=== PATIENT | female | born 1960 | race Caucasian/White ===

== ENCOUNTER 2017-01-12 15:05 | Emergency (ER) | payer MEDICARE, MEDICAID ==
[~2017-01-12] VITALS: Ht 162.6 cm; Wt 85.7 kg
[~2017-01-12 15:05] MED LIST: ABILIFY2 MG PO; ACETAMINOPHEN &1 TA1 PO; ACETAMINOPHEN500 M3 PO; ARIPIPRAZO10 MG/TABL PO; ATIVAN GENERIC 11 MG PO; CARAFATE1 GM PO; CLARITIN 10MG T10 MG PO; CLARITIN REDITA10 MG PO; CLONAZEPAM 1MG T1 MG PO; CYMBALTA30 M1 PO; CYMBALTA60 MG PO; FOLIC ACID 1MG T1 MG PO; GABAPENTIN 600600 MG PO; GABAPENTIN100 M1 PO; HUMIRA40 MG/0.1 SC; HYDROCODONE-APA1 TA1 PO; LASIX 40MG. TAB40 MG PO; LASIX20 MG PO; LEVAQUIN 750 M750 MG PO; LEVOTHYROXIN0.075 M1 PO; LIPITOR40 MG PO; LISINOPRIL 10MG10 MG PO; LISINOPRIL 20MG20 MG PO; LYRICA75 MG PO; MEDROL 4MG. DOSE4 MG PO; MELOXICAM15 MG PO; METHOTREXATE 22.5 MG PO; METOCLOPRAMIDE H5 MG PO; MIRALAX(PO17 GM/1 PA PO; NEXIUM20 MG PO; NICOTINE PATCH;21 MG TD; NORCO 325 MG-51 TAB PO; OMEPRAZOLE40 MG PO; OMNICEF 300 MG300 MG PO; OXAZEPAM 15MG C15 M1 PO; PHENERGAN 25MG.25 M1 PO; PRILOSEC20 M1 PO; PROGESTERONE100 M1 PO; RANITIDINE HCL150 MG PO; SEROQUEL100 MG PO; TORSEMIDE5 MG PO; TOVIAZ8 MG PO; ULTRACET 325 MG1 TAB PO; ZOFRAN 8MG TABLE8 MG PO
[2017-01-12] MEDS ORDERED: GABAPENTIN800 MG PO (15:13)
[2017-01-12] MEDS ORDERED: IBU800 MG PO (15:13)
--- OUTSIDE RECORDS SUMMARY | 2017-01-12 15:35 | External Medical Summary Rpt ---
Author Author , Organization [employer] Address Unknown Phone Unavailable Care Team Providers Care Art Therapist Name Role Phone ROBBY ARVIZU MD, PSC, Unavailable Unavailable ROBBY ARVIZU MD, PSC RUKHSANA QUINTEROS, Unavailable Unavailable [facility] BALLARD WRIGHT, MD,PSC BARDGETT, JR JAM, Unavailable Unavailable BARDGETT, JR JAM BEERS HALLIE, BEERS HALLIE Unavailable Unavailable BEERS HALLIE, BEERS HALLIE Unavailable Unavailable [facility] Unavailable Unavailable [facility], [facility] BRANDSER SHAZIA, Unavailable Unavailable BRANDSER SHAZIA FERNANDEZ, FERNANDEZ Unavailable Unavailable FERNANDEZ KEYUR, Unavailable Unavailable FERNANDEZ KEYUR C HAIR IRWIN MD Unavailable Unavailable PSC, C HAIR IRWIN MD PSC SOOD ERIC, SOOD Unavailable Unavailable ERIC [facility] RONALD J, RONALD J Unavailable Unavailable Law CARDENAS, RONALD, Unavailable Unavailable J G [facility], [facility] MIRANDA EMERALD, Unavailable Unavailable MIRANDA EMERALD JIN YOHANNES, Unavailable Unavailable JIN YOHANNES JIN, KILEY, Unavailable Unavailable JIN, KILEY DARDINGER SMITHA, Unavailable Unavailable DARDINGER SMITHA DAMICO GONZÁLEZ, Unavailable Unavailable DAMICO GONZÁLEZ DANYA BAR, DANYA BAR Unavailable Unavailable DUE THO, DUE THO Unavailable Unavailable EISENSTEIN ROBIN, Unavailable Unavailable EISENSTEIN ROBIN KELSEY TERRA, KELSEY TERRA Unavailable Unavailable [facility] Unavailable [facility]available [facility], [facility] FROILAN GONZÁLEZ, FROILAN Unavailable Unavailable GONZÁLEZ [facility] Unavailable Unavailable [facility], [facility] HEEB CHR, HEEB CHR Unavailable Unavailable HOBLITZEL OSIEL, Unavailable Unavailable HOBLITZEL OSIEL [facility] Unavailable [facility]available [facility], [facility] Unavailable [facility]available [facility], [facility] TAZ GRE, TAZ GRE Unavailable Unavailable TAZ GRE, TAZ GRE Unavailable Unavailable [facility], Unavailable Unavailable [facility] JAMES CRI, JAMES CRI Unavailable Unavailable LUBBERS ROBIN, LUBBERS Unavailable Unavailable ROBIN MCDANNOLD TER, Unavailable Unavailable ELINOLD TER JENNE JR, ELENA Unavailable Unavailable F, ZAIRA JR, ELENA F MATTHEW BRA, MATTHEW Unavailable Unavailable BRA PAULINO FARZAD, PAULINO Unavailable Unavailable FARZAD YURY FARZAD, YURY Unavailable Unavailable FARZAD MULBERRY TERRA, Unavailable Unavailable [facility]BERR[facility] TER[facility] Unavailable [facility]available [facility], [facility] MARCK R H, Unavailable Unavailable MARCK R H MARCK, R SERJIO, Unavailable Unavailable MARCK, R SERJIO ABEL TIFFANY, Unavailable Unavailable ABEL TIFFANY ABEL TIFFANY, Unavailable Unavailable ABEL TIFFANY [facility], [facility], Unavailable Unavailable [facility] Unavailable Unavailable [facility], [facility] YG TIFFANY, YG Unavailable Unavailable [facility] Unavailable [facility], Unavailable Unavailable [facility] TARA CHR, TARA CHR Unavailable Unavailable TARA CHR, TARA CHR Unavailable Unavailable SCHULSTAD VALERIE, Unavailable Unavailable SCHULSTAD VALERIE ZAPATA CHR, ZAPATA CHR Unavailable Unavailable SOKAN BAB, SOKAN BAB Unavailable Unavailable SOKAN, YONNY O, Unavailable Unavailable SOKAN, YONNY O [facility], Unavailable Unavailable [facility] Unavailable Unavailable [facility], [facility] Unavailable Unavailable [facility], [facility] Unavailable Unavailable PHYSICIANS, [facility] JEREMI, Unavailable Unavailable . [facility] JEREMI PANCHO JUDGE Unavailable Unavailable CHASE MEANS, Unavailable Unavailable CHASE DELEON [facility] Unavailable Unavailable #5, [facility] Unavailable Unavailable DIS[facility], [facility] Unavailable Unavailable [facility], [facility] Unavailable Unavailable [facility], [facility] Unavailable Unavailable AND R[facility], [facility] DECLAN DEN, DECLAN Unavailable Unavailable DEN UTTER MELCHOR, UTTER MELCHOR Unavailable Unavailable UTTER MELCHOR, UTTER MELCHOR Unavailable Unavailable [facility] Unavailable Unavailable OF [facility], [facility] ALDAIR RAE, QUINTEROS Unavailable Unavailable KYRA HERNANDEZ, ANA ROSA HERNANDEZ Unavailable Unavailable Purpose Continuity of Care Document - 09-10-2007 through 2016 Problems Code Diagnosis DOS Provider Status B9689 OTH SPEC 09-25-2016 ST BACTERIAL [facility] AGNT CAUSE PHYSICIANS DZ CLASSIFIED ELSW J0190 ACUTE 09-25-2016 ST SINUSITIS [facility] UNSPECIFIED PHYSICIANS K219 GASTRO-ESOP 09-25-2016 ST H REFLUX [facility] DISEASE PHYSICIANS WITHOUT ESOPHAGITIS K580 IRRITABLE 09-25-2016 ST BOWEL [facility] SYNDROME PHYSICIANS WITH DIARRHEA Z1211 ENCOUNTER 09-25-2016 ST SCREENING [facility] MALIGNANT PHYSICIANS NEOPLASM OF COLON Z6835 BODY MASS 09-25-2016 ST INDEX BMI [facility] 35.0-35.9 PHYSICIANS ADULT Z8719 PERSONAL 09-25-2016 ST HISTORY [facility] OTHER PHYSICIANS DISEASES DIGESTIVE SYSTEM 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 RIGHT KNEE [facility] JEREMI I43584 PAIN IN 05-21-2016 ST. LEFT ANKLE [facility] JEREMI M7121 SYNOVIAL 05-21-2016 [facility] CYST H POPLITEAL [facility] RIGHT KNEE P38721 POSTERIOR 05-21-2016 ST. 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 PRIMARY [facility] OSTEOARTHRI JEREMI TIS LEFT KNEE M1990 UNSPECIFIED 04-30-2016 ST. [facility] OSTEOARTHRI JEREMI TIS UNSPECIFIED SITE M7752 OTHER 04-30-2016 ST. ENTHESOPATH [facility] Y OF LEFT JEREMI FOOT [id number] STRESS 04-30-2016 ST. FRACTURE LT [facility] TIBIA JEREMI INITIAL ENC FRACTURE Z9889 OTHER 04-30-2016 ST. SPECIFIED [facility] POSTPROCEDU JEREMI [facility] STATES M1711 UNILATERAL 02-29-2016 [facility] PRIMARY H OSTEOARTHRI ORTHOPAEDIC TIS RIGHT CTR KNEE E0590 THYROTOXICO 02-18-2016 ST SIS UNS W/O [facility] THYROTOXIC MED CTR CRISIS/STOR M I10 ESSENTIAL 02-18-2016 ST PRIMARY [facility] HYPERTENSIO MED CTR N O87923 ENCOUNTER 02-15-2016 ST FOR OTHER [facility] PREPROCEDUR MED CTR AL EXAMINATION M179 OSTEOARTHRI 02-04-2016 ROBBY BUX, TIS OF KNEE , PSC UNSPECIFIED R892 ABN LEVL 01-23-2016 ST OTH RX MEDS [facility] BIO SUBS PHYSICIANS OTH ORGAN SYS TISS T148 OTHER 01-23-2016 ST INJURY OF [facility] UNSPECIFIED PHYSICIANS BODY REGION Z6836 BODY MASS 01-23-2016 ST INDEX BMI [facility] 36.0-36.9 PHYSICIANS ADULT Z538 PROC & 01-14-2016 ST TREATMENT [facility] NOT CARRIED MED CTR IRON MINER BLASTING OUT FOR ST OTH REASONS 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 LEFT LOWER [facility] LEG JEREMI R609 EDEMA 12-31-2015 ST. UNSPECIFIED [facility] JEREMI T16184 PAIN IN 12-12-2015 ST. LEFT KNEE [facility] JEREMI M797 FIBROMYALGI 12-12-2015 [facility] A H [facility]THOP[facility]IC CTR G75152 PAIN IN 10-31-2015 ST. RIGHT LEG [facility] JEREMI V48263 PAIN IN 10-31-2015 ST. RIGHT LOWER [facility] LEG JEREMI N3946 MIXED 08-13-2015 ST INCONTINENC [facility] E PHYSICIANS Z1231 ENCOUNTER 08-13-2015 ST SCREENING [facility] MAMMO MALIG PHYSICIANS NEOPLASM BREAST D689 COAGULATION 08-09-2015 ST DEFECT [facility] UNSPECIFIED MED CTR IRON MIN[facility] BLASTING [facility] E785 HYPERLIPIDE 08-07-2015 ST MAXINE [facility] UNSPECIFIED PHYSICIANS M542 CERVICALGIA 08-07-2015 ST [facility] PHYSICIANS N951 MENOPAUSAL 08-07-2015 ST AND FEMALE [facility] CLIMACTERIC PHYSICIANS STATES R601 GENERALIZED 08-07-2015 ST EDEMA [facility] PHYSICIANS R06268E STRAIN UNS 05-21-2015 ST. MUSCLE [facility] TENDON LOW JEREMI LEG RT LEG INIT ENC 2662 OTHER 04-19-2015 ST B-COMPLEX [facility] DEFICIENCIE PHYSICIANS S 2689 UNSPECIFIED 04-19-2015 ST VITAMIN D [facility] DEFICIENCY PHYSICIANS 2724 OTHER AND 04-19-2015 ST UNSPECIFIED [facility] PHYSICIANS HYPERLIPIDE MAXINE 4019 UNSPECIFIED 04-19-2015 ESSENTIAL [facility] HYPERTENSIO PHYSICIANS N 5950 ACUTE 04-19-2015 ST CYSTITIS [facility] PHYSICIANS 7140 RHEUMATOID 04-19-2015 ARTHRITIS [facility] PHYSICIANS 7291 UNSPECIFIED 04-19-2015 MYALGIA [facility] AND PHYSICIANS MYOSITIS 09347 URINARY 04-19-2015 ST FREQUENCY [facility] PHYSICIANS 95868 OTHER 03-07-2015 ST. CHRONIC [facility] PAIN JEREMI 97699 OSTEOARTHRO 03-07-2015 ST. SIS UNSPEC [facility] WHETHER JEREMI GEN/LOC LOWER LEG 89722 EFFUSION OF 03-07-2015 ST. LOWER LEG [facility] JOINT JEREMI 02468 PAIN IN 03-07-2015 ST. JOINT, [facility] LOWER LEG JEREMI 7242 LUMBAGO 02-26-2015 RUKHSANA QUINTEROS MD,PSC 90806 SWELLING OF 02-16-2015 ST LIMB [facility] 2720 PURE 01-04-2015 ST HYPERCHOLES [facility] TEROLEMIA MED CTR [place] [address] [address]3071 GENERALIZED 01-04-2015 ST ANXIETY [facility] DISORDER MED CTR [place] [address] 24913 OTHER ACUTE 01-04-2015 ST PAIN [facility] [place] [facility] 46948 ESOPHAGEAL 01-04-2015 ST REFLUX [facility] IRON MINER BLASTING ST 5641 IRRITABLE 01-04-2015 ST BOWEL [facility] SYNDROME MED CTR [place] [address] 65478 CHEST PAIN 01-04-2015 ST UNSPECIFIED [facility] MED CTR IRON MINER BLASTING ST 7210 CERVICAL 05-12-2014 RUKHSANA SPONDYLOSIS AMME QUINTEROS MD,PSC MYELOPATHY V5869 LONG-TERM 05-12-2014 RUKHSANA (CURRENT) ALDAIR, USE OF ,PSC OTHER MEDICATIONS 99417 OSTEOARTHRO 12-22-2013 [facility] S UNSPEC WHETHER GEN/LOC UNSPEC SITE 7226 DEGENERATIO 12-22-2013 TAZCsear ESPARZA N INTERVERTEB RAL DISC SITE UNSPEC 7231 CERVICALGIA 12-22-2013 [facility] GRE 62334 UNSPECIFIED 12-22-2013 [facility] URINARY INCONTINENC E 7220 DISPLCMT 11-23-2013 NEUROSCIENC CERV E INTERVERT ASSOICATES DISC OF N WITHOUT MYELOPATHY 5589 OTH&UNSPEC 11-10-2013 [facility] GRE NONINFECTIO US GASTROENTER ITIS&COLITI S 7295 PAIN IN 11-10-2013 [facility] GRE SOFT TISSUES OF LIMB 62128 UNS 11-05-2013 FROILAN GONZÁLEZ GASTRITIS&G ASTRODUODIT IS W/O MENTION HEMORR 08604 DIVERTICULO 11-05-2013 FROILAN GONZÁLEZ SIS OF COLON 95382 NAUSEA WITH 11-05-2013 FROILAN GONZÁLEZ VOMITING 2777 DYSMETABOLI 10-06-2013 TAZ ESPARZA C SYNDROME X 6272 SYMPTOMATIC 10-06-2013 TAZ ISAIAS MENOPAUSAL/ FEMALE CLIMACTERIC STATES 3540 CARPAL 06-15-2013 TAZ ISAIAS TUNNEL SYNDROME 5990 URINARY 06-15-2013 [facility] GRE TRACT INFECTION SITE NOT SPECIFIED 50564 EXOSTOSIS 06-15-2013 TAZ ESPARZA OF UNSPECIFIED SITE 39828 CRAMP OF 04-27-2013 TAZ ISAIAS LIMB V0481 NEED 04-27-2013 TAZ ESPARZA PROPHYLACTI C VACCINATION &INOCULATIO N FLU V700 ROUTINE 01-11-2013 TAZ ESPARZA GENERAL MEDICAL EXAM@HEALTH CARE FACL 3559 MONONEURITI 09-14-2012 ST. S OF [facility] UNSPECIFIED JEREMI SITE 7224 DEGENERATIO 09-14-2012 ST. N OF [facility] CERVICAL JEREMI INTERVERTEB RAL DISC 4739 UNSPECIFIED 08-19-2012 TAZ ISAIAS SINUSITIS 15408 NAUSEA 08-19-2012 TAZ ESPARZA ALONE 0539 HERPES 07-03-2012 UTTER MELCHOR ZOSTER WITHOUT MENTION OF COMPLICATIO N 2113 BENIGN 04-21-2012 [facility] NEOPLASM OF GASTROENTER COLON OLOGY A 4556 UNSPEC 04-21-2012 ST HEMORRHOIDS [facility] WITHOUT MEDICALCENT MENTION ER COMPLICATIO N V1851 FAMILY 04-21-2012 [facility] HISTORY DIGESTIVE COLONIC DISORDER POLYPS V1859 FAMILY 04-21-2012 ST HISTORY [facility] OTHER MEDICALCENT DIGESTIVE ER DISORDERS V0382 NEED PROPH 04-08-2012 [facility] GRE VACCINATION AGAINST STREP PNEUMONE 23434 OTHER 02-02-2012 [facility] [place] A 60143 OTHER SPEC 02-02-2012 [facility] GASTRITIS GASTROENTER WITHOUT OLOGY A MENTION HEMORRHAGE 5379 UNSPECIFIED 02-02-2012 ST DISORDER [facility] OF [facility] AND ER DUODENUM 7871 HEARTBURN 02-02-2012 [facility] DIGESTIVE DISORDER 62688 DYSPHAGIA 02-02-2012 [place] [address] ABDOMINAL 02-02-2012 [facility] PAIN RIGHT GASTROENTER UPPER OLOGY A QUADRANT 66965 ABDOMINAL 02-02-2012 ST [place] [address] ABDOMINAL 02-02-2012 ST PAIN [place] [address] CALCU 12-15-2011 DAMICO GALLBLADD GONZÁLEZ W/OTH CHOLECYST W/O MENTION OBST 41187 CHRONIC 12-15-2011 ST CHOLECYSTIT [facility] IS MEDICALCENT ER 5759 UNSPECIFIED 12-03-2011 DAMICO DISORDER GONZÁLEZ OF GALLBLADDER 12438 ABDOMINAL 11-26-2011 RADI[facility]Y PAIN, ASSOCIATES UNSPECIFIED OF [facility] SITE 16734 DIARRHEA 11-17-2011 [facility] 33572 OTHER&UNSPE 10-30-2011 [facility] NONSPECIFIC IMMUNOLOGIC AL FINDINGS 2809 UNSPECIFIED 09-30-2011 [facility] IRON DEFICIENCY ANEMIA 4779 ALLERGIC 09-15-2011 [facility] RHINITIS CAUSE UNSPECIFIED 49169 NODULAR 08-08-2011 TARA CHR LYMPHOMA UNSPEC SITE XTRANOD&CHENCHO ID ORGN 45858 OTH MALIG 08-06-2011 [facility] LYMPHOMAS ASS[facility]ATES UNS SITE OF [facility] XTRANOD&CHENCHO ID ORGN 75076 LEUKOCYTOSI 08-06-2011 RAD[facility]OLOG[facility] S ASSOCIATES UNSPECIFIED OF [facility] 7856 ENLARGEMENT 07-31-2011 TARA CHR OF LYMPH NODES 96594 SPONDYLOSIS 07-14-2011 ST. UNSPEC [facility] SITE W/O JEREMI MENTION MYELOPATHY 54381 EFFUSION OF 06-26-2011 BEERS HALLIE JOINT, SITE UNSPECIFIED 50534 PAIN IN 06-26-2011 AKOSUA HALLIE JOINT, SITE UNSPECIFIED 7804 DIZZINESS 05-05-2011 [place] [address] OBESITY, 01-24-2011 UNSPECIFIED [facility] V727 DIAGNOSTIC 01-24-2011 [facility] [place] [address] PAIN IN 12-27-2010 [facility] SHOULDER REGION 19334 PAIN IN 12-27-2010 [facility] ANKLE AND FOOT V7612 OTHER 12-20-2010 [facility] 19852 UNSPECIFIED 12-17-2010 [facility] OTALGIA [facility] 460 ACUTE 12-17-2010 [facility] NASOPHARYNG [facility] ITIS 7823 EDEMA 12-13-2010 [facility] 6262 EXCESSIVE 12-12-2010 [facility] [place] N 28210 SHORTNESS 12-12-2010 [facility] 61733 MEMORY LOSS 12-10-2010 [facility] 2449 UNSPECIFIED 12-05-2010 [facility] HYPOTHYROID INC ISM 43479 DIAB W/O 12-05-2010 [facility] COMP TYPE [facility] II/UNS NOT INC STATED UNCNTRL 2890 POLYCYTHEMI 12-05-2010 [facility] A, [facility] SECONDARY INC 3569 UNSPEC 12-05-2010 [facility] HEREDIT&IDI [facility] OPATHIC INC PERIPHERAL NEUROPATHY 7820 DISTURBANCE 12-03-2010 ABEL OF SKIN TIFFANY SENSATION 5693 HEMORRHAGE 11-26-2010 C HAIR OF RECTUM DC AND ANUS PSC 52416 ABDOMINAL 11-26-2010 C HAIR PAIN RIGHT DC LOWER PSC QUADRANT 21716 ABDOMINAL 11-26-2010 C HAIR PAIN, LEFT DC LOWER PSC QUADRANT 7234 BRACHIAL 11-18-2010 [facility] NEURITIS OR [facility] RADICULITIS NOS 6268 OTH D/O 11-14-2010 [facility] MENSTRUATIO [facility] N&OTH ABN BLEED FE GNT TRACT 19979 OTHER 10-21-2010 [facility] MALAISE AND [facility] FATIGUE 7239 UNSPEC 10-11-2010 [facility] MUSCULOSKEL [facility] D/O&SYMPTOM S REFERABLE NECK 6929 CONTACT 10-01-2010 [facility] DERMATITIS[facility] OTHER ECZEMA DUE UNSPEC CAUSE 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[facility] 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 18256 ENTHESOPATH 12-13-2009 KUNATH, Y OF BYERS & UNSPECIFIED TEMMING SITE 8489 UNSPECIFIED 10-08-2009 [facility] SITE OF ASSOCIATES SPRAIN AND STRAIN 22777 ACUTE 07-25-2009 [facility] SEROUS [facility] OTITIS MEDIA 7931 NONSPEC 07-20-2009 [place] [facility] OTH EXAM INC BODY STRUCT LUNG FIELD 490 BRONCHITIS 07-13-2009 [facility] NOT ASSOCIATES SPECIFIED ACUTE OR CHRONIC 7850 UNSPECIFIED 06-29-2009 [facility] PROF SERV 4660 ACUTE 06-19-2009 [facility] BRONCHITIS [facility] 7243 SCIATICA 03-28-2009 [facility] 95683 OTHER 05-04-2008 [facility] INJURY OF ASSOCIATES CHEST WALL 3829 UNSPECIFIED 03-06-2008 [facility] OTITIS [facility] MEDIA 89979 UNSPECIFIED 12-02-2007 CH[facility] DELEON OSTEOPOROSI S 17648 CLOSED 10-11-2007 RESPIRATORY FRACTURE OF [facility] B[facility] INC E8889 UNSPECIFIED 09-25-2007 [facility] 09674 SPRAIN AND 09-24-2007 [facility] STRAIN OF [facility] UNSPECIFIED INC SITE OF FOOT 7992 SIGNS AND 09-23-2007 [facility] EMOTIONAL SERVICE STATE B96.89 Other specified bacterial agents as the cause of diseases classified elsewhere F33.9 Major depressive disorder, recurrent, unspecified F41.9 ANXIETY DISORDER, UNSPECIFIED I10 ESSENTIAL (PRIMARY) HYPERTENSIO N J01.90 Acute sinusitis, unspecified J20.9 ACUTE BRONCHITIS, UNSPECIFIED J30.2 Other seasonal allergic rhinitis J44.1 CHRONIC OBSTRUCTIVE PULMONARY DISEASE W (ACUTE) EXACERBATIO N J45.909 UNSPECIFIED ASTHMA, UNCOMPLICAT ED K21.9 Gastro-esop hageal reflux disease without esophagitis K29.70 GASTRITIS, UNSPECIFIED , WITHOUT BLEEDING K42.9 Umbilical hernia without obstruction or gangrene K57.90 DVRTCLOS OF INTEST, PART UNSP, W/O PERF OR ABSCESS W/O BLEED K58.0 Irritable bowel syndrome with diarrhea M06.9 RHEUMATOID ARTHRITIS, UNSPECIFIED M79.7 Fibromyalgi a N39.0 URINARY TRACT INFECTION, SITE NOT SPECIFIED N39.46 Mixed incontinenc e N95.1 Menopausal and female climacteric states R11.0 Nausea R51 HEADACHE R79.89 OTHER SPECIFIED ABNORMAL FINDINGS OF BLOOD CHEMISTRY Z12.11 Encounter for screening for malignant neoplasm of colon Z12.31 Encounter for screening mammogram for malignant neoplasm of breast Z12.4 Encounter for screening for malignant neoplasm of cervix Z87.19 Personal history of other diseases of the digestive system Medications Na ND Rx Da Fi Fi Am Da Di Ph RX Ph St me C No te ll ll ou ys ag ar # ys at rm s nt no ma ic us Or Da si cy ia de te s n re d LO 00 09 10 3 60 30 77 SN Ac RA 22 -1 -1 .0 35 ID ti ZE 82 2- 1- 00 06 ER ve PA 05 20 20 M 95 11 11 BR 1 0 UC MG E A TA BL ET FE 00 10 10 2 30 30 77 KO Ac RR 67 -0 -0 .0 55 O ti OU 70 4- 4- 00 09 GR ve S 07 20 20 EG BIRD 01 11 11 OR LF 0 Y AT T E 32 5 MG TA BL ET LO 51 04 09 5 30 30 76 CO Ac RA 66 -2 -3 .0 22 OP ti TA 00 6- 0- 00 83 ER ve DI 52 20 20 NE 60 11 11 CUATE 5 HN 10 G MG TA BL ET FO 00 12 09 5 30 30 75 TE Ac LI 60 -0 -2 .0 00 MM ti C 33 6- 0- 00 00 IN ve AC 16 20 20 G ID 23 10 11 CUATE 1 2 SE PH MG E TA BL ET LO 00 09 09 3 60 30 77 SN Ac RA 59 -1 -1 .0 35 ID ti ZE 10 2- 2- 00 06 ER ve PA 24 20 20 M 11 11 11 BR 1 0 UC MG E A TA BL ET LO 51 04 09 5 30 30 76 CO Ac RA 66 -2 -0 .0 22 OP ti TA 00 6- 2- 00 83 ER ve DI 52 20 20 NE 60 11 11 CUATE 5 HN 10 G MG TA BL ET FO 00 12 08 5 30 30 75 TE Ac LI 60 -0 -1 .0 00 MM ti C 33 6- 9- 00 00 IN ve AC 16 20 20 G ID 23 10 11 CUATE 1 2 SE PH MG E TA BL ET LO 00 06 08 2 90 30 76 SN Ac RA 59 -0 -1 .0 54 ID ti ZE 10 2- 2- 00 77 ER ve PA 24 20 20 M 11 11 11 BR 1 0 UC MG E A TA BL ET LO 51 04 08 5 30 30 76 CO Ac RA 66 -2 -0 .0 22 OP ti TA 00 6- 4- 00 83 ER ve DI 52 20 20 NE 60 11 11 CUATE 5 HN 10 G MG TA BL ET FO 00 12 07 5 30 30 75 TE Ac LI 60 -0 -2 .0 00 MM ti C 33 6- 0- 00 00 IN ve AC 16 20 20 G ID 23 10 11 CUATE 1 2 SE PH MG E TA BL ET LO 00 06 07 2 90 30 76 SN Ac RA 59 -0 -1 .0 54 ID ti ZE 10 2- 1- 00 77 ER ve PA 24 20 20 M 11 11 11 BR 1 0 UC MG E A TA BL ET LO 51 04 06 5 30 30 76 CO Ac RA 66 -2 -3 .0 22 OP ti TA 00 6- 0- 00 83 ER ve DI 52 20 20 NE 60 11 11 CUAET 5 HN 10 G MG TA BL ET FO 00 12 06 5 30 30 75 TE Ac LI 60 -0 -2 .0 00 MM ti C 33 6- 0- 00 00 IN ve AC 16 20 20 G ID 23 10 11 CUATE 1 2 SE PH MG E TA BL ET LO 00 06 06 2 90 30 76 SN Ac RA 59 -0 -1 .0 54 ID ti ZE 10 2- 1- 00 77 ER ve PA 24 20 20 M 11 11 11 BR 1 0 UC MG E A TA BL ET LO 51 04 05 5 30 30 76 CO Ac RA 66 -2 -2 .0 22 OP ti TA 00 6- 8- 00 83 ER ve DI 52 20 20 NE 60 11 11 CUATE 5 HN 10 G MG TA BL ET FO 00 12 05 5 30 30 75 TE Ac LI 60 -0 -1 .0 00 MM ti C 33 6- 9- 00 00 IN ve AC 16 20 20 G ID 23 10 11 CUATE 1 2 SE PH MG E TA BL ET LO 00 04 05 1 90 30 76 SN Ac RA 59 -1 -1 .0 14 ID ti ZE 10 5- 4- 00 42 ER ve PA 24 20 20 M 11 11 11 BR 1 0 UC MG E A TA BL ET LO 51 04 04 5 30 30 76 CO Ac RA 66 -2 -2 .0 22 OP ti TA 00 6- 6- 00 83 ER ve DI 52 20 20 NE 60 11 11 CUATE 5 HN 10 G MG TA BL ET FO 00 12 04 5 30 30 75 TE Ac LI 60 -0 -2 .0 00 MM ti C 33 6- 0- 00 00 IN ve AC 16 20 20 G ID 23 10 11 CUATE 1 2 SE PH MG E TA BL ET LO 00 04 04 1 90 30 76 SN Ac RA 59 -1 -1 .0 14 ID ti ZE 10 5- 5- 00 42 ER ve PA 24 20 20 M 11 11 11 BR 1 0 UC MG E A TA BL ET LO 51 12 03 3 30 30 75 CO Ac RA 66 -2 -3 .0 09 OP ti TA 00 0- 0- 00 67 ER ve DI 52 20 20 NE 60 10 11 CUATE 5 HN 10 G MG TA BL ET FO 00 05 03 5 30 30 73 TE Ac LI 60 -0 -1 .0 21 MM ti C 33 6- 8- 00 13 IN ve AC 16 20 20 G ID 23 10 11 CUATE 1 2 SE PH MG E TA BL ET LO 00 12 03 3 90 30 74 SN Ac RA 59 -0 -1 .0 97 ID ti ZE 10 6- 6- 00 01 ER ve PA 24 20 20 M 11 10 11 BR 1 0 UC MG E A TA BL ET LO 51 12 02 3 30 30 75 CO Ac RA 66 -2 -2 .0 09 OP ti TA 00 0- 8- 00 67 ER ve DI 52 20 20 NE 60 10 11 CUATE 5 HN 10 G MG TA BL ET LO 00 12 02 3 90 30 74 SN Ac RA 59 -0 -1 .0 97 ID ti ZE 10 6- 7- 00 01 ER ve PA 24 20 20 M 11 10 11 BR 1 0 UC MG E A TA BL ET FO 00 05 02 5 30 30 73 TE Ac LI 60 -0 -1 .0 21 MM ti C 33 6- 5- 00 13 IN ve AC 16 20 20 G ID 23 10 11 CUATE 1 2 SE PH MG E TA BL ET LO 51 12 01 3 30 30 75 CO Ac RA 66 -2 -2 .0 09 OP ti TA 00 0- 5- 00 67 ER ve DI 52 20 20 NE 60 10 11 CUATE 5 HN 10 G MG TA BL ET LO 00 12 01 3 90 30 74 SN Ac RA 59 -0 -1 .0 97 ID ti ZE 10 6- 8- 00 01 ER ve PA 24 20 20 M 11 10 11 BR 1 0 UC MG E A TA BL ET FO 00 05 01 5 30 30 73 TE Ac LI 14 -0 -1 .0 21 MM ti C 31 6- 0- 00 13 IN ve AC 24 20 20 G ID 81 10 11 CUATE 1 0 SE PH MG E TA BL ET LO 51 12 12 3 30 30 75 CO Ac RA 66 -2 -2 .0 09 OP ti TA 00 0- 0- 00 67 ER ve DI 52 20 20 NE 60 10 10 CUATE 5 HN 10 G MG TA BL ET LO 00 12 12 3 90 30 74 SN Ac RA 59 -0 -2 .0 97 ID ti ZE 10 6- 0- 00 01 ER ve PA 24 20 20 M 11 10 10 BR 1 0 UC MG E A TA BL ET FO 00 05 12 5 30 30 73 TE Ac LI 14 -0 -0 .0 21 MM ti C 31 6- 6- 00 13 IN ve AC 24 20 20 G ID 81 10 10 CUATE 1 0 SE PH MG E TA BL ET LO 51 07 11 4 30 30 73 CO Ac RA 66 -2 -2 .0 85 OP ti TA 00 7- 2- 00 36 ER ve DI 52 20 20 NE 60 10 10 CUATE 5 HN 10 G MG TA BL ET LO 00 07 11 3 90 30 73 SN Ac RA 59 -2 -1 .0 79 ID ti ZE 10 1- 9- 00 84 ER ve PA 24 20 20 M 11 10 10 BR 1 0 UC MG E A TA BL ET FO 00 05 11 5 30 30 73 TE Ac LI 14 -0 -0 .0 21 MM ti C 31 6- 4- 00 13 IN ve AC 24 20 20 G ID 81 10 10 CUATE 1 0 SE PH MG E TA BL ET LO 45 07 10 4 30 30 73 CO Ac RA 80 -2 -2 .0 85 OP ti TA 20 7- 5- 00 36 ER ve DI 65 20 20 NE 08 10 10 CUATE 7 HN 10 G MG TA BL ET LO 00 07 10 3 90 30 73 SN Ac RA 59 -2 -2 .0 79 ID ti ZE 10 1- 1- 00 84 ER ve PA 24 20 20 M 11 10 10 BR 1 0 UC MG E A TA BL ET FO 00 05 09 5 30 30 73 TE Ac LI 14 -0 -3 .0 21 MM ti C 31 6- 0- 00 13 IN ve AC 24 20 20 G ID 81 10 10 CUATE 1 0 SE PH MG E TA BL ET LO 45 07 09 4 30 30 73 CO Ac RA 80 -2 -2 .0 85 OP ti TA 20 7- 4- 00 36 ER ve DI 65 20 20 NE 08 10 10 CUATE 7 HN 10 G MG TA BL ET LO 00 07 09 3 90 30 73 SN Ac RA 59 -2 -2 .0 79 ID ti ZE 10 1- 3- 00 84 ER ve PA 24 20 20 M 11 10 10 BR 1 0 UC MG E A TA BL ET FO 00 02 08 6 30 30 72 TE Ac LI 14 -2 -3 .0 60 MM ti C 31 5- 1- 00 38 IN ve AC 24 20 20 G ID 81 10 10 CUATE 1 0 SE PH MG E TA BL ET LO 45 07 08 4 30 30 73 CO Ac RA 80 -2 -2 .0 85 OP ti TA 20 7- 7- 00 36 ER ve DI 65 20 20 NE 08 10 10 CUATE 7 HN 10 G MG TA BL ET LO 00 07 08 3 90 30 73 SN Ac RA 59 -2 -2 .0 79 ID ti ZE 10 84 ER ve PA 24 20 20 M 11 10 10 BR 1 0 UC MG E A TA BL ET LO 45 07 07 4 30 30 73 CO Ac RA 80 -2 -2 .0 85 OP ti TA 20 7- 7- 00 36 ER ve DI 65 20 20 NE 08 10 10 CUATE 7 HN 10 G MG TA BL ET LO 00 03 07 4 90 30 72 SN Ac RA 59 -3 -2 .0 90 ID ti ZE 10 0- 6- 00 00 ER ve PA 24 20 20 M 11 10 10 BR 1 0 UC MG E A TA BL ET FO 00 02 07 6 30 30 72 TE Ac LI 14 -2 -2 .0 60 MM ti C 31 5- 6- 00 38 IN ve AC 24 20 20 G ID 81 10 10 CUATE 1 0 SE PH MG E TA BL ET LO 45 03 06 3 30 30 72 CO Ac RA 80 -1 -2 .0 77 OP ti TA 20 7- 8- 00 72 ER ve DI 65 20 20 NE 08 10 10 CUATE 7 HN 10 G MG TA BL ET LO 00 03 06 4 90 30 72 SN Ac RA 59 -3 -2 .0 90 ID ti ZE 10 0- 8- 00 00 ER ve PA 24 20 20 M 11 10 10 BR 1 0 UC MG E A TA BL ET FO 00 02 06 6 30 30 72 TE Ac LI 14 -2 -2 .0 60 MM ti C 31 5- 8- 00 38 IN ve AC 24 20 20 G ID 81 10 10 CUATE 1 0 SE PH MG E TA BL ET LO 45 03 05 3 30 30 72 CO Ac RA 80 -1 -2 .0 77 OP ti TA 20 7- 9- 00 72 ER ve DI 65 20 20 NE 07 10 10 CUATE 8 HN 10 G MG TA BL ET LO 00 03 05 4 90 30 72 SN Ac RA 59 -3 -2 .0 90 ID ti ZE 10 0- 9- 00 00 ER ve PA 24 20 20 M 11 10 10 BR 1 0 UC MG E A TA BL ET FO 00 02 05 6 30 30 72 TE Ac LI 14 -2 -2 .0 60 MM ti C 31 5- 9- 00 38 IN ve AC 24 20 20 G ID 81 10 10 CUATE 1 0 SE PH MG E TA BL ET LO 00 03 04 4 90 30 72 SN Ac RA 59 -3 -3 .0 90 ID ti ZE 10 0- 0- 00 00 ER ve PA 24 20 20 M 11 10 10 BR 1 0 UC MG E A TA BL ET FO 00 02 04 6 30 30 72 TE Ac LI 14 -2 -3 .0 60 MM ti C 31 5- 0- 00 38 IN ve AC 24 20 20 G ID 81 10 10 CUATE 1 0 SE PH MG E TA BL ET LO 45 03 04 3 30 30 72 CO Ac RA 80 -1 -2 .0 77 OP ti TA 20 7- 1- 00 72 ER ve DI 65 20 20 NE 08 10 10 CUATE 7 HN 10 G MG TA BL ET LO 00 03 03 4 90 30 72 SN Ac RA 59 -3 -3 .0 90 ID ti ZE 10 0- 0- 00 00 ER ve PA 24 20 20 M 11 10 10 BR 1 0 UC MG E A TA BL ET FO 00 02 03 6 30 30 72 TE Ac LI 14 -2 -2 .0 60 MM ti C 31 5- 9- 00 38 IN ve AC 24 20 20 G ID 81 10 10 CUATE 1 0 SE PH MG E TA BL ET LO 45 03 03 3 30 30 72 CO Ac RA 80 -1 -1 .0 77 OP ti TA 20 7- 7- 00 72 ER ve DI 65 20 20 NE 08 10 10 CUATE 7 HN 10 G MG TA BL ET AL 00 03 03 1 60 30 72 SN Ac ID 78 -0 -0 .0 64 ID ti AZ 11 2- 2- 00 96 ER ve OL 07 20 20 AM 70 10 10 BR 5 UC 0. E 5 A MG TA BL ET LO 45 11 02 03 30 30 TO 71 NO Ac RA 80 -1 -2 .0 TA 69 RF ti TA 20 0- 6- 00 L 63 LE ve DI 65 20 20 CA ET NE 08 09 10 RE R 7 10 PH HE AR NR MG MA Y CY TA BL #5 ET DI 00 02 02 00 60 30 TO 72 SN Ac AZ 59 -0 -1 .0 TA 41 ID ti EP 15 3- 1- 00 L 61 ER ve AM 61 20 20 CA 5 90 10 10 RE BR 5 UC MG PH E AR A TA MA BL CY ET #5 FO 00 02 01 00 30 30 TO 66 TE Ac LI 14 -1 -2 .0 TA 63 MM ti C 31 7- 8- 00 L 36 IN ve AC 24 20 20 CA G ID 81 09 10 RE CUATE 1 0 SE PH PH MG AR E MA TA CY BL ET #5 AL 00 12 01 01 90 30 TO 72 SN Ac ID 78 -2 -2 .0 TA 06 ID ti AZ 11 2- 8- 00 L 69 ER ve OL 07 20 20 CA AM 70 09 10 RE BR 5 UC 0. PH E 5 AR A MG MA CY TA BL #5 ET LO 45 11 01 02 30 30 TO 71 NO Ac RA 80 -1 -2 .0 TA 69 RF ti TA 20 0- 8- 00 L 63 LE ve DI 65 20 20 CA ET NE 08 09 10 RE R 7 10 PH HE AR NR MG MA Y CY TA BL #5 ET AL 00 12 12 00 90 30 TO 72 SN Ac ID 78 -2 -3 .0 TA 06 ID ti AZ 11 2- 1- 00 L 69 ER ve OL 07 20 20 CA AM 70 09 09 RE BR 5 UC 0. PH E 5 AR A MG MA CY TA BL #5 ET FO 00 10 12 02 30 30 TO 71 TE Ac LI 14 -1 -3 .0 TA 42 MM ti C 31 2- 1- 00 L 35 IN ve AC 24 20 20 CA G ID 81 09 09 RE CUATE 1 0 SE PH PH MG AR E MA TA CY BL ET #5 ME 00 12 12 00 20 20 TO 72 NO Ac CL 53 -1 -3 .0 TA 01 RF ti IZ 63 6- 1- 00 L 58 LE ve IN 98 20 20 CA ET E 50 09 09 RE R 12 1 .5 PH HE AR NR MG MA Y CY TA BL #5 ET LO 45 11 12 01 30 30 TO 71 NO Ac RA 80 -1 -1 .0 TA 69 RF ti TA 20 0- 7- 00 L 63 LE ve DI 65 20 20 CA ET NE 08 09 09 RE R 7 10 PH HE AR NR MG MA Y CY TA BL #5 ET FO 00 10 12 01 30 30 TO 71 TE Ac LI 14 -1 -0 .0 TA 42 MM ti C 31 2- 3- 00 L 35 IN ve AC 24 20 20 CA G ID 81 09 09 RE CUATE 1 0 SE PH PH MG AR E MA TA CY BL ET #5 AL 00 09 12 02 90 30 TO 71 SN Ac ID 78 -2 -0 .0 TA 26 ID ti AZ 11 4- 3- 00 L 87 ER ve OL 07 20 20 CA AM 70 09 09 RE BR 5 UC 0. PH E 5 AR A MG MA CY TA BL #5 ET LO 45 11 11 00 30 30 TO 71 NO Ac RA 80 -1 -1 .0 TA 69 RF ti TA 20 0- 9- 00 L 63 LE ve DI 65 20 20 CA ET NE 08 09 09 RE R 7 10 PH HE AR NR MG MA Y CY TA BL #5 ET 60 11 11 00 18 4 TO 71 NO Ac 25 -1 -1 0. TA 69 RF ti 80 0- 9- 00 L 57 LE ve 23 20 20 0 CA ET 91 09 09 RE R 6 PH HE AR NR MA Y CY #5 FO 00 10 11 00 30 30 TO 71 TE Ac LI 14 -1 -0 .0 TA 42 MM ti C 31 2- 5- 00 L 35 IN ve AC 24 20 20 CA G ID 81 09 09 RE CUATE 1 0 SE PH PH MG AR E MA TA CY BL ET #5 AL 00 09 11 01 90 30 TO 71 SN Ac ID 78 -2 -0 .0 TA 26 ID ti AZ 11 4- 5- 00 L 87 ER ve OL 07 20 20 CA AM 70 09 09 RE BR 5 UC 0. PH E 5 AR A MG MA CY TA BL #5 ET FO 00 09 10 00 30 30 TO 71 TE Ac LI 14 -2 -0 .0 TA 26 MM ti C 31 4- 8- 00 L 52 IN ve AC 24 20 20 CA G ID 81 09 09 RE CUATE 1 0 SE PH PH MG AR E MA TA CY BL ET #5 AL 00 09 10 00 90 30 TO 71 SN Ac ID 78 -2 -0 .0 TA 26 ID ti AZ 11 4- 8- 00 L 87 ER ve OL 07 20 20 CA AM 70 09 09 RE BR 5 UC 0. PH E 5 AR A MG MA CY TA BL #5 ET LO 00 08 09 01 90 30 TO 70 NO Ac RA 59 -1 -2 .0 TA 91 RF ti ZE 10 4- 4- 00 L 87 LE ve PA 24 20 20 CA ET M 11 09 09 RE R 1 0 MG PH HE AR NR TA MA Y BL CY ET #5 FO 00 06 09 02 30 30 TO 70 TE Ac LI 14 -2 -1 .0 TA 51 MM ti C 31 2- 0- 00 L 33 IN ve AC 24 20 20 CA G ID 81 09 09 RE CUATE 1 0 SE PH PH MG AR E MA TA CY BL ET #5 LO 00 08 08 00 90 30 TO 70 NO Ac RA 59 -1 -2 .0 TA 91 RF ti ZE 10 4- 7- 00 L 87 LE ve PA 24 20 20 CA ET M 11 09 09 RE R 1 0 MG PH HE AR NR TA MA Y BL CY ET #5 FO 00 06 07 01 30 30 TO 70 TE Ac LI 59 -2 -3 .0 TA 51 MM ti C 15 2- 0- 00 L 33 IN ve AC 21 20 20 CA G ID 61 09 09 RE CUATE 1 0 SE PH PH MG AR E MA TA CY BL ET #5 LO 00 06 07 01 90 30 TO 70 NO Ac RA 59 -1 -3 .0 TA 45 RF ti ZE 10 5- 0- 00 L 63 LE ve PA 24 20 20 CA ET M 11 09 09 RE R 1 0 MG PH HE AR NR TA MA Y BL CY ET #5 LO 00 06 07 00 90 30 TO 70 NO Ac RA 59 -1 -0 .0 TA 45 RF ti ZE 10 5- 2- 00 L 63 LE ve PA 24 20 20 CA ET M 11 09 09 RE R 1 0 MG PH HE AR NR TA MA Y BL CY ET #5 FO 00 06 07 00 30 30 TO 70 TE Ac LI 59 -2 -0 .0 TA 51 MM ti C 15 2- 2- 00 L 33 IN ve AC 21 20 20 CA G ID 61 09 09 RE CUATE 1 0 SE PH PH MG AR E MA TA CY BL ET #5 LO 00 05 05 00 90 30 TO 70 CO Ac RA 59 -1 -2 .0 TA 15 OP ti ZE 10 1- 1- 00 L 72 ER ve PA 24 20 20 CA M 11 09 09 RE CUATE 1 0 HN MG PH G AR TA MA BL CY ET #5 LO 00 04 04 00 90 30 TO 67 CO Ac RA 59 -1 -2 .0 TA 05 OP ti ZE 10 0- 3- 00 L 34 ER ve PA 24 20 20 CA M 11 09 09 RE CUATE 1 0 HN MG PH G AR TA MA BL CY ET #5 00 12 03 02 90 30 TO 66 CO Ac 78 -3 -2 .0 TA 17 OP ti 11 0- 6- 00 L 01 ER ve 40 20 20 CA 40 08 09 RE CUATE 5 HN PH G AR MA CY #5 00 12 02 01 90 30 TO 66 CO Ac 78 -3 -1 .0 TA 17 OP ti 11 0- 2- 00 L 01 ER ve 40 20 20 CA 40 08 09 RE CUATE 5 HN PH G AR MA CY #5 00 12 01 00 90 30 TO 66 CO Ac 78 -3 -1 .0 TA 17 OP ti 11 0- 5- 00 L 01 ER ve 40 20 20 CA 40 08 09 RE CUATE 5 HN PH G AR MA CY #5 00 11 12 00 90 30 TO 65 CO Ac 78 -2 -0 .0 TA 92 OP ti 11 8- 4- 00 L 65 ER ve 40 20 20 CA 40 08 08 RE CUATE 5 HN PH G AR MA CY #5 00 10 11 00 90 30 PH 65 NO Ac 78 -2 -0 .0 AR 63 RF ti 11 3- 7- 00 MC 11 LE ve 40 20 20 AR ET 40 08 08 E R 5 PH AR HE MA NR CY Y 00 09 10 00 66 22 PH 65 NO Ac 78 -1 -0 .0 AR 30 RF ti 11 2- 9- 00 MC 94 LE ve 40 20 20 AR ET 40 08 08 E R 5 PH AR HE MA NR CY Y FO 00 05 08 03 30 30 PH 64 TE Ac LI 14 -1 -2 .0 AR 48 MM ti C 31 2- 8- 00 MC 79 IN ve AC 24 20 20 AR G ID 81 08 08 E CUATE 1 0 PH SE AR PH MG MA E CY TA BL ET LO 00 05 08 02 90 30 PH 64 CO Ac RA 59 -3 -1 .0 AR 62 OP ti ZE 10 1- 4- 00 MC 09 ER ve PA 24 20 20 AR M 10 08 08 E CUATE 1 5 PH HN MG AR G MA TA CY BL ET FO 00 05 08 02 30 30 PH 64 TE Ac LI 14 -1 -0 .0 AR 48 MM ti C 31 2- 1- 00 MC 79 IN ve AC 24 20 20 AR G ID 81 08 08 E CUATE 1 0 PH SE AR PH MG MA E CY TA BL ET LO 00 05 07 01 90 30 PH 64 CO Ac RA 59 -3 -1 .0 AR 62 OP ti ZE 10 1- 7- 00 MC 09 ER ve PA 24 20 20 AR M 10 08 08 E CUATE 1 5 PH HN MG AR G MA TA CY BL ET FO 00 05 07 01 30 30 PH 64 TE Ac LI 14 -1 -0 .0 AR 48 MM ti C 31 2- 3- 00 MC 79 IN ve AC 24 20 20 AR G ID 81 08 08 E CUATE 1 0 PH SE AR PH MG MA E CY TA BL ET LO 00 05 06 00 90 30 PH 64 CO Ac RA 59 -3 -1 .0 AR 62 OP ti ZE 10 1- 2- 00 MC 09 ER ve PA 24 20 20 AR M 10 08 08 E CUATE 1 5 PH HN MG AR G MA TA CY BL ET FO 00 05 05 00 30 30 TO 64 No Ac LI 14 -1 -2 .0 TA 48 t ti C 31 2- 2- 00 L 79 Av ve AC 24 20 20 CA ai ID 81 08 08 RE la 1 0 bl PH e MG AR MA TA CY BL ET #5 FO 00 10 04 05 30 30 PH 62 No Ac LI 14 -2 -2 .0 AR 98 t ti C 31 9- 4- 00 MC 16 Av ve AC 24 20 20 AR ai ID 81 07 08 E la 1 0 PH bl AR e MG MA CY TA BL ET FO 00 10 04 04 30 30 PH 62 No Ac LI 14 -2 -1 .0 AR 98 t ti C 31 9- 7- 00 MC 16 Av ve AC 24 20 20 AR ai ID 81 07 08 E la 1 0 PH bl AR e MG MA CY TA BL ET LO 00 11 04 04 90 30 PH 63 No Ac RA 59 -1 -1 .0 AR 08 t ti ZE 10 0- 0- 00 MC 67 Av ve PA 24 20 20 AR ai M 10 07 08 E la 1 5 PH bl MG AR e MA TA CY BL ET LO 00 11 04 03 90 30 PH 63 No Ac RA 59 -1 -0 .0 AR 08 t ti ZE 10 0- 7- 00 MC 67 Av ve PA 24 20 20 AR ai M 10 07 08 E la 1 5 PH bl MG AR e MA TA CY BL ET FO 00 10 03 03 30 30 PH 62 No Ac LI 14 -2 -2 .0 AR 98 t ti C 31 9- 6- 00 MC 16 Av ve AC 24 20 20 AR ai ID 81 07 08 E la 1 0 PH bl AR e MG MA CY TA BL ET LO 00 11 03 02 90 30 PH 63 No Ac RA 59 -1 -2 .0 AR 08 t ti ZE 10 0- 5- 00 MC 67 Av ve PA 24 20 20 AR ai M 10 07 08 E la 1 5 PH bl MG AR e MA TA CY BL ET FO 00 10 03 02 30 30 PH 62 No Ac LI 14 -2 -2 .0 AR 98 t ti C 31 9- 4- 00 MC 16 Av ve AC 24 20 20 AR ai ID 81 07 08 E la 1 0 PH bl AR e MG MA CY TA BL ET Immunization Name Date Route CVX Reacti Commen Provid Is Given on t er Refuse d IIV3 RONALD No VACCIN 2009 J E SPLIT VIRUS 0.5 ML DOSAGE IM USE IIV3 RONALD No VACCIN 2008 , J G E SPLIT VIRUS 0.5 ML DOSAGE IM USE Procedures Procedure DOS Code Location Performer Comment BMI DOC G8419 [facility] OUT NML 7 [facility] IQRA NO F/U PLN PHYSICIAN DOC NO S RSN GVN INFLUENZA G8482 [facility] 7 [facility] IMMUNIZAT ION PHYSICIAN ADMIN/PRE S VIOUSLY RECEIVED DEPRESSIO G8432 [facility] N SCR NOT 7 [facility] DOCUMENTE PHYSICIAN D REASON S NOT GIVEN COLORECTA 3017F [facility] L CANCER 7 [facility] SCREENING RESULTS PHYSICIAN DOC&REV S SCREENING 3014F [facility] 7 [facility] MAMMOGRAP HY PHYSICIAN RESULTS S DOC&REV WALKING L4361 [facility] BOOT 6 [facility] L[facility] PNEUMATIC ORTHOPAED ORTHOPAED AND OR IC CTR IC CTR VACUUM PREFAB RADIOLOGI 79549 RADIOLOGY YURY C 6 FARZAD EXAMINATI ASSOCIATE ON KNEE 3 S OF NOTH VIEWS INJECTION J1040 [facility] 6 LTH LTH METHYLPRE ORTHOPAED ORTHOPAED DNISOLONE IC CTR IC CTR ACETATE 80 MG ARTHROCEN 33875 [facility] TESIS 6 LTH LTH ASPIR&/IN ORTHOPAED ORTHOPAED J MAJOR IC CTR IC CTR JT/BURSA W/O US RADEX 15282 RADIOLOGY Y[facility]Y ANKLE 6 FARZAD COMPLETE ASSOCIATE MINIMUM 3 S OF NOTH VIEWS RADEX [address] [facility] [address] ANKLE 6 [facility] COMPLETE JEREMI JEREMI MINIMUM 3 VIEWS RADIOLOGI 86059 [facility] C 6 [facility] EXAMINATI JEREMI JEREMI ON KNEE 3 VIEWS RADEX 10196 [facility] ANKLE 6 [facility] COMPLETE JEREMI JEREMI MINIMUM 3 VIEWS RADEX 80206 [facility] ANKLE 6 LTH LTH COMPLETE ORTHOPAED ORTHOPAED MINIMUM 3 IC CTR IC CTR VIEWS ANKLE L1902 [facility] ORTH 6 LTH LTH ANKLE ORTHOPAED ORTHOPAED GAUNT/SIM IC CTR IC CTR PREFAB OFF-THE-S HELF PHYS CERT G0180 [facility] MCR-COVR 6 LTH LTH MARLYN HLTH ORTHOPAED ORTHOPAED SRVC PER IC CTR IC CTR CERT PRD RADIOLOGI [address] EXAMINATI JEERMI JEREMI ON KNEE 3 VIEWS WALKER E0143 [facility] 6 STONE STONE WHEELED MEDICAL MEDICAL ADJUSTABL SVCS SVCS E/FIXED HEIGHT RADIOLOGI 21161 RADIOLOGY [facility] C SHAZIA EXAMINATI ASSOCIATE ON KNEE S OF NOTH 1/2 VIEWS ARTHRP 77085 [facility] KNE 6 LTH LTH CONDYLE&P ORTHOPAED ORTHOPAED LATU IC CTR IC CTR MEDIAL&[place] [address] [facility] 6 [facility] PATHOLOGY MED CTR GROSS&GONZÁLEZ ROSCOPIC EXAM ECG 79477 [facility] CHR ROUTINE 6 [place] ECG MED CTR W/LEAST 12 LDS I&R ONLY DRUG TST G0477 [facility] PRESUMP; 6 [facility] PBL BEING READ DC PHYSICIAN PHYSICIAN OPT OBV S S ONLY PRESSURIZ 34546 [facility] ED/NONPRE 6 [facility] SSURIZED MED CTR MED CTR INHALATIO IRON MINER BLASTING [facility] IRON MINER BLASTING ST N TREATMENT BLOOD 16267 [facility] TYPING 6 [facility] SEROLOGIC MED CTR MED CTR ABO IRON MINER BLASTING ST IRON MINER BLASTING ST ARTHROCEN 77413 [facility] TESIS 6 LTH LTH ASPIR&/IN ORTHOPAED ORTHOPAED J MAJOR IC CTR IC CTR JT/BURSA W/O US INJECTION J1040 [facility] 6 LTH LTH METHYLPRE ORTHOPAED ORTHOPAED DNISOLONE IC CTR IC CTR ACETATE 80 MG DUP-SCAN 85986 [facility] VEINS 6 [facility] MED CTR UNILATERA L/LIMITED STUDY ARTHROCEN 02395 [facility] TESIS 6 LTH LTH ASPIR&/IN ORTHOPAED ORTHOPAED J MAJOR IC CTR IC CTR JT/BURSA W/O US RADIOLOGI 50900 . . C 6 [facility] EXAMINATI JEREMI JEREMI ON KNEE 3 VIEWS INJECTION J1040 [facility] CO 6 LTH EMERGENCY METHYLPRE ORTHOPAED DNISOLONE IC CTR AMBULANCE ACETATE S 80 MG KNEE L1810 [facility] ORTHOSIS 6 LTH LTH ELASTIC ORTHOPAED ORTHOPAED JOINTS IC CTR IC CTR PREFAB CUSTOM FIT PT FALLS 1101F [facility] ASSESS 6 LTH LTH DOCD W/O ORTHOPAED ORTHOPAED FALL/INJU IC CTR IC CTR RY PAST YEAR INFLUENZA G8483 [facility] 6 LTH LTH IMMUNIZAT ORTHOPAED ORTHOPAED ION NOT IC CTR IC CTR ADMIN RSN DOC CLIN PATIENT G8784 [facility] NOT 6 LTH LTH ELIGBL ORTHOPAED ORTHOPAED E.G. PT IC CTR IC CTR REFUSES URGENT/EM SIT PT SCRND 4004F [facility] TOBACCO 6 LTH LTH USE RCVD ORTHOPAED ORTHOPAED TOBACCO IC CTR IC CTR CESSATION TALK SCREENING 3014F [facility] 6 LTH LTH MAMMOGRAP ORTHOPAED ORTHOPAED HY IC CTR IC CTR RESULTS DOC&REV BMI DOC G8417 [facility] ABOVE 6 LTH LTH NORMAL ORTHOPAED ORTHOPAED IQRA & IC CTR IC CTR F/U PLAN DOCUMENTE D PNEUMOCOC 4040F [facility] MORRIS 6 LTH LTH VACCINE ORTHOPAED ORTHOPAED ADMIN IC CTR IC CTR RCVD PRIOR PATIENT G8399 [facility] W/DOC 6 LTH LTH RESULTS ORTHOPAED ORTHOPAED CENTRL IC CTR IC CTR DXA EVER BEING PERF ELDER G8734 [facility] MALTREATM 6 LTH LTH ENT ORTHOPAED ORTHOPAED SCREENING IC CTR IC CTR DOC NEG NO F/U REQ DUP-SCAN 71457 ST [facility] BAR XTR VEINS 6 [facility] MED CTR UNILATERA L/LIMITED STUDY URNLS DIP [address] 5 [facility] STICK/TAB MED CTR MED CTR LET RGNT IRON MINER BLASTING ST IRON MINER BLASTING ST AUTO W/O MICROSCOP Y BLOOD [address] TYPING 5 [facility] SEROLOGIC MED CTR MED CTR RH (D) IRON MIN[facility] BLAST[facility] CUL [address] PRSMPTV 5 [facility] PTHGNC MED CTR MED CTR ORGANISM IRON MINER BLASTING ST IRON MINER BLASTING ST SCRN W/COLONY ESTIMJ THROMBOPL [address] [facility] ASTIN 5 [facility] TIME MED CTR PARTIAL IRON MINER BLASTING ST PLASMA/WH OLE BLOOD ECG [address] ST MCDANNOLD ROUTINE [address] [place] [address] ECG MED CTR W/LEAST 12 LDS I&R ONLY PROTHROMB [address] IN TIME 5 [facility] SANTINO MED CTR MED CTR IRON MINER BLASTING ST IRON [place] [address] ROUTINE 5 [facility] SANT[facility] ECG MED CTR MED CTR W/LEAST IRON MINER BLASTING ST IRON MINER BLASTING ST 12 LDS TRCG ONLY W/O I&R BLOOD [address] TYPING 5 [facility] SEROLOGIC MED CTR MED CTR ABO IRON MINER BLASTING [facility] IRON MINER BLASTING ST ANTIBODY 73365 [facility] SCREEN 5 [facility] DE RBC EACH MED CTR MED CTR SERUM IRON MINER BLASTING ST IRON MINER BLASTING ST TECHNIQUE BLOOD 48106 [facility] COUNT 5 [place] DE COMPLETE MED CTR MED CTR AUTO&AUTO IRON MINER BLASTING ST IRON MINER BLASTING ST DIFRNTL WBC BMI DOC G8419 [facility] OUT NML 5 S[place] DE IQRA NO F/U PLN PHYSICIAN PHYSICIAN DOC NO S S RSN GVN INFLUENZA G8482 [facility] 5 [facility] BAER IMMUNIZAT ION PHYSICIAN ADMIN/PRE S VIOUSLY RECEIVED DEPRESSIO G8432 [facility] N SCR NOT 5 S[place] DE DOCUMENTE PHYSICIAN PHYSICIAN D REASON S S NOT GIVEN RADIOLOGI 18696 [facility] 5 S[facility] DE EXAMINATI JEREMI JEREMI ON KNEE 3 [place] ANY [address] [facility]. JT LOWER 5 [facility] DE EXTREM JEREMI JEREMI W/O CONTRAST MATRL INJECTION J1040 [facility] GRE 5 [place] METHYLPRE DNISOLONE PHYSICIAN ACETATE S 80 MG THERAPEUT 34488 [facility] IC 5 S[facility] DE PROPHYLAC TIC/DX PHYSICIAN PHYSICIAN INJECTION S S SUBQ/IM INJECTION J1030 [facility] GRE 5 [place] METHYLPRE DNISOLONE PHYSICIAN ACETATE S 40 MG RADIOLOGI [address] [place] [address] [place] DE EXAMINATI JEREMI JEREMI ON KNEE 3 VIEWS INJECTION J1040 [facility] ITALIROBERTEL 5 LTH OSIEL METHYLPRE ORTHOPAED DNISOLONE IC CTR ACETATE 80 MG ARTHROCEN 48188 [facility] ROS[facility] TESIS 5 LTH OSIEL ASPIR&/IN ORTHOPAED J MAJOR IC CTR JT/BURSA W/O US RADEX 12556 RUKHSANA QUINTEROS SPINE 5 KYRA QUINTEROS MD,PSC AL MINIMUM 4 VIEWS DUP-SCAN 57706 [facility]ARDGET[facility], XTR VEINS 5 [facility] JR JAM MED CTR UNILATERA L/LIMITED STUDY THER [address] PROPH/DX 5 [facility] WEAVERZABETH NJX IV MED CTR MED CTR PUSH IRON MINER BLASTING ST IRON MINER BLASTING ST SINGLE/1S T SBST/DRUG ECG [address] [facility] CHR ROUTINE 5 [facility] ECG MED CTR W/LEAST 12 LDS I&R ONLY RADIOLOGI [address] C 5 [facility] SANTINO EXAMINATI MED CTR MED CTR ON CHEST IRON MINER BLASTING ST IRON MINER BLASTING ST SINGLE VIEW FRONTAL RADIOLOGI 67439 PROSCAN YG C 5 RADIOLOGY TIFFANY EXAMINATI ON KNEE 1/2 VIEWS ECG 18836 RUKHSANA QUINTEROS ROUTINE 4 QUINTEROS, KYRA ECG ,PSC W/LEAST 12 LDS W/I&R THERAPEUT 82500 TAZ GRE TAZ GRE IC 4 PROPHYLAC TIC/DX INJECTION SUBQ/IM INJECTION J1885 TAZ GRE TAZ GRE 4 KETOROLAC TROMETHAM INE PER 15 MG INJECTION J1885 NEUROSCIE NEUROSCIE 4 NCE NCE KETOROLAC ASSOICATE ASSOICATE S OF N S OF N TROMETHAM INE PER 15 MG INJECTION J1030 TAZ GRE TAZ GRE 4 METHYLPRE DNISOLONE ACETATE 40 MG INJECTION J1040 TAZ GRE TAZ GRE 4 METHYLPRE DNISOLONE ACETATE 80 MG THERAPEUT 29559 TAZ GRE TAZ GRE IC 4 PROPHYLAC TIC/DX INJECTION SUBQ/IM ECG 28102 FROILAN MARTEEY ROUTINE 4 GONZÁLEZ GONZÁLEZ ECG W/LEAST 12 LDS I&R ONLY THERAPEUT 92730 TAZ GRE TAZ GRE IC 4 PROPHYLAC TIC/DX INJECTION SUBQ/IM INJECTION J1885 TAZ GRE TAZ GRE 4 KETOROLAC TROMETHAM INE PER 15 MG THERAPEUT 55169 TAZ GRE TAZ GRE IC 3 PROPHYLAC TIC/DX INJECTION SUBQ/IM THERAPEUT 82836 TAZ GRE TAZ GRE IC 3 PROPHYLAC TIC/DX INJECTION SUBQ/IM THERAPEUT 30573 TAZ GRE TAZ GRE IC 3 PROPHYLAC TIC/DX INJECTION SUBQ/IM INJECTION J1030 TAZ GRE TAZ GRE 3 METHYLPRE DNISOLONE ACETATE 40 MG INJECTION J1040 TAZ GRE TAZ GRE 3 METHYLPRE DNISOLONE ACETATE 80 MG RADIOLOGI 05993 ANA ROSA AVILES 3 EXAMINATI ON CHEST SINGLE VIEW FRONTAL MRI 42107 PAULINO PAULINO SPINAL 3 FARZAD FARZAD CANAL THORACIC W/O CONTRAST MATRL MRI 74708 PAULINO PAULINO SPINAL 3 FARZAD FARZAD CANAL CERVICAL W/O CONTRAST MATRL THERAPEUT 73034 TAZ GRE TAZ GRE IC 3 PROPHYLAC TIC/DX INJECTION SUBQ/IM INJECTION J1040 TAZ GRE DECLAN 3 DEN METHYLPRE DNISOLONE ACETATE 80 MG INJECTION J1030 TAZ GRE TAZ GRE 3 METHYLPRE DNISOLONE ACETATE 40 MG INJECTION J1885 TAZ GRE TAZ GRE 2 KETOROLAC TROMETHAM INE PER 15 MG THERAPEUT 22429 TAZ GRE TAZ GRE IC 2 PROPHYLAC TIC/DX INJECTION SUBQ/IM THERAPEUT 22050 UTTER MELCHOR UTTER MELCHOR IC 2 PROPHYLAC TIC/DX INJECTION SUBQ/IM INJECTION J1040 UTTER MELCHOR UTTER MELCHOR 2 METHYLPRE DNISOLONE ACETATE 80 MG INJECTION J1885 UTTER MELCHOR UTTER MELCHOR 2 KETOROLAC TROMETHAM INE PER 15 MG INJECTION J1885 TAZ GRE TAZ GRE 2 KETOROLAC TROMETHAM INE PER 15 MG THERAPEUT 09177 TAZ GRE TAZ GRE IC 2 PROPHYLAC TIC/DX INJECTION SUBQ/IM COLSC FLX 73654 [facility] W/RMVL 2 OF TUMOR DIGESTIVE DIGESTIVE POLYP DISORDER [place] [address] [facility] EISENSTEI SURG 2 N ROBIN PATHOLOGY GASTROENT EROLOGY A GROSS&GONZÁLEZ ROSCOPIC EXAM THERAPEUT 30761 TAZ GRE TAZ GRE IC 2 PROPHYLAC TIC/DX INJECTION SUBQ/IM INJECTION J1885 TAZ GRE TAZ GRE 2 KETOROLAC TROMETHAM INE PER [address] AR 2 [facility] ANTIBODIE S [facility] MEDICALCE NTER NTER COLLECTIO 05092 [facility] N VENOUS 2 [facility] BLOOD VENIPUNCT MEDICAL[place] [address] SURG [facility] MEDICALCE MEDICALCE GROSS&GONZÁLEZ NTER NTER ROSCOPIC EXAM BLOOD 55022 [facility] COUNT 2 [facility] COMPLETE AUTO&AUTO MEDICALCE MEDICALCE DIFRNTL NTER NTER WBC EGD 51651 [facility] TRANSORAL 2 BIOPSY DIGESTIVE DIGESTIVE SINGLE/MU DISORDER DISORDER LTIPLE DILATION 26335 [facility] ESOPH 2 UNGUIDED DIGESTIVE DIGESTIVE SOUND/[place] DISORDER DISORDER GIE 1/MULT PASS BLOOD 07688 [facility] COUNT 2 [facility] COMPLETE AUTO&AUTO MEDICALCE MEDICALCE DIFRNTL NTER NTER WBC LEVEL III [address] SURG 2 [facility] PATHOLOGY MEDICALCE MEDICALCE GROSS&GONZÁLEZ NTER NTER ROSCOPIC EXAM INJECTION J1100 [facility] DEXAMETHO SONE MEDICALCE MEDICALCE SODIUM NTER NTER PHOSPHATE [address] [facility] CIPROFLOX ACIN MEDICALCE MEDICALCE INTRAVENO NTER NTER US INFUS [address] IN[address] [facility] ACETAMINO PHEN 10 MEDICALCE MEDICALCE MG NTER NTER ANES [address] INTRAPERI 2 [facility] TONEAL UPPER MEDICALCE MEDICALCE ABDOMEN NTER NTER W/LAPS NOS INJECTION J2405 ST [facility] ONDANSETR ON HCL MEDICALCE MEDICALCE PER 1 MG NTER NTER INJECTION J0330 ST ST 2 [facility] SUCCINYLC HOLINE MEDICALCE MEDICALCE CHLORIDE NTER NTER UP TO [address] [facility] [facility] DIMENHYDR INATE UP MEDICALCE MEDICALCE TO 50 MG NTER NTER INJ J1720 ST ST HYDROCORT 2 [place] [facility] ISONE SODIUM MEDICALCE MEDICALCE SUCCINATE NTER NTER TO [address] IN[address] 2 [facility] [facility] MIDAZOLAM HCL PER MEDICALCE MEDICALCE 1 MG NTER NTER LAPAROSCO [address] PY SURG 2 [facility] [facility] CHOLECYST ECTOMY MEDICALCE MEDICALCE NTER NTER INJECTION J2270 ST ST MORPHINE 2 [facility] [facility] SULFATE UP TO 10 MEDICALCE MEDICALCE MG NTER NTER INJECTION J2710 ST ST 2 [place] [facility] NEOSTIGMI NE MEDICALCE MEDICALCE METHYLSUL NTER NTER FATE UP TO 0.[address] FENTANYL 2 [place] [facility] CITRATE 0.1 MG MEDICALCE MEDICALCE NTER NTER HEPATIC [address] FUNCTION 2 [facility] [facility] PANEL MEDICALCE MEDICALCE NTER NTER INJECTION J2270 ST ST MORPHINE 2 [place] SULFATE UP TO 10 MEDICALCE MEDICALCE MG NTER NTER INJECTION J2405 ST ST 2 [facility] [facility] ONDANSETR ON HCL MEDICALCE MEDICALCE PER 1 MG NTER NTER COLLECTIO [address] N VENOUS 2 [facility] BLOOD VENIPUN[place] [address] RADIOLOGY VIPUL ABDOMINAL 2 BRA REAL ASSOCIATE TIME S OF NOTH W/IMAGE LIMITED THERAPEUT [address] IC 2 [facility] PROPHYLAC TIC/DX MEDICALCE MEDICALCE INJECTION NTER NTER SUBQ/IM RADIOLOGI 14567 RADIOLOGY VIPUL C EXAM 2 BRA CHEST 2 ASSOCIATE VIEWS S OF NOTH FRONTAL&L ATERAL BLOOD [address] COUNT 2 [facility] COMPLETE AUTO&AUTO MEDICALCE MEDICALCE DIFRNTL NTER NTER WBC INJECTION J2805 [facility]. 2 [place] [facility] SINCALIDE JEREMI JEREMI 5 MICROGRAM S TECHNETIU A[address] [facility] M TC-99M 2 [facility] MEBROFENI JEREMI JEREMI N DX UP TO [address] J70[address] NORMAL 2 [facility] SALINE JEREMI JEREMI SOLUTION 250 CC HEPATOBIL 31839 RADIOLOGY MIRANDA SYST 2 EMERALD IMAG INC ASSOCIATE GB S OF NOTH W/PHARMA INTERVENJ ECG 08891 ZAPATA CHR ZAPATA CHR ROUTINE 2 ECG W/LEAST 12 LDS I&R ONLY INJECTION J1040 TAZ GRE TAZ GRE 2 METHYLPRE DNISOLONE ACETATE 80 MG THERAPEUT 86080 TAZ GRE TAZ GRE IC 2 PROPHYLAC TIC/DX INJECTION SUBQ/IM INJECTION J1030 TAZ GRE TAZ GRE 2 METHYLPRE DNISOLONE ACETATE [address] [place] [address] RADIOLOGY YOUNG VAN ABDOMEN & 2 PELVIS ASSOCIATE W/CONTRAS S OF NOTH T MATERIAL LOCM Q9967 ST ST 300-399 2 [facility] [facility] MG/ML IODINE MEDICALCE MEDICALCE CONCENTRA NTER NTER TION PER ML THERAPEUT 65671 TAZ GRE TAZ GRE IC 2 PROPHYLAC TIC/DX INJECTION SUBQ/IM ECG 21305 TAZ GRE TAZ GRE ROUTINE 2 ECG W/LEAST 12 LDS W/I&R THERAPEUT 16877 TAZ GRE TAZ GRE IC 2 PROPHYLAC TIC/DX INJECTION SUBQ/IM INJECTION J0696 TAZ GRE TAZ GRE 2 CEFTRIAXO NE SODIUM PER [address] SOFT 00636 RADIOLOGY DARDINGER TISSUE 1 SMITHA NECK ASSOCIATE W/CONTRAS S OF NOTH T MATERIAL CT THORAX 77969 TARA CHR TARA CHR 1 W/CONTRAS T MATERIAL LOCM Q9967 TARA CHR TARA CHR 300-399 1 MG/ML IODINE CONCENTRA TION PER ML RADIOLOGI [address] C EXAM 1 [facility] CHEST 2 JEREMI JEREMI VIEWS FRONTAL&L ATERAL RADEX 46347 [facility] HAND 2 1 ARTHRITIS ARTHRITIS VIEWS AND AND RHEUM RHEUM NONEMERGE A0100 [facility] 1 COMM[facility] TRANSPORT TRANSPORT ACTION ATION CO ATION; L TAXI NONEMERGE A0100 [facility] NCY 1 COMMUNITY TRANSPORT TRANSPORT ACTION ATION CO ATION; L TAXI BASIC [address] METABOLIC 1 [facility] PANEL CALCIUM MEDICALCE [place] [address] LIPASE 1 [facility]ICAL[facility]CE NTER NTER CYANOCOBA [address] SERINA 1 [facility] VITAMIN B-12 [place] [address] AMYLASE 1 [facility] [address] TRIIODOTH 1 [facility] Y[facility] T3 FREE MEDICALCE MEDICALCE NTER NTER BLOOD [address] COUNT 1 [facility] COM[facility]TE AUTOMATED MEDICALCE MEDICALCE NTER NTER THERAPEUT [address]268 ST TAZ GRE IC 1 SANTINO PROPHYLAC TIC/DX PHYSICIAN INJECTION S SUBQ/IM INJECTION J1885 ST ATZ GRE 1 SANTINO KETOROLAC PHYSICIAN TROMETHAM S INE PER 15 MG NONEMERGE A0100 [facility] NCY 1 COMMUNITY TRANSPORT TRANSPORT ACTION ATION CO ATION; L TAXI COLLECTIO [address] N VENOUS 1 [facility] BLOOD VENIPUNCT MEDICALCE MEDICALCE URE NTER NTER INJECTION J1030 PANCHO BROWNING 1 BYERS & BETTE METHYLPRE TEMMING DNISOLONE ACETATE 40 MG INJECTION J1020 NALLELY PANCHO 1 BYRES & BETTE METHYLPRE TEMMING DNISOLONE ACETATE 20 MG THERAPEUT 25335 FAMILY MARCK IC 1 CARE R H PROPHYLAC ASSOCIATE TIC/DX S INJECTION SUBQ/IM INJECTION J3420 FAMILY MARCK VIT B-12 1 CARE R H ASSOCIATE CYANOCOBA S SERINA TO 1000 MCG COMPUTER- 46513 ANNALEE [facility]ANTILLA AIDED 1 [facility] DETECTION INC INC SCREENING MAMMOGRAP HY SCREENING G0202 ANNALEE MANTILLA 1 [facility] MAMMOGRAP INC INC HY CARLOS INCL CAD WHEN PERFORMD BLOOD 72237 FAMILY FAMILY COUNT 1 CARE CARE COMPLETE ASSOCIATE ASSOCIATE AUTO&AUTO S S DIFRNTL WBC INJECTION J3420 FAMILY MARCK VIT B-12 1 CARE R H ASSOCIATE CYANOCOBA S SERINA TO 1000 MCG THERAPEUT 67491 FAMILY MARCK IC 1 CARE R H PROPHYLAC ASSOCIATE TIC/DX S INJECTION SUBQ/[place] [address] WOMEN'S SOOD TRANSVAGI 1 [facility] BLOOD 70544 ANNALEE MANTILLA COUNT 1 [facility] COMPLETE INC INC AUTO&AUTO DIFRNTL WBC RADIOLOGI 74049 ANNALEE MANTILLA C EXAM 1 [facility] CHEST 2 INC INC VIEWS FRONTAL&L ATERAL COMPREHEN 73020 ANNALEE MANTILLA SIVE 1 [facility] METABOLIC INC INC PANEL NATRIURET 33913 ANNALEE MANTILLA IC 1 [facility] PEPTIDE INC INC MRI BRAIN 22380 ANNALEE MANTILLA BRAIN 1 [facility] STEM W/O INC INC CONTRAST MATERIAL HEMOGLOBI 18428 ANNALEE MANTILLA N 1 [facility] GLYCOSYLA INC INC SHIRLENE A1C CYANOCOBA 76323 ANNALEE MANTILLA SERINA 1 [facility] VITAMIN INC INC B-12 [place] [address] ANNALEE MANTILLA FOLIC 1 [facility] ACID INC INC SERUM COMPREHEN 65028 ANNALEE MANTILLA SIVE 1 [facility] METABOLIC INC INC PANEL LIPID 64852 ANNALEE MANTILLA PANEL 1 [facility] INC INC COLLECTIO 92557 ANNALEE MANTILLA N VENOUS 1 [facility] [place] [address] ANNALEE MANTILLA THYROXINE 1 [facility] TOTAL INC INC BLOOD 15757 ANNALEE MANTILLA COUNT 1 [facility] COMPLETE INC INC AUTO&[place] [address] ANNALEE MANTILLA THYROID 1 [facility] STIMULATI INC INC NG HORMONE TSH PROTEIN 24133 ANNALEE MANTILLA ELECTROPH 1 [facility] ORETIC INC INC FRACTJ&[place] [address] ANNALEE MANTILLA THIAMINE- 1 [facility] VITAMIN INC INC B-1 NDL EMG 4 58222 ABEL ABEL XTR W/WO 1 TIFFANY TIFFANY RELATED PARASPINA L AREAS NRV CNDJ 72099 ABEL ABEL AMPLT&LAT 1 TIFFANY TIFFANY ENCY EA NRV MOTOR W/F-WAVE STD NRV CNDJ 08875 ABEL ABEL AMPLITUDE 1 TIFFANY TIFFANY & LATENCY EACH NERVE SENSORY BLOOD 89891 FAMILY FAMILY COUNT 1 CARE CARE COMPLETE ASSOCIATE ASSOCIATE AUTO&AUTO S S DIFRNTL WBC BLOOD 81574 [facility] COUNT 1 [facility] COMPLETE AUTOMATED SEDIMENTA 78947 [facility] TION RATE 1 [facility] RBC AUTOMATED COLLECTIO 89382 [facility] N VENOUS 1 [facility] BLOOD VENIPUNCT URE HEPATIC 42267 [facility] FUNCTION 1 [facility] PANEL MRI 50651 ANNALEE MANTILLA SPINAL 1 [facility] CANAL INC INC CERVICAL W/O CONTRAST MATRL RADEX 47086 [place] JIN SPINE 1 MEDICAL YOHANNES CERVICAL IMAGING 4 OR 5 ASS VIEWS RADEX 68001 ANNALEE MANTILLA SPINE 1 [facility] CERVICAL INC INC 6 OR MORE VIEWS ADMINISTR G0008 FAMILY RONALD J ATION OF 0 CARE INFLUENZA ASSOCIATE VIRUS S VACCINE IIV3 09135 FAMILY RONALD Foy VACCINE 0 CARE SPLIT ASSOCIATE VIRUS 0.5 S ML DOSAGE IM USE BLOOD 47554 [facility] COUNT 0 [facility] COMPLETE AUTOMATED HEPATIC 10321 [facility] FUNCTION 0 [facility] PANEL COLLECTIO 71869 [facility] N VENOUS 0 [facility] BLOOD VENIPUNCT URE SEDIMENTA 63756 [facility] TION RATE 0 [facility] RBC AUTOMATED INJECTION J1030 KUNATH, TEMMING 0 BYERS & BETTE METHYLPRE TEMMING DNISOLONE ACETATE 40 MG COLLECTIO 40539 [facility] N VENOUS 0 [facility] BLOOD VENIPUNCT URE HEPATIC 95973 [facility] FUNCTION 0 [facility] PANEL CREATININ 95201 [facility] E BLOOD 0 [facility] BLOOD 87214 [facility] COUNT 0 [facility] COMPLETE AUTOMATED INJECTION J1040 KUNATH, TEMMING 0 BYERS & BETTE METHYLPRE TEMMING DNISOLONE ACETATE 80 MG RADEX 97788 SEKOU ABDI, ABDOMEN 1 0 [facility] ANTEROPOS ASSOCIATE TERIOR S VIEW RADEX 00550 ANNALEE MANTILLA ABDOMEN 0 [facility] COMPL INC INC W/DCBTS&/ ERC VIEWS ECG 68163 LAILA GAMEZ ROUTINE 0 EMERGENCY YONNY ECG SERVICES O W/LEAST 12 [facility] ASSOCIATE I&R ONLY S CREATINE 14694 ANNALEE MANTILLA KINASE 0 [facility] [place] [address] ANNALEE MANTILLA TROPONIN 0 [facility] QUANTITAT INC INC BONITA BLOOD 56681 ANNALEE MANTILLA COUNT 0 [facility] COMPLETE INC INC AUTO&AUTO DIFRNTL WBC CREATINE 12581 ANNALEE MANTILLA KINASE MB 0 [facility] FRACTION INC INC ONLY RADIOLOGI 74911 SEKOU ABDI, C 0 MEDICAL [facility] EXAMINATI IMAGING ON CHEST ASSOCIATE SINGLE S VIEW FRONTAL BASIC 11646 ANNALEE MANTILLA METABOLIC 0 [facility] PANEL INC INC CALCIUM TOTAL HEPATIC 41474 [facility] FUNCTION 0 [facility] PANEL BLOOD 36515 [facility] COUNT 0 [facility] COMPLETE AUTO&[place] [address] [facility] UREA 0 [facility] NITROGEN QUANTITAT BONITA CREATININ 80489 [facility] E BLOOD 0 [facility] [place] [address] PANCHO BROWNING, GUIDANCE 0 BYERS LEONELA Higuera NEEDLE TEMMING PLACEMENT IMG S&I ARTHROCEN 92739 PANCHO BROWNING TESIS 0 BRAYAN Higuera ASPIR&/IN TEMMING J MAJOR JT/BURSA W/O US INJECTION J1040 PANCHO BROWNING, 0 BYERS & CHASE Higuera METHYLPRE [facility] DNISOLONE ACETATE 80 MG IAADIADOO 77146 FAMILY RAYAT, 0 YFN BASSETT STREPTOCO ASSOCIATE CCUS S GROUP A BLOOD 00007 FAMILY RAYAT, COUNT 0 YFN SCHULTZ ASSOCIATE AUTO&AUTO S DIFRNTL WBC THERAPEUT 97092 FAMILY ACHARYA, IC 0 YFN BASSETT PROPHYLAC ASSOCIATE TIC/DX S INJECTION SUBQ/IM INJECTION J1030 FAMILY RAYAT, 0 YFN BASSETT METHYLPRE ASSOCIATE DNISOLONE S ACETATE 40 MG BLOOD 05936 FAMILY DOMINGUEZEET, COUNT 9 YFN SCHULTZ ASSOCIATE AUTO&AUTO S DIFRNTL WBC 3D 69969 ANNALEE MANTILLA RENDERING 9 [facility] INC INC W/INTERP& POSTPROC DIFF WORK STATION CT THORAX 02015 ANNALEE MANTILLA 9 [facility] W/CONTRAS INC INC T MATERIAL CREATININ 09676 [facility] E BLOOD 9 [facility] INC COLLECTIO 93954 Law LAINEZ N VENOUS 9 CARE G BLOOD [place] [address] [facility] UREA 9 [facility] NITROGEN QUANTITAT BONITA IIV3 74825 Law CARDENAS VACCINE 9 CARE G SPLIT ASSOCIATE VIRUS 0.5 S ML DOSAGE IM USE ADMINISTR G0008 Law CARDENAS ATION OF 9 CARE G INFLUENZA ASSOCIATE VIRUS S VACCINE ECG 66285 ANNALEE ANNALEE ROUTINE 9 [facility] ECG INC INC W/LEAST 12 LDS TRCG ONLY W/O I&R RADIOLOGI 15990 ANNALEE ANNALEE C EXAM 9 [facility] CHEST 2 INC INC VIEWS FRONTAL&L ATERAL BLOOD 65343 FAMILY MARCK, COUNT 9 CARE Adrienne BASSETT COMPLETE ASSOCIATE AUTO&AUTO S DIFRNTL WBC COMPREHEN 05343 [facility] SIVE 9 [facility] METABOLIC PANEL INJECTION J1030 FAMILY RAYAT, 9 CARE Adrienne SERJIO METHYLPRE ASSOCIATE DNISOLONE S ACETATE 40 MG THERAPEUT 90367 [facility] MARCK, IC 9 CARE Adrienne SERJIO PROPHYLAC ASSOCIATE TIC/DX S INJECTION SUBQ/IM BLOOD 25751 [facility] COUNT 9 [facility] COMPLETE AUTOMATED CREATININ 07505 [facility] E BLOOD 9 [facility] HEPATIC 34023 [facility] FUNCTION 9 [facility] PANEL COLLECTIO 14795 [facility] N VENOUS 9 [facility] BLOOD VENIPUNCT URE INJECTION J1030 [facility] MARCK, 9 CARE Adrienne SERJIO METHYLPRE ASSOCIATE DNISOLONE S ACETATE 40 MG THERAPEUT 80922 [facility], IC 9 CARE R SERJIO PROPHYLAC ASSOCIATE TIC/DX S INJECTION SUBQ/IM RADEX 80912 PANCHO BROWNING, HAND 2 9 BYERS & CHASE E VIEWS TEMMING INJECTION J1040 PANCHO BROWNING, 9 BYERS & CHASE E METHYLPRE TEMMING DNISOLONE ACETATE 80 MG BLOOD 81885 [facility] COUNT 9 [facility] COMPLETE AUTOMATED INJECTION J1030 NALLELYPANCHO, 9 MODESTA & CHASE Higuera METHYLPRE PANCHO DNISOLONE ACETATE 40 MG COLLECTIO 64940 [facility] N VENOUS 9 [facility] BLOOD VENIPUNCT URE HEPATIC 01009 [facility] FUNCTION 9 [facility] PANEL INJECTION J1030 FAMILY ACHARYA, 8 CARE R SERJIO METHYLPRE ASSOCIATE DNISOLONE S ACETATE 40 MG DXA BONE 58946 PANCHO DELEON, DENSITY 8 CHASE Higuera STUDY 1/> SITES AXIAL SKEL WALKING L4386 RESPIRATO RESPIRATO BOOT 8 RY RY NON-PNEUM CONSULTAN CONSULTAN AT [employer] [place] [address] FAMILY PAK 8 CARE CARE METATARSA ASSOCIATE ASSOCIATE Lucie Everett FRACTURE W/O MANIPULAT ION BONE 83628 ANNALEE MANTILLA &/JOINT 8 [facility] IMAGING INC INC LIMITED AREA TECHNETIU A9503 ANNALEE Hector TC-99M 8 [facility] MEDRONATE INC INC DX UP TO 30 MCI AMBULANCE A0429 VIOLET VIOLET SERVICE 8 CO CO BLS AMBULANCE AMBULANCE EMERGENCY SERVICE SERVICE TRANSPORT GROUND A0425 VIOLET VIOLET MILEAGE 8 CO CO PER AMBULANCE AMBULANCE STATUTE SERVICE SERVICE MILE RADEX 27802 ANNALEE MANTILLA ANKLE 8 [facility] COMPLETE INC INC MINIMUM 3 VIEWS RADEX 61328 [facility] FOOT 8 MEDICAL MEDICAL COMPLETE IMAGING IMAGING MINIMUM 3 ASSOCIATE ASSOCIATE VIEWS S S AMBULANCE A0429 VIOLET VIOLET SERVICE 8 CO CO BLS AMBULANCE AMBULANCE EMERGENCY SERVICE SERVICE TRANSPORT GROUND A0425 VIOLET VIOLET MILEAGE 8 CO CO PER AMBULANCE AMBULANCE STATUTE SERVICE SERVICE MILE Encounters Encounter Start End Date Code Location Performer Type Date OFFICE 12554 [facility] 7 7 SANTINO T VISIT 25 PHYSICIAN [facility] ANNALEE - 6 6 [facility] OUTPATIEN INC T OFFICE 36063 ANNALEE OUTPATIEN 6 6 [facility] T VISIT INC [address] ACCESS 6 6 [facility] [employer] [facility]ER[facility] ACCESS 6 6 [facility] ACCESS 6 6 [facility] 6 6 [facility] JEREMI OFFICE 49625 ROBBY RAMIREZ CRI OUTPATIEN 6 6 [facility] [address] - 6 6 [facility] - 6 6 [facility] OUTPATIEN [facility] ACCESS 6 6 [facility] CR[facility]ICAL [facility] ACCESS 6 6 [facility] JEREMI OFFICE 88436 [facility] OUTPATIEN 6 6 [facility] T VISIT ORTHOPAED ORTHOPAED 15 IC CTR IC CTR MINUTES CRITICAL ST. ACCESS 6 6 [facility] JEREMI OFFICE [address] ST FERNANDEZ OUTPATIEN 6 6 SANTINO KEYUR T VISIT 15 PHYSICIAN MINUTES [facility] ST - 5 5 [facility] OUTPATIEN MED CTR T [facility] OFFICE [address] FERNANDEZ OUTPATIEN 5 5 [facility] KEYUR T VISIT 25 PHYSICIAN MINUTES S OFFICE 97474 [facility] ZEYADEL OUTPATIEN 5 5 LTH OSIEL T VISIT ORTHOPAED 15 IC [address] [facility] ACCESS 5 5 [facility] ACCESS 5 5 [facility] JEREMI OFFICE 88313 [facility] ZEYADEL OUTPATIEN 5 5 LT OSIEL T NEW 30 ORTHOPAED MINUTES IC CTR [facility]ITICAL [facility] ACCESS 5 [address] [facility] [address] - 5 5 [facility] OUTPATIEN MED CTR T [facility] [address]ERGENCY [address] 5 5 [facility] DEPARTMEN MED CTR T VISIT [facility] ST HIGH/URGE NT SEVERITY CRITICAL ST. ACCESS 3 3 [facility] OFFICE 91721 TAZ GRE TAZ GRE OUTPATIEN 3 3 T VISIT [address] - OTHER 2 2 [facility] - OTHER 2 2 [facility] - 2 2 [facility] OUTPATIEN T [facility] [address] [facility] 2 2 [facility] T VISIT MEDICALCE HIGH/URGE NTER NT SEVERITY [facility]ITICAL [facility] ACCESS 2 [address] [facility] - 2 2 [facility] OUTPATIEN T [facility] OFFICE 82161 BEERS HALLIE BEERS HALLIE OUTPATIEN 2 2 T VISIT [address] ACCESS 1 1 [facility] OFFICE 67677 [facility] OUTPATIEN 1 1 ARTHRITIS BETTE T VISIT AND [address] - OTHER 1 1 [facility] OFFICE [address] ST TAZ GRE OUTPATIEN 1 1 SANTINO T VISIT 25 PHYSICIAN MINUTES S OFFICE [address] ST TAZ GRE OUTPATIEN 1 1 [facility] Amaya NEW 45 MED CTR MINUT[address] [facility] ST - OTHER 1 1 S[facility]INO GREWALCE NTER OFFICE 32131 [facility] DUE THO OUTPATIEN 1 1 [facility] T NEW 30 ORTHOPAE MINUTES OFFICE 30614 NALLELY, PANCHO OUTPATIEN 1 1 BYERS & BETTE T VISIT 5 TEMMING MINUTES OFFICE 66898 FAMILY MARCK OUTPATIEN 1 1 CARE R H T VISIT ASSOCIATE 15 S MINUTES HOSPITAL ANNALEE - 1 1 [facility] OUTPATIEN INC T OFFICE 43822 FAMILY MARCK OUTPATIEN 1 1 CARE R H T VISIT ASSOCIATE 15 S MINUTES OFFICE 98181 FAMILY MARCK OUTPATIEN 1 1 CARE R H T VISIT ASSOCIATE 15 S MINUTES HOSPITAL ANNALEE - 1 1 [facility] OUTPATIEN INC T EMERGENCY 43398 ANNALEE 1 1 [facility] DEPARTMEN INC T VISIT LOW/MODER SEVERITY EMERGENCY 07329 LAILA GAMEZ BAB 1 1 EMERGENCY DEPARTMEN SERVICES T VISIT HIGH/URGE NT SEVERITY HOSPITAL ANNALEE - 1 1 [facility] OUTPATIEN INC T OFFICE 03428 FAMILY MARCK OUTPATIEN 1 1 CARE R H T VISIT ASSOCIATE 25 S MINUTES HOSPITAL ANNALEE - 1 1 [facility] OUTPATIEN INC T OFFICE 22386 ABEL ABEL OUTPATIEN 1 1 TIFFANY ALLEN T NEW 45 MINUTES OFFICE 40854 Kandice IRWIN OUTPATIEN 1 1 DC Amaya NEW 45 MD PSC MINUTES OFFICE 13855 FAMILY MARCK OUTPATIEN 1 1 CARE R H T VISIT ASSOCIATE 25 S MINUTES OFFICE 59878 FAMILY MARCK OUTPATIEN 1 1 CARE R H T VISIT ASSOCIATE 15 S MINUTES OFFICE 20680 FAMILY RONALD J OUTPATIEN 1 1 CARE T VISIT ASSOCIATE 15 S MINUTES OFFICE 02243 PANCHO BROWNING OUTPATIEN 1 1 [facility]ERS & BETTE T VISIT TEMMING 25 MINUTES OFFICE 97613 FAMILY RONALD Foy OUTPATIEN 1 1 CARE T VISIT ASSOCIATE 25 S MINUTES OFFICE 01378 FAMILY GORDO OUTPATIEN 1 1 CARE TERRA T VISIT ASSOCIATE 15 S MINUTES HOSPITAL ANNALEE - 1 1 [facility] OUTPATIEN INC T OFFICE 30645 FAMILY RONALD Foy OUTPATIEN 1 1 CARE T VISIT ASSOCIATE 15 S MINUTES HOSPITAL ANNALEE - 1 1 [facility] OUTPATIEN INC T OFFICE 21286 FAMILY MARCK OUTPATIEN 1 1 CARE R H T VISIT ASSOCIATE 15 S MINUTES OFFICE 84245 FAMILY MARCK OUTPATIEN 1 1 CARE R H T VISIT ASSOCIATE 15 S MINUTES OFFICE 88253 NALLELY, PANCHO OUTPATIEN 0 0 [facility]ERS & BETTE T VISIT TEMMING 25 MINUTES OFFICE 41390 GIBRANATH, RONMING OUTPATIEN 0 0 BYERS & BETTE T VISIT TEMMING 25 MINUTES EMERGENCY 23412 LAILA GAMEZ, DEPT 0 0 EMERGENCY YONNY VISIT SERVICES O HIGH SEVERITY& ASSOCIATE THREAT S FUNCJ EMERGENCY 04704 ANNALEE 0 0 [facility] DEPARTMEN INC T VISIT MODERATE SEVERITY [facility]OSPITAL [facility]NALEE - 0 0 [facility] OUTPATIEN INC T OFFICE 05470 NALLELY, PANCHO, OUTPATIEN 0 0 BYERS & CHASE E T VISIT TEMMING 25 MINUTES OFFICE 19844 FAMILY MARCK, OUTPATIEN 0 0 CARE R SERJIO T VISIT ASSOCIATE 15 S MINUTES OFFICE 40776 FAMILY MARCK, OUTPATIEN 0 0 CARE R SERJIO T VISIT ASSOCIATE 15 S MINUTES OFFICE 40712 FAMILY MARCK, OUTPATIEN 9 9 CARE R SERJIO T VISIT ASSOCIATE 15 S MINUTES HOSPITAL ANNALEE - 9 9 [facility] OUTPATIEN INC T OFFICE 75492 FAMILY CARDENAS J OUTPATIEN 9 9 CARE G T VISIT ASSOCIATE 15 S MINUTES OFFICE 01033 FAMILY CARDENAS Law OUTPATIEN 9 9 CARE G T VISIT ASSOCIATE 15 S MINUTES HOSPITAL ANNALEE - 9 9 [facility] OUTPATIEN INC T OFFICE 55977 FAMILY MARCK, OUTPATIEN 9 9 CARE R SERJIO T VISIT ASSOCIATE 15 S MINUTES OFFICE 12557 NALLELY TEMMING, OUTPATIEN 9 9 BYERS & CHASE E T VISIT TEMM[place] 25 MINUTES OFFICE 00386 FAMILY MARCK, OUTPATIEN 9 9 CARE R SERJIO T VISIT ASSOCIATE 15 S MINUTES OFFICE 59624 RON BROWNINGMING, OUTPATIEN 9 9 BYERS & CHASE E T VISIT TEMMING 25 MINUTES OFFICE 84319 FAMILY MARCK, OUTPATIEN 9 9 CARE R SERJIO T VISIT ASSOCIATE 15 S MINUTES OFFICE 14049 FAMILY MARCK, OUTPATIEN 9 9 CARE R SERJIO T VISIT ASSOCIATE 15 S MINUTES OFFICE 33018 NALLELY TEMMING, OUTPATIEN 9 9 BYERS & CHASE E T VISIT TEMMING 25 MINUTES OFFICE 79822 FAMILY MARCK, OUTPATIEN 8 8 CARE R SERJIO T VISIT ASSOCIATE 15 S MINUTES OFFICE 19390 FAMILY MARCK, OUTPATIEN 8 8 CARE R SERJIO T VISIT ASSOCIATE 15 S MINUTES OFFICE 15268 PANCHO BROWNING, OUTPATIEN 8 8 BRAYAN Higuera T VISIT [facility] 25 MINUTES OFFICE 66554 FAMILY MARCK, OUTPATIEN 8 8 CARE R SERJIO T VISIT ASSOCIATE 15 S MINUTES OFFICE 19612 PANCHO DELEON OUTPATIEN 8 8 CHASE Higuera T VISIT 25 MINUTES HOSPITAL ANNALEE - 8 8 [facility] OUTPATIEN INC T OFFICE 89142 FAMILY FAMILY OUTPATIEN 8 8 CARE CARE T VISIT ASSOCIATE 15 S S MINUTES HOSPITAL ANNALEE - 8 8 [facility] OUTPATIEN INC T EMERGENCY 10225 ANNALEE 8 8 [facility] DEPARTMEN INC T VISIT MODERATE SEVERITY OFFICE 95767 FAMILY FAMILY OUTPATIEN 8 8 CARE CARE T VISIT ASSOCIATE ASSOCIATE 15 S S MINUTES
--- OUTSIDE RECORDS SUMMARY | 2017-01-12 15:35 | External Medical Summary Rpt ---
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 NTER NTER INJECTION J1030 PANCHO BROWNING 1 BYERS & BETTE METHYLPRE TEMMING DNISOLONE ACETATE 40 MG INJECTION J1020 NALLELY PANCHO 1 BYERS & BETTE METHYLPRE TEMMING DNISOLONE ACETATE 20 MG THERAPEUT 65944 FAMILY MARCK IC 1 CARE R H PROPHYLAC ASSOCIATE TIC/DX S INJECTION SUBQ/IM INJECTION J3420 FAMILY MARCK VIT B-12 1 CARE R H ASSOCIATE CYANOCOBA S SERINA TO 1000 MCG COMPUTER- 26409 ANNALEE MANTILLA AIDED 1 [facility] DETECTION INC INC SCREENING MAMMOGRAP HY SCREENING G0202 ANNALEE MANTILLA 1 [facility] MAMMOGRAP INC INC HY CARLOS INCL CAD WHEN PERFORMD BLOOD 68985 FAMILY FAMILY COUNT 1 CARE CARE COMPLETE ASSOCIATE ASSOCIATE AUTO&AUTO S S DIFRNTL WBC INJECTION J3420 FAMILY MARCK VIT B-12 1 CARE R H ASSOCIATE CYANOCOBA S SERINA TO 1000 MCG THERAPEUT 82286 FAMILY MARCK IC 1 CARE R H PROPHYLAC ASSOCIATE TIC/DX S INJECTION SUBQ/[place] [address] WOMEN'S SOOD TRANSVAGI 1 [facility] BLOOD 31385 ANNALEE MANTILLA COUNT 1 [facility] COMPLETE INC INC AUTO&AUTO DIFRNTL WBC RADIOLOGI 05808 ANNALEE MANTILLA C EXAM 1 [facility] CHEST 2 INC INC VIEWS FRONTAL&L ATERAL COMPREHEN 05617 ANNALEE MANTILLA SIVE 1 [facility] METABOLIC INC INC PANEL NATRIURET 59926 ANNALEE MANTILLA IC 1 [facility] PEPTIDE INC INC MRI BRAIN 28134 ANNALEE MANTILLA BRAIN 1 [facility] STEM W/O INC INC CONTRAST MATERIAL HEMOGLOBI 08357 ANNALEE MANTILLA N 1 [facility] GLYCOSYLA INC INC SHIRLENE A1C CYANOCOBA 57090 ANNALEE MANTILLA SERINA 1 [facility] VITAMIN INC INC B-12 [place] [address] ANNALEE MANTILLA FOLIC 1 [facility] ACID INC INC SERUM COMPREHEN 80389 ANNALEE MANTILLA SIVE 1 [facility] METABOLIC INC INC PANEL LIPID 79851 ANNALEE MANTILLA PANEL 1 [facility] INC INC COLLECTIO 67657 ANNALEE MANTILLA N VENOUS 1 [facility] [place] [address] ANNALEE MANTILLA THYROXINE 1 [facility] TOTAL INC INC BLOOD 78659 ANNALEE MANTILLA COUNT 1 [facility] COMPLETE INC INC AUTO&[place] [address] ANNALEE MANTILLA THYROID 1 [facility] STIMULATI INC INC NG HORMONE TSH PROTEIN 47538 ANNALEE MANTILLA ELECTROPH 1 [facility] ORETIC INC INC FRACTJ&[place] [address] ANNALEE MANTILLA THIAMINE- 1 [facility] VITAMIN INC INC B-1 NDL EMG 4 30357 ABEL ABEL XTR W/WO 1 TIFFANY TIFFANY RELATED PARASPINA L AREAS NRV CNDJ 57512 ABEL ABEL AMPLT&LAT 1 TIFFANY TIFFANY ENCY EA NRV MOTOR W/F-WAVE STD NRV CNDJ 02739 ABEL ABEL AMPLITUDE 1 TIFFANY TIFFANY & LATENCY EACH NERVE SENSORY BLOOD 23175 FAMILY FAMILY COUNT 1 CARE CARE COMPLETE ASSOCIATE ASSOCIATE AUTO&AUTO S S DIFRNTL WBC BLOOD 86281 [facility] COUNT 1 [facility] COMPLETE AUTOMATED SEDIMENTA 89762 [facility] TION RATE 1 [facility] RBC AUTOMATED COLLECTIO 61120 [facility] N VENOUS 1 [facility] BLOOD VENIPUNCT URE HEPATIC 86327 [facility] FUNCTION 1 [facility] PANEL MRI 69814 ANNALEE MANTILLA SPINAL 1 [facility] CANAL INC INC CERVICAL W/O CONTRAST MATRL RADEX 11695 [place] J[place] SPINE 1 [facility]ICAL Y[facility]ANNES CERVICAL IMAGING 4 OR 5 ASS VIEWS RADEX 63459 ANNALEE MANTILLA SPINE 1 [facility] CERVICAL INC INC 6 OR MORE VIEWS ADMINISTR G0008 FAMILY RONALD J ATION OF 0 CARE INFLUENZA ASSOCIATE VIRUS S VACCINE IIV3 84340 FAMILY RONALD Foy VACCINE 0 CARE SPLIT ASSOCIATE VIRUS 0.5 S ML DOSAGE IM USE BLOOD 95876 [facility] COUNT 0 [facility] COMPLETE AUTOMATED HEPATIC 34929 [facility] FUNCTION 0 [facility] PANEL COLLECTIO 66225 [facility] N VENOUS 0 [facility] BLOOD VENIPUNCT URE SEDIMENTA 31463 [facility] TION RATE 0 [facility] RBC AUTOMATED INJECTION J1030 KUNATH, TEMMING 0 BYERS & BETTE METHYLPRE TEMMING DNISOLONE ACETATE 40 MG COLLECTIO 94627 [facility] N VENOUS 0 [facility] BLOOD VENIPUNCT URE HEPATIC 28528 [facility] FUNCTION 0 [facility] PANEL CREATININ 51117 [facility] E BLOOD 0 [facility] BLOOD 46566 [facility] COUNT 0 [facility] COMPLETE AUTOMATED INJECTION J1040 KUNATH, TEMMING 0 BYERS & BETTE METHYLPRE TEMMING DNISOLONE ACETATE 80 MG RADEX 67856 SEKOU ABDI, ABDOMEN 1 0 [facility] ANTEROPOS ASSOCIATE TERIOR S VIEW RADEX 20469 ANNALEE MANTILLA ABDOMEN 0 [facility] COMPL INC INC W/DCBTS&/ ERC VIEWS ECG 47075 LAILA GAMEZ ROUTINE 0 EMERGENCY YONNY ECG SERVICES O W/LEAST 12 [facility] ASSOCIATE I&R ONLY S CREATINE 81227 ANNALEE MANTILLA KINASE 0 [facility] [place] [address] ANNALEE MANTILLA TROPONIN 0 [facility] QUANTITAT INC INC [place] BLOOD 38536 ANNALEE MANTILLA COUNT 0 [facility] COMPLETE INC INC AUTO&AUTO DIFRNTL WBC CREATINE 22153 ANNALEE MANTILLA KINASE MB 0 [facility] FRACTION INC INC ONLY RADIOLOGI 92487 SEKOU ABDI, C 0 MEDICAL [facility] EXAMINATI IMAGING ON CHEST ASSOCIATE SINGLE S VIEW FRONTAL BASIC 84157 ANNALEE MANTILLA METABOLIC 0 [facility] PANEL INC INC CALCIUM TOTAL HEPATIC 55162 [facility] FUNCTION 0 [facility] PANEL BLOOD 76665 [facility] COUNT 0 [facility] COMPLETE AUTO&[place] [address] [facility] UREA 0 [facility] NITROGEN QUANTITAT [place] CREATININ 97719 [facility] E BLOOD 0 [facility] [place] [address] PANCHO BROWNING, GUIDANCE 0 BYERS LEONELA Higuera NEEDLE TEMMING PLACEMENT IMG S&I ARTHROCEN 84020 PANCHO BROWNING TESIS 0 BRAYAN Higuera ASPIR&/IN TEMMING J MAJOR JT/BURSA W/O US INJECTION J1040 PANCHO BROWNING, 0 BYERS & CHASE Higuera METHYLPRE [facility] DNISOLONE ACETATE 80 MG IAADIADOO 97926 FAMILY RAYAT, 0 YFN BASSETT STREPTOCO ASSOCIATE CCUS S GROUP A BLOOD 44307 FAMILY RAYAT, COUNT 0 YFN SCHULTZ ASSOCIATE AUTO&AUTO S DIFRNTL WBC THERAPEUT 41256 FAMILY ACHARYA, IC 0 YFN BASSETT PROPHYLAC ASSOCIATE TIC/DX S INJECTION SUBQ/IM INJECTION J1030 FAMILY RAYAT, 0 YFN BASSETT METHYLPRE ASSOCIATE DNISOLONE S ACETATE 40 MG BLOOD 21421 FAMILY DOMINGUEZEET, COUNT 9 YFN SCHULTZ ASSOCIATE AUTO&AUTO S DIFRNTL WBC 3D 06538 ANNALEE MANTILLA RENDERING 9 [facility] INC INC W/INTERP& POSTPROC DIFF WORK STATION CT THORAX 74945 ANNALEE MANTILLA 9 [facility] W/CONTRAS INC INC T MATERIAL CREATININ 91259 [facility] E BLOOD 9 [facility] INC COLLECTIO 22727 Law LAINEZ N VENOUS 9 CARE G BLOOD [place] [address] [facility] UREA 9 [facility] NITROGEN QUANTITAT BONITA IIV3 02772 Law CARDENAS VACCINE 9 CARE G SPLIT ASSOCIATE VIRUS 0.5 S ML DOSAGE IM USE ADMINISTR G0008 Law CARDENAS ATION OF 9 CARE G INFLUENZA ASSOCIATE VIRUS S VACCINE ECG 25395 ANNALEE ANNALEE ROUTINE 9 [facility] ECG INC INC W/LEAST 12 LDS TRCG ONLY W/O I&R RADIOLOGI 28309 ANNALEE ANNALEE C EXAM 9 [facility] CHEST 2 INC INC VIEWS FRONTAL&L ATERAL BLOOD 92384 FAMILY MARCK, COUNT 9 CARE Adrienne BASSETT COMPLETE ASSOCIATE AUTO&AUTO S DIFRNTL WBC COMPREHEN 29124 [facility] SIVE 9 [facility] METABOLIC PANEL INJECTION J1030 FAMILY RAYAT, 9 CARE Adrienne SERJIO METHYLPRE ASSOCIATE DNISOLONE S ACETATE 40 MG THERAPEUT 96931 [facility] MARCK, IC 9 CARE Adrienne SERJIO PROPHYLAC ASSOCIATE TIC/DX S INJECTION SUBQ/IM BLOOD 83735 [facility] COUNT 9 [facility] COMPLETE AUTOMATED CREATININ 84308 [facility] E BLOOD 9 [facility] HEPATIC 31259 [facility] FUNCTION 9 [facility] PANEL COLLECTIO 56346 [facility] N VENOUS 9 [facility] BLOOD VENIPUNCT URE INJECTION J1030 [facility] MARCK, 9 CARE Adrienne SERJIO METHYLPRE ASSOCIATE DNISOLONE S ACETATE 40 MG THERAPEUT 73537 [facility], IC 9 CARE R SERJIO PROPHYLAC ASSOCIATE TIC/DX S INJECTION SUBQ/IM RADEX 79023 PANCHO BROWNING, HAND 2 9 BYERS & CHASE E VIEWS TEMMING INJECTION J1040 PANCHO BROWNING, 9 BYERS & CHASE E METHYLPRE TEMMING DNISOLONE ACETATE 80 MG BLOOD 23809 [facility] COUNT 9 [facility] COMPLETE AUTOMATED INJECTION J1030 NALLELYPANCHO, 9 MODESTA & CHASE Higuera METHYLPRE PANCHO DNISOLONE ACETATE 40 MG COLLECTIO 26659 [facility] N VENOUS 9 [facility] BLOOD VENIPUNCT URE HEPATIC 08148 [facility] FUNCTION 9 [facility] PANEL INJECTION J1030 FAMILY ACHARYA, 8 CARE R SERJIO METHYLPRE ASSOCIATE DNISOLONE S ACETATE 40 MG DXA BONE 57882 PANCHO DELEON, DENSITY 8 CHASE Higuera STUDY 1/> SITES AXIAL SKEL WALKING L4386 RESPIRATO RESPIRATO BOOT 8 RY RY NON-PNEUM CONSULTAN CONSULTAN AT [employer] [place] [address] FAMILY PAK 8 CARE CARE METATARSA ASSOCIATE ASSOCIATE Lucie Everett FRACTURE W/O MANIPULAT ION BONE 37298 ANNALEE MANTILLA &/JOINT 8 [facility] IMAGING INC INC LIMITED AREA TECHNETIU A9503 ANNALEE Hector TC-99M 8 [facility] MEDRONATE INC INC DX UP TO 30 MCI AMBULANCE A0429 VIOLET VIOLET SERVICE 8 CO CO BLS AMBULANCE AMBULANCE EMERGENCY SERVICE SERVICE TRANSPORT GROUND A0425 VIOLET VIOLET MILEAGE 8 CO CO PER AMBULANCE AMBULANCE STATUTE SERVICE SERVICE MILE RADEX 99687 ANNALEE MANTILLA ANKLE 8 [facility] COMPLETE INC INC MINIMUM 3 VIEWS RADEX 45161 [facility] FOOT 8 MEDICAL MEDICAL COMPLETE IMAGING IMAGING MINIMUM 3 ASSOCIATE ASSOCIATE VIEWS S S AMBULANCE A0429 VIOLET VIOLET SERVICE 8 CO CO BLS AMBULANCE AMBULANCE EMERGENCY SERVICE SERVICE TRANSPORT GROUND A0425 VIOLET VIOLET MILEAGE 8 CO CO PER AMBULANCE AMBULANCE STATUTE SERVICE SERVICE MILE Encounters Encounter Start End Date Code Location Performer Type Date OFFICE 74675 [facility] 7 7 SANTINO T VISIT 25 PHYSICIAN PENDING [facility]ALE TO [facility] ANNALEE - 6 6 [facility] OUTPATIEN INC T OFFICE 27406 ANNALEE OUTPATIEN 6 6 [facility] T VISIT INC [address] ACCESS 6 6 [facility] ACCESS 6 6 [facility] ACCESS 6 6 [facility] ACCESS 6 6 [facility] OFFICE 34565 ROBBY RAMIREZ CRI OUTPATIEN 6 6 [facility] [address] [facility] [address] - 6 6 [facility] OUTPATIEN MED CTR T [facility] - 6 6 [facility] OUTPATIEN MED CTR T [facility] ACCESS 6 6 [facility] CRITICAL ST. ACCESS 6 6 [facility] JER[facility] OFFICE 93372 [facility] OUTPATIEN 6 6 [facility] LTH T VISIT ORTHOPAED ORTHOPAED 15 IC CTR IC CTR MINUTES CRITICAL ST. ACCESS 6 6 [facility] JEREMI OFFICE 02230 ST FERNANDEZ OUTPATIEN 6 6 SANTINO KEYUR T VISIT 15 PHYSICIAN MINUTES [facility] ST - 5 5 [facility] OUTPATIEN MED CTR T [facility] OFFICE 01243 ST FERNANDEZ OUTPATIEN 5 5 S[facility] KEYUR T VISIT 25 PHYSICIAN MINUTES S OFFICE 10144 [facility] ZEYADEL OUTPATIEN 5 5 LTH OSIEL T VISIT ORTHOPAED 15 IC [address] [facility]ICAL [facility] ACCESS 5 5 [facility] CR[facility]ICAL ST. ACCESS 5 5 [facility] OFFICE 51088 [facility] ZEYADEL OUTPATIEN 5 5 LT OSIEL T NEW 30 ORTHOPAED MINUTES IC CTR CRITICAL ST. 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 ACCESS 3 3 [facility] OFFICE 62839 TAZ GRE TAZ GRE OUTPATIEN 3 3 T VISIT [address] - OTHER 2 2 [facility] - OTHER 2 2 [facility] - 2 2 [facility] - 2 2 [facility] OUTPATIEN T MEDICALCE [facility]ER[facility]ENC[facility] [address] [facility] HIGH/URGE NTER NT SEVERITY CRITICAL [facility] ACCESS 2 2 [facility] ST - 2 2 S[facility] OUTPATIEN T MEDICALCE [facility] OFFICE 45167 BEERS HALLIE BEERS HALLIE OUTPATIEN 2 2 T VISIT [address] ACCESS 1 1 [facility] OFFICE 54826 [facility] OUTPATIEN 1 1 ARTHRITIS BETTE T VISIT AND [address] - OTHER 1 1 [facility] OFFICE [address] ST TAZ GRE OUTPATIEN 1 1 SANTINO T VISIT 25 PHYSICIAN MINUTES S OFFICE 13580 ST TAZ GRE OUTPATIEN 1 1 S[facility] Amaya NEW 45 MED CTR MINUT[address] [facility] ST - OTHER 1 1 S[facility]INO GREWALCE NTER OFFICE 94877 [facility] DUE THO OUTPATIEN 1 1 [facility] T NEW 30 ORTHOPAE MINUTES OFFICE 17342 NALLELY, PANCHO OUTPATIEN 1 1 BYERS & BETTE T VISIT 5 TEMMING MINUTES OFFICE 93392 FAMILY MARCK OUTPATIEN 1 1 CARE R H T VISIT ASSOCIATE 15 S MINUTES HOSPITAL ANNALEE - 1 1 [facility] OUT[facility]IEN INC T OFFICE 75025 FAMILY MARCK OUTPATIEN 1 1 CARE R H T VISIT ASSOCIATE 15 S MINUTES OFFICE 03583 FAMILY MARCK OUTPATIEN 1 1 CARE R H T VISIT ASSOCIATE 15 S MINUTES HOSPITAL ANNALEE - 1 1 [facility] OUTPATIEN INC T EMERGENCY 50137 ANNALEE 1 1 [facility] DEPARTMEN INC T VISIT LOW/MODER SEVERITY EMERGENCY 93468 LAILA GAMEZ BAB 1 1 EMERGENCY DEPARTMEN SERVICES T VISIT HIGH/URGE NT SEVERITY HOSPITAL ANNALEE - 1 1 [facility] OUTPATIEN INC T OFFICE 23286 FAMILY MARCK OUTPATIEN 1 1 CARE R H T VISIT ASSOCIATE 25 S MINUTES HOSPITAL ANNALEE - 1 1 [facility] OUTPATIEN INC T OFFICE 40656 ABEL ABEL OUTPATIEN 1 1 TIFFANY ALLEN T NEW 45 MINUTES OFFICE 57181 Kandice IRWIN OUTPATIEN 1 1 DC Amaya NEW 45 MD PSC MINUTES OFFICE 96924 FAMILY MARCK OUTPATIEN 1 1 CARE R H T VISIT ASSOCIATE 25 S MINUTES OFFICE 13374 FAMILY MARCK OUTPATIEN 1 1 CARE R H T VISIT ASSOCIATE 15 S MINUTES OFFICE 26147 FAMILY RONALD J OUTPATIEN 1 1 CARE T VISIT ASSOCIATE 15 S MINUTES OFFICE 54953 PANCHO BROWNING OUTPATIEN 1 1 BYERS & BETTE T VISIT TEMMING 25 MINUTES OFFICE 76971 FAMILY RONALD Foy OUTPATIEN 1 1 CARE T VISIT ASSOCIATE 25 S MINUTES OFFICE 60152 FAMILY GORDO OUTPATIEN 1 1 CARE TERRA T VISIT ASSOCIATE 15 S MINUTES HOSPITAL ANNALEE - 1 1 [facility] OUTPATIEN INC T OFFICE 11530 FAMILY RONALD Foy OUTPATIEN 1 1 CARE T VISIT ASSOCIATE 15 S MINUTES HOSPITAL ANNALEE - 1 1 [facility] OUTPATIEN INC T OFFICE 12390 FAMILY MARCK OUTPATIEN 1 1 CARE R H T VISIT ASSOCIATE 15 S MINUTES OFFICE 47119 FAMILY MARCK OUTPATIEN 1 1 CARE R H T VISIT ASSOCIATE 15 S MINUTES OFFICE 33437 NALLELY, PANCHO OUTPATIEN 0 0 BYERS & BETTE T VISIT TEMMING 25 MINUTES OFFICE 21173 GIBRANATH, RONMING OUTPATIEN 0 0 BYERS & BETTE T VISIT TEMMING 25 MINUTES EMERGENCY 10356 LAILA GAMEZ, DEPT 0 0 EMERGENCY YONNY VISIT SERVICES O HIGH SEVERITY& ASSOCIATE THREAT S FUNCJ EMERGENCY 44885 ANNALEE 0 0 [facility] DEPARTMEN INC T VISIT MODERATE SEVERITY HOSPITAL ANNALEE - 0 0 [facility] OUTPATIEN INC T OFFICE 45924 NALLELY, PANCHO, OUTPATIEN 0 0 BYERS & CHASE E T VISIT TEMMING 25 MINUTES OFFICE 08256 FAMILY MARCK, OUTPATIEN 0 0 CARE R SERJIO T VISIT ASSOCIATE 15 S MINUTES OFFICE 42551 FAMILY MARCK, OUTPATIEN 0 0 CARE R SERJIO T VISIT ASSOCIATE 15 S MINUTES OFFICE 79397 FAMILY MARCK, OUTPATIEN 9 9 CARE R SERJIO T VISIT ASSOCIATE 15 S MINUTES HOSPITAL ANNALEE - 9 9 [facility] OUTPATIEN INC T OFFICE 00733 FAMILY CARDENAS J OUTPATIEN 9 9 CARE G T VISIT ASSOCIATE 15 S MINUTES OFFICE 67898 FAMILY CARDENAS Law OUTPATIEN 9 9 CARE G T VISIT ASSOCIATE 15 S MINUTES HOSPITAL ANNALEE - 9 9 [facility] OUTPATIEN INC T OFFICE 11969 FAMILY MARCK, OUTPATIEN 9 9 CARE R SERJIO T VISIT ASSOCIATE 15 S MINUTES OFFICE 55851 NALLELY TEMMING, OUTPATIEN 9 9 BYERS & CHASE E T VISIT TEMMING 25 MINUTES OFFICE 46293 FAMILY MARCK, OUTPATIEN 9 9 CARE R SERJIO T VISIT ASSOCIATE 15 S MINUTES OFFICE 44562 RON BROWNINGMING, OUTPATIEN 9 9 BYERS & CHASE E T VISIT TEMMING 25 MINUTES OFFICE 52162 FAMILY MARCK, OUTPATIEN 9 9 CARE R SERJIO T VISIT ASSOCIATE 15 S MINUTES OFFICE 44497 FAMILY MARCK, OUTPATIEN 9 9 CARE R SERJIO T VISIT ASSOCIATE 15 S MINUTES OFFICE 29654 NALLELY TEMMING, OUTPATIEN 9 9 BYERS & CHASE E T VISIT TEMMING 25 MINUTES OFFICE 11961 FAMILY MARCK, OUTPATIEN 8 8 CARE R SERJIO T VISIT ASSOCIATE 15 S MINUTES OFFICE 54592 FAMILY MARCK, OUTPATIEN 8 8 CARE R SERJIO T VISIT ASSOCIATE 15 S MINUTES OFFICE 64475 PANCHO BROWNING, OUTPATIEN 8 8 BRAYAN Higuera T VISIT [facility] 25 MINUTES OFFICE 10351 FAMILY MARCK, OUTPATIEN 8 8 CARE R SERJIO T VISIT ASSOCIATE 15 S MINUTES OFFICE 56189 PANCHO DELEON OUTPATIEN 8 8 CHASE Higuera T VISIT 25 MINUTES HOSPITAL ANNALEE - 8 8 [facility] OUT[facility]IEN INC T OFFICE 93342 FAMILY FAMILY OUTPATIEN 8 8 CARE CARE T VISIT ASSOCIATE 15 S S MINUTES HOSPITAL ANNALEE - 8 8 [facility] OUTPATIEN INC T EMERGENCY 81213 ANNALEE 8 8 [facility] DEPARTMEN INC T VISIT MODERATE SEVERITY OFFICE 84580 FAMILY FAMILY OUTPATIEN 8 8 CARE CARE T VISIT ASSOCIATE ASSOCIATE 15 S S MINUTES
[2017-01-12 15:42] LABS: HEMOGLOBIN 12.6 g/dL (12.2-16.2); LYMPH # 1.6 K/mm3 (0.7-4.5); LYMPH % 26.6 % (10-50.0)
--- OUTSIDE RECORDS SUMMARY | 2017-01-12 15:45 | External Medical Summary Rpt ---
Author Author , Organization [employer] Address Unknown Phone Unavailable Care Team Providers Care Forensic Locksmith Name Role Phone ROBBY ARVIZU MD, PSC, Unavailable Unavailable ROBBY ARVIZU MD, PSC RUKHSANA QUINTEROS, Unavailable Unavailable [facility] BALLARD WRIGHT, MD,PSC BARDGETMonique JR JAM, Unavailable Unavailable BARDGETT JR JAM BEERS HALLIE, BEERS HALLIE Unavailable [...] Unavailable Unavailable [facility], [facility] JIN YOHANNES, Unavailable Unavailable JIN YOHANNES JIN, [...] Unavailable HOBLITZEL OSIEL, Unavailable Unavailable HOBLITZEL OSIEL [facility]available [facility], [facility] TAZ GRE, TAZ GRE Unavailable Unavailable TAZ GRE, TAZ GRE Unavailable Unavailable [facility], Unavailable Unavailable [facility] JAMES CRI, JAMES CRI Unavailable Unavailable LUBBERS ROBIN, LUBBERS Unavailable Unavailable ROBIN ELINOLD TER, Unavailable Unavailable ELINOLD TER ANGIE URBAN MD, Unavailable Unavailable ELENA RICHARDSON MD, JR Unavailable Unavailable F, ZAIRA HERNANDEZ, ELENA F AIDAN ZUNIGA P, Unavailable Unavailable AIDAN ZUNIGA P YURY FARZAD, YURY Unavailable Unavailable FARZAD MULBERRY TERRA, Unavailable Unavailable MULBERRY TERRA [facility] Unavailable [facility]available [facility], [facility] MARCK R H, Unavailable Unavailable MRACK R H MARCK, R SERJIO, Unavailable Unavailable MARCK, R SERJIO ABEL TIFFANY, Unavailable Unavailable ABEL TIFFANY ABEL TIFFANY, Unavailable Unavailable ABEL TIFFANY [facility] Unavailable [facility], [facility], Unavailable Unavailable [facility] Unavailable Unavailable [facility], [facility] YG TIFFANY, YG Unavailable Unavailable [facility] Unavailable [facility] KENNETH HEA, Unavailable Unavailable KENNETH HEA TARA CHR, TARA CHR Unavailable Unavailable TARA CHR, TARA CHR Unavailable Unavailable SCHULSTAD VALERIE, Unavailable Unavailable SCHULSTAD VALERIE ZAPATA CHR, ZAPATA CHR Unavailable Unavailable SOKAN BAB, SOKAN BAB Unavailable Unavailable SOKAN, YONNY O, Unavailable Unavailable SOKAN, YONNY O [facility], Unavailable Unavailable [facility] Unavailable Unavailable CREPE MACHINE OPERATOR ST, [facility] CREPE MACHINE OPERATOR [facility] Unavailable Unavailable [facility], [facility] Unavailable Unavailable PH[facility]ICIANS, [facility] JEREMI, Unavailable Unavailable . [place] JEREMI PANCHO JUDGE Unavailable Unavailable CHASE MEANS, [...] Unavailable UTTER MELCHOR, UTTER MELCHOR Unavailable Unavailable [facility] Unavailable Unavailable OF [facility], [facility] ELIF ALDAIR RAE, ALDAIR Unavailable Unavailable ANA ROSA LEES Unavailable Unavailable Purpose Continuity of Care Document [...] [facility] TIS OF KNEE [id number] RA WITHOUT 05-21-2016 [facility] RHEUMATOID H FACTOR [facility] RIGHT KNEE CTR [id number] PAIN IN 05-21-2016 ST. RIGHT KNEE [facility] JEREMI [id number] PAIN IN 05-21-2016 ST. LEFT ANKLE [facility] JER[facility]I M7121 SYNOVIAL 05-21-2016 [facility] CYST H POPLITEAL ORTHOPAEDIC [facility] CTR RIGHT KNEE [id number] POSTERIOR 05-21-2016 ST. TIBIAL [facility] TENDINITIS JEREMI LEFT LEG R600 LOCALIZED 05-21-2016 [facility] Z471 AFTERCARE 05-21-2016 [facility]LLOW[facility] JOINT 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 PRIMARY [facility] OSTEOARTHRI JEREMI TIS LEFT KNEE M1990 UNSPECIFIED 04-30-2016 [facility]. [facility] OSTEOARTHRI JEREMI TIS UNSPECIFIED SITE M7752 OTHER 04-30-2016 ST. ENTHESOPATH [facility] Y OF LEFT JEREMI FOOT [id number] STRESS 04-30-2016 ST. FRACTURE LT [facility] TIBIA JEREMI INITIAL ENC FRACTURE Z9889 OTHER 04-30-2016 ST. SPECIFIED [facility] POSTPROCEDU JEREMI [facility] STATES M1711 UNILATERAL 02-29-2016 [facility] PRIMARY H OSTEOARTHRI ORTHOPAEDIC TIS RIGHT CTR KNEE E0590 THYROTOXICO 02-18-2016 ST SIS UNS W/O [facility] THYROTOXIC MED CTR CRISIS/STOR M I10 ESSENTIAL 02-18-2016 ST PRIMARY [facility] HYPERTENSIO MED CTR N Y26081 ENCOUNTER 02-15-2016 ST FOR OTHER [facility] PREPROCEDUR MED CTR AL EXAMINATION M179 OSTEOARTHRI 02-04-2016 ROBBY BUX, TIS OF KNEE MD, PSC UNSPECIFIED R892 ABN LEVL 01-23-2016 ST OTH RX MEDS [facility] BIO SUBS PHYSICIANS OTH ORGAN SYS TISS T148 OTHER 01-23-2016 ST INJURY OF [facility] UNSPECIFIED PHYSICIANS BODY REGION Z6836 BODY MASS 01-23-2016 ST INDEX BMI [facility] 36.0-36.9 PHYSICIANS ADULT Z538 PROC & 01-14-2016 ST TREATMENT [facility] NOT CARRIED MED CTR CREPE MACHINE OPERATOR OUT FOR ST OTH REASONS Z7901 LONG-TERM 01-10-2016 ST CURRENT USE [facility] OF MED CTR CREPE MACHINE OPERATOR ANTICOAGULA ST NTS M172 BILATERAL 01-09-2016 [facility] POST-TRAUMA H TIC ORTHOPAEDIC OSTEOARTHRI CTR TIS OF KNEE K54284 PAIN IN 12-31-2015 ST. LEFT LOWER [facility] LEG JEREMI R609 EDEMA 12-31-2015 ST. UNSPECIFIED [facility] JEREMI V71882 PAIN IN 12-12-2015 ST. LEFT KNEE [facility] JEREMI M797 FIBROMYALGI 12-12-2015 [facility] A H ORTHOPAEDIC CTR Q44216 PAIN IN 10-31-2015 ST. RIGHT LEG [facility] JEREMI C73301 PAIN IN 10-31-2015 ST. RIGHT LOWER [facility] LEG JEREMI N3946 MIXED 08-13-2015 ST INCONTINENC [facility] E PHYSICIANS Z1231 ENCOUNTER 08-13-2015 ST SCREENING [facility] MAMMO MALIG PHYSICIANS NEOPLASM BREAST D689 COAGULATION 08-09-2015 ST DEFECT [facility] UNSPECIFIED MED CTR CREPE MACHINE OPERATOR ST E785 HYPERLIPIDE 08-07-2015 ST MAXINE [facility] UNSPECIFIED PHYSICIANS M542 CERVICALGIA 08-07-2015 ST [facility] PHYSICIANS N951 MENOPAUSAL 08-07-2015 ST AND FEMALE [facility] CLIMACTERIC PHYSICIANS STATES R601 GENERALIZED 08-07-2015 ST EDEMA [facility] PHYSICIANS [id number] STRAIN UNS 05-21-2015 ST. MUSCLE [facility] TENDON LOW JEREMI LEG RT LEG INIT ENC 2662 OTHER 04-19-2015 ST B-COMPLEX [facility] DEFICIENCIE PHYSICIANS S 2689 UNSPECIFIED 04-19-2015 VITAMIN D [facility] DEFICIENCY PHYSICIANS 2724 OTHER AND 04-19-2015 ST UNSPECIFIED [facility] PHYSICIANS HYPERLIPIDE MAXINE 4019 UNSPECIFIED 04-19-2015 ESSENTIAL [facility] HYPERTENSIO PHYSICIANS N 5950 ACUTE 04-19-2015 CYSTITIS [facility] PHYSICIANS 7140 RHEUMATOID 04-19-2015 ARTHRITIS [facility] PH[facility]IC[facility]ANS 7291 UNSPECIFIED 04-19-2015 MYALGIA [facility] AND PHYSICIANS MYOSITIS 45464 URINARY 04-19-2015 FREQUENCY [facility] PHYSICIANS 71465 OTHER 03-07-2015 ST. CHRONIC [facility] PAIN JEREMI 05510 OSTEOARTHRO 03-07-2015 ST. SIS UNSPEC [facility] WHETHER JEREMI GEN/LOC LOWER LEG 16668 EFFUSION OF 03-07-2015 . LOWER LEG [facility] JOINT JEREMI 23480 PAIN IN 03-07-2015 . JOINT, [facility] LOWER LEG JEREMI 7242 LUMBAGO 02-26-2015 RUKHSANA QUINTEROS MD,PSC 44634 SWELLING OF 02-16-2015 ST LIMB [facility] MED CTR 2720 PURE 01-04-2015 ST HYPERCHOLES [facility] TEROLEMIA MED CTR [place] [address]8439 GENERALIZED 01-04-2015 ST ANXIETY [facility] DISORDER MED CTR CREPE MACHINE [place] [facility] 18943 OTHER ACUTE 01-04-2015 ST PAIN [facility] CREPE MACHINE [place] [facility] 75497 ESOPHAGEAL 01-04-2015 ST REFLUX [facility] CREPE MACHINE OPERATOR ST 5641 IRRITABLE 01-04-2015 ST BOWEL [facility] SYNDROME MED CTR CREPE MACHINE OPERATOR [facility] 27445 CHEST PAIN 01-04-2015 ST UNSPECIFIED [facility] MED CTR CREPE MACHINE OPERATOR ST 7210 CERVICAL 05-12-2014 RUKHSANA SPONDYLOSIS MAME QUINTEROS MD,PSC MYELOPATHY V5869 LONG-TERM 05-12-2014 RUKHSANA (CURRENT) ALDAIR, USE OF ,PSC OTHER MEDICATIONS 54461 OSTEOARTHRO 12-22-2013 TAZ GRE S UNSPEC WHETHER GEN/LOC UNSPEC SITE 7226 DEGENERATIO 12-22-2013 TAZCesar ESPARZA N INTERVERTEB RAL DISC SITE UNSPEC 7231 CERVICALGIA 12-22-2013 TAZ ESPARZA 84822 UNSPECIFIED 12-22-2013 TAZ GRE URINARY INCONTINENC E 7220 DISPLCMT 11-23-2013 NEUROSCIENC CERV E INTERVERT ASSOICATES DISC OF N WITHOUT MYELOPATHY 5589 OTH&UNSPEC 11-10-2013 TAZ GRE NONINFECTIO US GASTROENTER ITIS&COLITI S 7295 PAIN IN 11-10-2013 TAZ GRE SOFT TISSUES OF LIMB 41719 UNS 11-05-2013 FROILAN GONZÁLEZ GASTRITIS&G ASTRODUODIT IS W/O MENTION HEMORR 09413 DIVERTICULO 11-05-2013 FROILNA GONZÁLEZ SIS OF COLON 65835 NAUSEA WITH 11-05-2013 FROILAN GONZÁLEZ VOMITING 2777 DYSMETABOLI 10-06-2013 TAZ ESPARZA C SYNDROME X 6272 SYMPTOMATIC 10-06-2013 TAZ ISAIAS MENOPAUSAL/ FEMALE CLIMACTERIC STATES 3540 CARPAL 06-15-2013 TAZ ISAIAS TUNNEL SYNDROME 5990 URINARY 06-15-2013 TAZ GRE TRACT INFECTION SITE NOT SPECIFIED 85268 EXOSTOSIS 06-15-2013 TAZ ESPARZA OF UNSPECIFIED SITE 01010 CRAMP OF 04-27-2013 TAZ ISAIAS LIMB V0481 NEED 04-27-2013 TAZ ESPARZA PROPHYLACTI C VACCINATION &INOCULATIO N FLU V700 ROUTINE 01-11-2013 TAZ ESPARZA GENERAL MEDICAL EXAM@HEALTH CARE FACL 3559 MONONEURITI 09-14-2012 ST. S OF [facility] UNSPECIFIED JEREMI SITE 7224 DEGENERATIO 09-14-2012 ST. N OF [facility] CERVICAL JEREMI INTERVERTEB RAL DISC 4739 UNSPECIFIED 08-19-2012 TAZ ESPARZA SINUSITIS 09348 NAUSEA 08-19-2012 TAZ ISAIAS ALONE 0539 HERPES 07-03-2012 UTTER MELCHOR ZOSTER [...] 04-08-2012 TAZ GRE VACCINATION AGAINST STREP PNEUMONE 61575 OTHER 02-02-2012 [facility]OPHAG[facility] OLOGY A 39759 OTHER SPEC 02-02-2012 [facility] GASTRITIS GASTROENTER WITHOUT OLOGY A MENTION HEMORRHAGE 5379 UNSPECIFIED 02-02-2012 ST DISORDER [facility] DUODENUM 7871 HEARTBURN 02-02-2012 [facility] DIGESTIVE DISORDER 40096 DYSPHAGIA 02-02-2012 [place] [address] ABDOMINAL 02-02-2012 [facility] PAIN RIGHT GASTROENTER UPPER OLOGY A QUADRANT 62997 ABDOMINAL 02-02-2012 ST [place] [address] ABDOMINAL 02-02-2012 ST PAIN [place] [address] CALCU 12-15-2011 DAMICO GALLBLADD GONZÁLEZ W/OTH CHOLECYST W/O MENTION OBST 51008 CHRONIC 12-15-2011 ST CHOLECYSTIT [facility] IS MEDICALCENT ER 5759 UNSPECIFIED 12-03-2011 [facility] DISORDER GONZÁLEZ OF GALLBLADDER 63154 ABDOMINAL 11-26-2011 RADI[facility]Y PAIN, ASSOCIATES UNSPECIFIED OF [facility] SITE 89187 DIARRHEA 11-17-2011 [facility] 42089 OTHER&UNSPE 10-30-2011 [facility] NONSPECIFIC IMMUNOLOGIC AL FINDINGS 2809 UNSPECIFIED 09-30-2011 [facility] IRON DEFICIENCY ANEMIA 4779 ALLERGIC 09-15-2011 [facility] RHINITIS CAUSE UNSPECIFIED 34906 NODULAR 08-08-2011 TARA CHR LYMPHOMA UNSPEC SITE XTRANOD&CHENCHO ID ORGN 58617 OTH MALIG 08-06-2011 [facility] LYMPHOMAS ASS[facility]ATES UNS SITE OF [facility] XTRANOD&CHENCHO ID ORGN 18151 LEUKOCYTOSI 08-06-2011 [facility] S ASSOCIATES UNSPECIFIED OF [facility] 7856 ENLARGEMENT 07-31-2011 T[facility] CHR OF LYMPH NODES 89172 SPONDYLOSIS 07-14-2011 ST. UNSPEC [place] SITE W/O JEREMI MENTION MYELOPATHY 81931 EFFUSION OF 06-26-2011 BEERS HALLIE JOINT, SITE UNSPECIFIED 40502 PAIN IN 06-26-2011 BEERS HALLIE JOINT, SITE UNSPECIFIED 7804 DIZZINESS 05-05-2011 [place] [address] OBESITY, 01-24-2011 ST UNSPECIFIED [facility] MED CTR V727 DIAGNOSTIC 01-24-2011 [facility] [place] [place] [address] PAIN IN 12-27-2010 [facility] SHOULDER REGION 50625 PAIN IN 12-27-2010 [facility] ANKLE AND FOOT V7612 OTHER 12-20-2010 [facility] 15885 UNSPECIFIED 12-17-2010 [facility] OTALGIA [facility] 460 ACUTE 12-17-2010 [facility] NASOPHARYNG ASSOCIATES ITIS 7823 EDEMA 12-13-2010 [facility] 6262 EXCESSIVE 12-12-2010 [facility] [place] [address] SHORTNESS 12-12-2010 [facility] 05445 MEMORY LOSS 12-10-2010 [facility] 2449 UNSPECIFIED 12-05-2010 [facility] HYPOTHYROID INC ISM 08606 DIAB W/O 12-05-2010 [facility] COMP TYPE [facility] II/UNS NOT INC STATED UNCNTRL 2890 POLYCYTHEMI 12-05-2010 [facility] A, [facility] SECONDARY INC 3569 UNSPEC 12-05-2010 [facility] HEREDIT&IDI [facility] OPATHIC INC PERIPHERAL NEUROPATHY 7820 DISTURBANCE 12-03-2010 ABEL OF SKIN [facility] SENSATION 5693 HEMORRHAGE 11-26-2010 C HAIR OF RECTUM DC AND ANUS PSC 42093 ABDOMINAL 11-26-2010 C HAIR PAIN RIGHT DC LOWER PSC QUADRANT 39812 ABDOMINAL 11-26-2010 C HAIR PAIN, LEFT LUKASSTMARNIE LOWER PSC QUADRANT 7234 BRACHIAL 11-18-2010 [facility] NEURITIS OR ASSOCIATES RADICULITIS NOS 6268 OTH D/O 11-14-2010 [facility] MENSTRUATIO [facility] N&OTH ABN BLEED FE GNT TRACT 33623 OTHER 10-21-2010 [facility] MALAISE AND [facility] FATIGUE 7239 UNSPEC 10-11-2010 [facility] MUSCULOSKEL [facility] D/O&SYMPTOM S REFERABLE NECK 6929 CONTACT 10-01-2010 [facility] DERMATITIS[facility] OTHER ECZEMA DUE UNSPEC CAUSE 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[facility] 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 02268 ENTHESOPATH 12-13-2009 KENNETH BROWNING & UNSPECIFIED [place] SITE 8489 UNSPECIFIED 10-08-2009 [facility] SITE OF ASSOCIATES SPRAIN AND STRAIN 85712 ACUTE 07-25-2009 [facility] SEROUS [facility] OTITIS MEDIA 7931 NONSPEC 07-20-2009 [facility] OTH EXAM INC BODY STRUCT LUNG FIELD 490 BRONCHITIS 07-13-2009 [facility] NOT [facility]IATES SPECIFIED ACUTE OR CHRONIC 7850 UNSPECIFIED 06-29-2009 [facility] PROF SERV 4660 ACUTE 06-19-2009 [facility] BRONCHITIS [facility] 7243 SCIATICA 03-28-2009 [facility] 15781 OTHER 05-04-2008 [facility] INJURY OF ASSOCIATES CHEST WALL 3829 UNSPECIFIED 03-06-2008 [facility] OTITIS [facility] MEDIA 60155 UNSPECIFIED 12-02-2007 [facility] DELEON OSTEOPOROSI S 41321 CLOSED 10-11-2007 RESPIRATORY FRACTURE OF METATARSAL CONSULTANTS BONE INC E8889 UNSPECIFIED 09-25-2007 [facility] 75386 SPRAIN AND 09-24-2007 [facility] STRAIN OF [facility] UNSPECIFIED INC SITE OF FOOT 7992 SIGNS AND 09-23-2007 [facility] EMOTIONAL SERVICE STATE Medications Na ND Rx Da Fi Fi [...] 20 20 G ID 81 10 10 CAUTE 1 0 SE PH MG E TA [...] 03 1 60 30 72 SN Ac NE 78 -0 -0 .0 64 ID ti [...] A TA MA BL CY ET #5 AL 00 12 01 01 90 30 TO 72 SN Ac NE 78 -2 -2 .0 TA 06 ID ti AZ 11 2- 8- 00 L 69 ER ve OL 07 20 20 CA AM 70 09 10 RE BR 5 UC 0. PH E 5 AR A MG MA CY TA BL #5 ET FO 00 02 01 00 30 30 TO 66 TE Ac LI 14 -1 -2 .0 TA 63 MM ti C 31 7- 8- 00 L 36 IN ve AC 24 20 20 CA G ID 81 09 10 RE CUATE 1 0 SE PH PH MG AR E MA TA CY BL ET #5 LO 45 11 01 02 30 30 [...] 00 90 30 TO 72 SN Ac NE 78 -2 -3 .0 TA 06 ID [...] CY TA BL #5 ET AL 00 09 12 02 90 30 TO 71 SN Ac NE 78 -2 -0 .0 TA 26 ID [...] MA TA CY BL ET #5 LO 45 11 11 00 30 30 [...] HE AR NR MA Y CY #5 AL 00 09 11 01 90 30 TO 71 SN Ac NE 78 -2 -0 .0 TA 26 ID ti AZ 11 4- 5- 00 L 87 ER ve OL 07 20 20 CA AM 70 09 09 RE BR 5 UC 0. PH E 5 AR A MG MA CY TA BL #5 ET FO 00 10 11 00 30 30 TO 71 TE Ac LI 14 -1 -0 .0 TA 42 MM ti C 31 2- 5- 00 L 35 IN ve AC 24 20 20 CA G ID 81 09 09 RE CUATE 1 0 SE PH PH MG AR E MA TA CY BL ET #5 FO 00 09 10 00 30 30 [...] 00 90 30 TO 71 SN Ac NE 78 -2 -0 .0 TA 26 ID [...] CY ET #5 LO 00 06 07 01 [...] BL ET #5 LO 00 06 07 00 [...] Procedures Procedure DOS Code Location Performer Comment SCREENING 3014F ST [facility] 7 [facility] MAMMOGRAP HY PHYSICIAN RESULTS S DOC&REV COLORECTA 3017F [facility] L CANCER 7 [facility] SCREENING RESULTS PHYSICIAN DOC&REV S BMI DOC G8419 [facility] OUT NML 7 [facility] IQRA NO F/U PLN PHYSICIAN DOC NO S RSN GVN INFLUENZA G8482 [facility] 7 [facility] IMMUNIZAT ION PHYSICIAN ADMIN/PRE S VIOUSLY RECEIVED DEPRESSIO G8432 [facility] N SCR NOT 7 [facility] DOCUMENTE PHYSICIAN D REASON S NOT GIVEN INJECTION J1040 [facility] 6 LTH LTH METHYLPRE ORTHOPAED ORTHOPAED DNISOLONE IC CTR IC CTR ACETATE 80 MG WALKING L4361 [facility] BOOT 6 LTH LTH PNEUMATIC ORTHOPAED ORTHOPAED AND OR IC CTR IC CTR VACUUM PREFAB ARTHROCEN 18812 [facility] TESIS 6 LTH LTH ASPIR&/IN ORTHOPAED ORTHOPAED J MAJOR IC CTR IC CTR JT/BURSA W/O US RADEX 33577 RADIOLOGY [facility] 6 FARZAD COMPLETE ASSOCIATE MINIMUM 3 S OF NOTH VIEWS RADIOLOGI 61086 RADIOLOGY [place] [address]002 FARZAD EXAMINATI ASSOCIATE ON KNEE 3 S OF NOTH VIEWS RADEX 39926 [facility] 6 [facility] COMPLETE JEREMI JEREMI MINIMUM 3 VIEWS RADIOLOGI [address] EXAMINATI JEREMI JEREMI ON KNEE 3 VIEWS RADEX [address] COMPLETE JEREMI JEREMI MINIMUM 3 VIEWS RADEX 35925 [facility] ANKLE 6 LTH LTH COMPLETE ORTHOPAED ORTHOPAED MINIMUM 3 IC CTR IC CTR VIEWS ANKLE L1902 [facility] ORTH 6 LTH LTH ANKLE ORTHOPAED ORTHOPAED GAUNT/SIM IC CTR IC CTR PREFAB OFF-THE-S HELF PHYS CERT G0180 [facility] MCR-COVR 6 LTH LTH MARLYN HLTH ORTHOPAED ORTHOPAED SRVC PER IC CTR IC CTR CERT PRD RADIOLOGI [address] EXAMINATI JEREMI JEREMI ON KNEE 3 VIEWS WALKER E0143 [facility] 6 [facility] MEDICAL ADJUSTABL SV[facility] SV[facility] [place] [address] ST KEN[facility] SURG 6 [facility] SCOTT PATHOLOGY MED CTR GROSS&GONZÁLEZ ROSCOPIC EXAM RADIOLOGI 48214 RADIOLOGY [facility] C 6 SHAZIA EXAMINATI ASSOCIATE ON KNEE S OF NOTH 1/2 VIEWS ARTHRP 68744 [facility] KNE 6 LTH LTH CONDYLE&P ORTHOPAED ORTHOPAED LATU IC CTR IC CTR MEDIAL&LA T COMPARTME NTS ECG [address] [facility] CHR ROUTINE 6 [facility] ECG MED CTR W/LEAST 12 LDS I&R ONLY DRUG TST G0477 ST ST PRESUMP;C 6 [facility] DE PBL BEING READ DC PHYSICIAN PHYSICIAN OPT OBV S S ONLY PRESSURIZ 94565 ST ED/NONPRE 6 [facility] DE SSURIZED MED CTR MED CTR INHALATIO CREPE MACHINE OPERATOR ST CREPE MACHINE OPERATOR ST N TREATMENT BLOOD [address] TYPING 6 [facility] DE SEROLOGIC MED CTR MED CTR ABO CREPE MACHINE OPERATOR ST CREPE MACHINE OPERATOR ST ARTHROCEN 01192 [facility] TESIS 6 LTH LTH ASPIR&/IN ORTHOPAED ORTHOPAED J MAJOR IC CTR IC CTR JT/BURSA W/O US INJECTION J1040 [facility] 6 LTH LTH METHYLPRE ORTHOPAED ORTHOPAED DNISOLONE IC CTR IC CTR ACETATE 80 MG DUP-SCAN 57303 [facility] ROBIN MED CTR UNILATERA L/LIMITED STUDY INJECTION J1040 [facility] B[facility] 6 LTH EMERGENCY METHYLPRE ORTHOPAED DNISOLONE IC CTR AMBULANCE ACETATE S 80 MG ARTHROCEN 32483 [facility] TESIS 6 LTH LTH ASPIR&/IN ORTHOPAED ORTHOPAED J MAJOR IC CTR IC CTR JT/BURSA W/O US RADIOLOGI [address] C 6 [facility] DE EXAMINATI JEREMI JEREMI ON KNEE 3 VIEWS SCREENING 3014F [facility] 6 LTH LTH MAMMOGRAP ORTHOPAED ORTHOPAED HY IC CTR IC CTR RESULTS DOC&REV PATIENT G8399 [facility] W/DOC 6 LTH LTH RESULTS ORTHOPAED ORTHOPAED CENTRL IC CTR IC CTR DXA EVER BEING PERF ELDER G8734 [facility] MALTREATM 6 LTH LTH ENT ORTHOPAED ORTHOPAED SCREENING IC CTR IC CTR DOC NEG NO F/U REQ PNEUMOCOC 4040F [facility] MORRIS 6 LTH LTH VACCINE ORTHOPAED ORTHOPAED ADMIN IC CTR IC CTR RCVD PRIOR BMI DOC G8417 [facility] ABOVE 6 LTH LTH NORMAL ORTHOPAED ORTHOPAED IQRA & IC CTR IC CTR F/U PLAN DOCUMENTE D PT FALLS 1101F [facility] ASSESS 6 [...] TOBACCO IC CTR IC CTR CESSATION TALK KNEE L1810 [facility] ORTHOSIS 6 LTH LTH ELASTIC ORTHOPAED ORTHOPAED JOINTS IC CTR IC CTR PREFAB CUSTOM FIT DUP-SCAN 55448 ST DANYA BAR XTR VEINS 6 [facility] MED CTR UNILATERA L/LIMITED STUDY PROTHROMB [address] IN TIME 5 [facility] MED CTR MED CTR CREPE MACHINE OPERATOR ST CREPE MACHINE OPERATOR ST ECG [address] ROUTINE 5 [facility] ECG MED CTR MED CTR W/LEAST CREPE MACHINE OPERATOR ST CREPE MACHINE OPERATOR ST 12 LDS TRCG ONLY W/O I&R THROMBOPL 76863 ST [facility]EL[facility] TERRA ASTIN 5 [facility] TIME MED CTR PARTIAL CREPE MACHINE OPERATOR ST PLASMA/WH OLE BLOOD BLOOD [address] TYPING 5 [facility] DE SEROLOGIC MED CTR MED CTR RH (D) CREPE MACHINE OPERATOR ST CREPE MACHINE OPERATOR ST CUL [address] PRSMPTV 5 [facility] DE PTHGNC MED CTR MED CTR ORGANISM CREPE MACHINE OPERATOR ST CREPE MACHINE OPERATOR ST SCRN W/COLONY ESTIMJ BLOOD [address] COUNT 5 [facility] DE COMPLETE MED CTR MED CTR AUTO&AUTO CREPE MACHINE OPERATOR ST CREPE MACHINE OPERATOR ST DIFRNTL WBC ECG [address] ST MCDANNOLD ROUTINE [address] [place] [address] ECG MED CTR W/LEAST 12 LDS I&R ONLY ANTIBODY [address] SCREEN 5 [facility] DE RBC EACH MED CTR MED CTR SERUM CREPE MACHINE OPERATOR ST CREPE MACHINE OPERATOR ST TECHNIQUE BLOOD [address] TYPING 5 [facility] DE SEROLOGIC MED CTR MED CTR ABO CREPE MACHINE OPERATOR ST CREPE MACHINE OPERATOR ST URNLS DIP [address] 5 [facility] DE STICK/TAB MED CTR MED CTR LET RGNT CREPE MACHINE OPERATOR ST CREPE MACHINE OPERATOR ST AUTO W/O MICROSCOP Y BMI DOC G8419 ST ST OUT NML 5 [facility] DE IQRA NO F/U PLN PHYSICIAN PHYSICIAN DOC NO S S RSN GVN INFLUENZA G8482 ST [facility]ERNANDEZ 5 [place] BAER IMMUNIZAT ION PHYSICIAN ADMIN/PRE S VIOUSLY RECEIVED DEPRESSIO G8432 ST ST N SCR NOT 5 [place] DE DOCUMENTE PHYSICIAN PHYSICIAN D REASON S S NOT GIVEN RADIOLOGI [address] C 5 [place] EXAMINATI JEREMI JEREMI ON KNEE 3 [place] [address] JT LOWER 5 [place] DE EXTREM JEREMI JEREMI W/O CONTRAST MATRL THERAPEUT [address] IC 5 [place] DE PROPHYLAC TIC/DX PHYSICIAN PHYSICIAN INJECTION S S SUBQ/IM INJECTION J1030 ST TAZ GRE 5 [place] METHYLPRE DNISOLONE PHYSICIAN ACETATE S [address] TAZ GRE 5 [place] METHYLPRE DNISOLONE PHYSICIAN ACETATE S 80 MG INJECTION J1040 COMMONWE[place] MARYLUTZEL 5 LTH OSIEL METHYLPRE ORTHOPAED DNISOLONE IC CTR ACETATE 80 MG ARTHROCEN 66488 COMMONKATIE LEE TESIS 5 LTH OSIEL ASPIR&/IN ORTHOPAED J MAJOR IC CTR JT/BURSA W/O US RADIOLOGI [address] C 5 [place] SANTINO EXAMINATI JEREMI JEREMI ON KNEE 3 VIEWS RADEX 19179 RUKHSANA QUINTEROS SPINE 5 KYRA QUINTEROS LUMBOSACR ,PSC AL MINIMUM 4 VIEWS DUP-SCAN 10479 ST BARDGETT, XTR VEINS 5 [place] JR JAM [facility] UNILATERA L/LIMITED STUDY THER [address] PROPH/DX 5 [place] NJX IV MED CTR MED CTR PUSH CREPE MACHINE OPERATOR ST CREPE MACHINE OPERATOR ST SINGLE/1S T SBST/DRUG ECG 55589 ST ZAPATA CHR ROUTINE 5 [place] ECG MED CTR W/LEAST 12 LDS I&R ONLY RADIOLOGI [address] C 5 [place] EXAMINATI MED CTR MED CTR ON CHEST CREPE MACHINE OPERATOR ST CREPE MACHINE OPERATOR ST SINGLE VIEW FRONTAL RADIOLOGI 91206 PROSCAN YG C 5 RADIOLOGY [facility] EXAMINA ON KNEE 1/2 VIEWS ECG 80800 RUKHSANA QUINTEROS ROUTINE 4 KYRA QUINTEROS ECG ,PSC W/LEAST 12 LDS W/I&R INJECTION J1885 TAZ GRE TAZ GRE 4 KETOROLAC TROMETHAM INE PER 15 MG THERAPEUT 12613 TAZ GRE TAZ GRE IC 4 PROPHYLAC TIC/DX INJECTION SUBQ/IM INJECTION J1885 NEUROSCIE NEUROSCIE 4 NCE NCE KETOROLAC ASSOICATE ASSOICATE S OF N S OF N TROMETHAM INE PER 15 MG INJECTION J1030 TAZ GRE TAZ GRE 4 METHYLPRE DNISOLONE ACETATE 40 MG THERAPEUT 85382 TAZ GRE TAZ GRE IC 4 PROPHYLAC TIC/DX INJECTION SUBQ/IM INJECTION J1040 TAZ GRE TAZ GRE 4 METHYLPRE DNISOLONE ACETATE 80 MG ECG 48459 FROILAN MCGOVERN ROUTINE 4 GONZÁLEZ GONZÁLEZ ECG W/LEAST 12 LDS I&R ONLY THERAPEUT 49043 TAZ GRE TAZ GRE IC 4 PROPHYLAC TIC/DX INJECTION SUBQ/IM INJECTION J1885 TAZ GRE TAZ GRE 4 KETOROLAC TROMETHAM INE PER 15 MG THERAPEUT 13418 TAZ GRE TAZ GRE IC 3 PROPHYLAC TIC/DX INJECTION SUBQ/IM THERAPEUT 83737 TAZ GRE TAZ GRE IC 3 PROPHYLAC TIC/DX INJECTION SUBQ/IM THERAPEUT 65006 TAZ GRE TAZ GRE IC 3 PROPHYLAC TIC/DX INJECTION SUBQ/IM INJECTION J1040 TAZ GRE TAZ GRE 3 METHYLPRE DNISOLONE ACETATE 80 MG INJECTION J1030 TAZ GRE TAZ GRE 3 METHYLPRE DNISOLONE ACETATE 40 MG RADIOLOGI 66022 ANA ROSA AVILES 3 EXAMINATI ON CHEST SINGLE VIEW FRONTAL MRI [address] SPINAL 3 [place] CANAL JEREMI JEREMI THORACIC W/O CONTRAST MATRL MRI [address] SPINAL 3 [facility] CANAL JEREMI JEREMI CERVICAL W/O CONTRAST MATRL INJECTION J1030 TAZ GRE TAZ GRE 3 METHYLPRE DNISOLONE ACETATE 40 MG THERAPEUT 84588 TAZ GRE TAZ GRE IC 3 PROPHYLAC TIC/DX INJECTION SUBQ/IM INJECTION J1040 TAZ GRE DECLAN 3 DEN METHYLPRE DNISOLONE ACETATE 80 MG THERAPEUT 91705 TAZ GRE TAZ GRE IC 2 PROPHYLAC TIC/DX INJECTION SUBQ/IM INJECTION J1885 TAZ GRE TAZ GRE 2 KETOROLAC TROMETHAM INE PER 15 MG INJECTION J1885 UTTER MELCHOR UTTER MELCHOR 2 KETOROLAC TROMETHAM INE PER 15 MG THERAPEUT 41927 UTTER MELCHOR UTTER MELCHOR IC 2 PROPHYLAC TIC/DX INJECTION SUBQ/IM INJECTION J1040 UTTER MELCHOR UTTER MELCHOR 2 METHYLPRE DNISOLONE ACETATE 80 MG THERAPEUT 59259 TAZ GRE TAZ GRE IC 2 PROPHYLAC TIC/DX INJECTION SUBQ/IM INJECTION J1885 TAZ GRE TAZ GRE 2 KETOROLAC TROMETHAM INE [place] [address] [place] [address] SURG 2 [facility] PATHOLOGY MEDICALCE MEDICALCE GROSS&GONZÁLEZ NTER NTER ROSCOPIC EXAM COLSC FLX 44095 ANGIE ADAMS W/RMVL 2 WILMAR URBAN MD OF TUMOR POLYP LESION SNARE TQ THERAPEUT 80659 TAZ GRE TAZ GRE IC 2 PROPHYLAC TIC/DX INJECTION SUBQ/IM INJECTION J1885 TAZ GRE TAZ GRE 2 KETOROLAC TROMETHAM [place] [address] [facility] SURG 2 N ROBIN PATHOLOGY GASTROENT EROLOGY A GROSS&GONZÁLEZ ROSCOPIC EXAM COLLECTIO [address] N VENOUS 2 [facility] BLOOD VENIPUNCT MEDICALCE MEDICALCE URE NTER NTER ANTINUCLE [address] AR 2 [facility] ANTIBODIE S NADEGE MEDICALCE MEDICALCE NTER NTER BLOOD [address] COUNT 2 [facility] COMPLETE AUTO&AUTO MEDICALCE MEDICALCE DIFRNTL NTER NTER WBC EGD 32076 ANGIE ADAMS TRANSORAL 2 WILMAR URBAN MD BIOPSY SINGLE/MU LTIPLE DILATION 02455 ANGIE ADAMS ESOPH 2 WILMAR URBAN MD UNGUIDED SOUND/DALLAS GIE 1/MULT PASS ANES [address] ST [address] INTRAPERI 2 [facility] TONEAL UPPER MEDICALCE MEDICALCE ABDOMEN NTER NTER W/LAPS NOS BLOOD 97455 ST ST COUNT 2 [facility] COMPLETE AUTO&AUTO MEDICALCE MEDICALCE DIFRNTL NTER NTER WBC INJECTION J0131 ST ST 2 [facility] ACETAMINO PHEN 10 MEDICALCE MEDICALCE MG NTER NTER INJECTION J0744 ST ST 2 [facility] CIPROFLOX ACIN MEDICALCE MEDICALCE INTRAVENO NTER NTER US INFUS [address] IN[address] 2 [facility] MIDAZOLAM HCL PER MEDICALCE MEDICALCE 1 MG NTER NTER INJECTION J2270 [facility] ST [facility]PHINE 2 [facility] SUL[facility] TO 10 MEDICALCE MEDICALCE MG NTER NTER LAPAROSCO [address] PY SURG 2 [facility] CHOLECYST ECTOMY MEDICALCE MEDICALCE NTER NTER INJECTION J[address] [facility] DEXAMETH[facility] SONE MEDICALCE MEDICALCE SODIUM NTER NTER PHOSPHATE [address] IN[address] [facility] SUCCINYLC HOLINE MEDICALCE MEDICALCE CHLORIDE NTER NTER UP TO [address] IN[address] [facility] DIMENHYDR INATE UP MEDICALCE MEDICALCE TO 50 MG NTER NTER INJ J1720 [facility] ST HY[facility]OCORT 2 [facility] ISONE SODIUM MEDICALCE MEDICALCE SUCCINATE NTER NTER TO [address] IN[address] [facility] ONDANSETR ON HCL MEDICALCE MEDICALCE PER 1 [place] [address] SURG 2 [facility] PATHOLOGY MEDICALCE MEDICALCE GROSS&GONZÁLEZ NTER NTER ROSCOPIC EXAM INJECTION J2710 ST ST [facility] NEOSTIGMI NE MEDICALCE MEDICALCE METHYLSUL NTER NTER FATE UP TO 0.[address] FENTANYL 2 [facility] CITRATE 0.1 MG MEDICALCE MEDICALCE NTER NTER RADIOLOGI [address] C EXAM 2 [facility] CHEST 2 VIEWS MEDICALCE MEDICALCE FRONTAL&L NTER NTER ATERAL INJECTION J2405 ST ST 2 [facility] ONDANSETR ON HCL MEDICALCE MEDICALCE PER 1 MG NTER NTER COLLECTIO 84553 ST ST N VENOUS 2 [facility] BLOOD VENIPUNCT MEDICALCE MEDICALCE URE NTER NTER HEPATIC [address] FUNCTION 2 [facility] PANEL MEDICALCE MEDICALCE NTER NTER THERAPEUT [address] IC 2 [facility] PROPHYLAC TIC/DX MEDICALCE MEDICALCE INJECTION NTER NTER SUBQ/IM INJECTION J2270 ST ST MORPHINE 2 [facility] SULFATE UP TO 10 [place] [address] ABDOMINAL 2 [facility] REAL TIME MEDICALCE MEDICALCE W/IMAGE NTER NTER LIMITED BLOOD [address] COUNT 2 [facility] COMPLETE AUTO&AUTO MEDICALCE MEDICALCE DIFRNTL NTER NTER WBC TECHNETIU A[address] [facility] M TC-99M 2 [facility] MEBROFENI JEREMI JEREMI N DX UP TO [address] 2 [facility] SINCALIDE JEREMI JEREMI 5 MICROGRAM S INFUSION J70[address] NORMAL 2 [facility] SALINE JEREMI JEREMI SOLUTION [address] SYST 2 [facility] IMAG INC JEREMI JEREMI GB W/PHARMA INTERVENJ ECG 26258 ZAPATA CHR ZAPATA CHR ROUTINE 2 ECG W/LEAST 12 LDS I&R ONLY INJECTION J1040 TAZ GRE TAZ GRE 2 METHYLPRE DNISOLONE ACETATE 80 MG THERAPEUT 55634 TAZ GRE TAZ GRE IC 2 PROPHYLAC TIC/DX INJECTION SUBQ/IM INJECTION J1030 TAZ GRE TAZ GRE 2 METHYLPRE DNISOLONE ACETATE [address] 300-399 2 SANTINO SANTINO MG/ML IODINE MEDICALCE MEDICALCE [place] [address] ABDOMEN & 2 [facility] PELVIS W/CONTRAS MEDICALCE MEDICALCE T NTER NTER MATERIAL THERAPEUT 67033 TAZ GRE TAZ GRE IC 2 PROPHYLAC TIC/DX INJECTION SUBQ/IM ECG 70602 TAZ GRE TAZ GRE ROUTINE 2 ECG W/LEAST 12 LDS W/I&R THERAPEUT 93853 TAZ GRE TAZ GRE IC 2 PROPHYLAC TIC/DX INJECTION SUBQ/IM INJECTION J0696 TAZ GRE TAZ GRE 2 CEFTRIAXO NE SODIUM PER 250 MG LOCM Q9967 TARA CHR TARA CHR 300-399 1 MG/ML IODINE CONCENTRA TION PER ML CT SOFT 58131 RADIOLOGY DARDINGER TISSUE 1 SMITHA NECK ASSOCIATE W/CONTRAS S OF NOTH T MATERIAL CT THORAX 22057 RADIOLOGY DARDINGER 1 SMITHA W/CONTRAS ASSOCIATE T S OF NOTH MATERIAL RADIOLOGI [address] C EXAM 1 [facility] CHEST 2 JEREMI JEREMI VIEWS FRONTAL&L ATERAL RADEX 91952 [facility] HAND 2 1 ARTHRITIS ARTHRITIS VIEWS AND AND RHEUM RHEUM NONEMERGE A0100 LKLP BENNETTS NCY 1 [facility] TRANSP[facility] TRANSPORT ACTION ATION CO ATION; L TAXI BASIC [address] [facility]ABOLIC 1 [facility] CALCIUM MEDICAL[place] [address] AMYLASE 1 [facility] MEDICALCE MEDICALCE NTER NTER NONEMERGE A0100 LKLP BENNETTS NCY 1 [facility] TRANSPORT TRANSPORT [place] [address] [facility]IIODOTH 1 [facility] T3 FREE MEDICALCE MEDICALCE NTER NTER BLOOD [address] COUNT 1 [facility] COM[facility]TE AUTOMATED MEDICALCE MEDICALCE NTER NTER CYANOCOBA [address] SERINA 1 SANTINO DE VITAMIN B-12 [place] [address] LIPASE 1 SANTINO DE MEDICALCE MEDICALCE NTER NTER THERAPEUT 33941 ST TAZ GRE IC 1 SANTINO PROPHYLAC TIC/DX PHYSICIAN INJECTION S SUBQ/IM INJECTION J1885 ST TAZ GRE 1 SANTINO KETOROLAC PHYSICIAN TROMETHAM S INE PER 15 MG NONEMERGE A0100 LKLP BENNETTS NCY 1 [facility] TRANSPORT TRANSPORT ACTION ATION CO ATION; L TAXI COLLECTIO 72556 ST ST N VENOUS 1 [facility]INO BLOOD VENIPUNCT MEDICALCE MEDICALCE URE NTER NTER INJECTION J1030 PANCHO BROWNING 1 [facility] METHYLPRE TEMMING DNISOLONE ACETATE 40 MG INJECTION J1020 PANCHO BROWNING 1 [facility] METHYLPRE TEMMING DNISOLONE ACETATE 20 MG INJECTION J3420 FAMILY MARCK VIT B-12 1 CARE R H ASSOCIATE CYANOCOBA S SERINA TO 1000 MCG THERAPEUT 04125 [facility] CARE R H PROPHYLAC ASSOCIATE TIC/DX S INJECTION SUBQ/IM COMPUTER- 04162 [facility] AIDED 1 MEDICAL YOHANNES DETECTION IMAGING ASS SCREENING MAMMOGRAP HY SCREENING G0202 [facility] 1 MEDICAL Y[facility]ANNES MAMMOGRAP IMAGING HY CARLOS ASS INCL CAD WHEN PERFORMD BLOOD 71961 FAMILY FAMILY COUNT 1 CARE CARE COMPLETE ASSOCIATE ASSOCIATE AUTO&AUTO S S DIFRNTL WBC INJECTION J3420 [facility] MARCK VIT B-12 1 CARE R H ASSOCIATE CYANOCOBA S SERINA TO 1000 MCG THERAPEUT 77031 [facility] MARCK IC 1 CARE R H PROPHYLAC ASSOCIATE TIC/DX S INJECTION SUBQ/IM RADIOLOGI 79053 [place] J[place] C EXAM 1 MEDICAL [facility] CHEST 2 IMAGING VIEWS ASS FRONTAL&L ATERAL COMPREHEN 60914 ANNALEE MANTILLA SIVE 1 [facility] [place] [address] [facility] BAR[facility] TRANSVAGI 1 [facility] ELIF RED[place] [address] ANNALEE MANTILLA IC 1 [facility] PEPTIDE INC INC BLOOD 72401 ANNALEE MANTILLA COUNT 1 [facility] COMPLETE INC INC AUTO&AUTO DIFRNTL WBC MRI BRAIN 59072 [facility] BRAIN 1 MEDICAL [facility] STEM W/O IMAGING CONTRAST ASS MATERIAL COLLECTIO 57699 ANNALEE MANTILLA N VENOUS 1 [facility] [place] [address] ANNALEE MANTILLA FOLIC 1 [facility] ACID INC INC SERUM COMPREHEN 65160 ANNALEE MANTILLA SIVE 1 [facility] [place] [address] ANNALEE MANTILLA THYROXINE 1 [facility] [place] [address] ANNALEE MANTILLA THYROID 1 [facility] STIMULATI INC INC NG HORMONE TSH BLOOD 97408 ANNALEE MANTILLA COUNT 1 [facility] COMPLETE INC INC AUTO&AUTO DIFRNTL WBC HEMOGLOBI 49634 ANNALEE MANTILLA N 1 [facility] GLYCOSYLA INC INC SHIRLENE A1C LIPID 83096 ANNALEE MANTILLA PANEL 1 [facility] INC INC PROTEIN 13779 ANNALEE MANTILLA ELECTROPH 1 [facility] ORETIC INC INC FRACTJ&[place] [address] ANNALEE MANTILLA THIAMINE- 1 [facility] VITAMIN INC INC B-1 CYANOCOBA 09465 ANNALEE MANTILLA SERINA 1 [facility] VITAMIN INC INC B-12 NDL EMG 4 08953 COLTEN ABEL XTR W/WO 1 TIFFANY ALLEN RELATED PARASPINA L AREAS NRV CNDJ 09049 COLTEN ABEL AMPLT&LAT 1 TIFFANY ALLEN ENCY EA NRV MOTOR W/F-WAVE STD NRV CNDJ 86948 ABEL ABEL AMPLITUDE 1 TIFFANY TIFFANY & LATENCY EACH NERVE SENSORY BLOOD 04756 FAMILY FAMILY COUNT 1 CARE CARE COMPLETE ASSOCIATE ASSOCIATE AUTO&AUTO S S DIFRNTL WBC BLOOD 49047 [facility] OF COUNT 1 [facility] COMPLETE AUTOMATED SEDIMENTA 56614 [facility] TION RATE 1 [facility] RBC AUTOMATED HEPATIC 27111 [facility] FUNCTION 1 [facility] PANEL COLLECTIO 79357 [facility] OF N VENOUS 1 [facility] BLOOD VENIPUNCT URE MRI 88415 [place] JIN SPINAL 1 MEDICAL [facility] CANAL IMAGING CERVICAL ASS W/O CONTRAST MATRL RADEX 45202 [place] JIN SPINE 1 [facility]ICAL [facility] CERVICAL IMAGING 4 OR 5 ASS VIEWS RADEX 77931 ANNALEE MANTILLA SPINE 1 [facility] CERVICAL INC INC 6 OR MORE VIEWS IIV3 87109 FAMILY RONALD Foy VACCINE 0 CARE SPLIT ASSOCIATE VIRUS 0.5 S ML DOSAGE IM USE ADMINISTR G0008 FAMILY RONALD Foy ATION OF 0 CARE INFLUENZA ASSOCIATE VIRUS S VACCINE HEPATIC 07219 [facility] FUNCTION 0 [facility] PANEL BLOOD 72913 [facility] COUNT 0 [facility] COMPLETE AUTOMATED COLLECTIO 26182 [facility] N VENOUS 0 [facility] BLOOD VENIPUNCT URE SEDIMENTA 97542 [facility] TION RATE 0 [facility] RBC AUTOMATED COLLECTIO 51800 [facility] OF N VENOUS 0 [facility] BLOOD VENIPUNCT URE INJECTION J1030 NALLELY TEMMING 0 [facility] METHYLPRE TEMMING DNISOLONE ACETATE 40 MG BLOOD 25742 [facility] COUNT 0 [facility] COMPLETE AUTOMATED INJECTION J1040 GIBRANATH, TEMMING 0 [facility] METHYLPRE TEMMING DNISOLONE ACETATE 80 MG HEPATIC 69667 [facility] FUNCTION 0 [facility] PANEL CREATININ 04016 [facility] E BLOOD 0 [facility] CREATINE 69257 ANNALEE MANTILLA KINASE 0 [facility] TOTAL INC INC ECG 32995 LAILA GAMEZ, ROUTINE 0 EMERGENCY YONNY ECG SERVICES O W/LEAST 12 LDS [place]OCI[place] [address] ANNALEE MANTILLA TROPONIN 0 [facility] QUANTITAT INC INC BONITA BLOOD 97692 ANNALEE MANTILLA COUNT 0 [facility] COMPLETE INC INC AUTO&AUTO DIFRNTL WBC CREATINE 15116 ANNALEE MANTILLA KINASE MB 0 [facility] FRACTION INC INC ONLY RADEX 68574 TINYKanu JIN, ABDOMEN 1 0 [facility] ANTEROPOS ASSOCIATE TERIOR S VIEW RADEX 81840 ANNALEE MANTILLA ABDOMEN 0 [facility] COMPL INC INC W/DCBTS&/ ERC VIEWS BASIC 02929 ANNALEE MANTILLA METABOLIC 0 [facility] PANEL INC INC CALCIUM TOTAL RADIOLOGI 84750 ANNALEE MANTILLA C [address] [facility] EXAMINATI INC INC [place] [address] [facility] UREA 0 [facility] NITROGEN QUANTITAT B[place] BLOOD 84796 [facility] COUNT 0 [facility] COMPLETE AUTO&AUTO DIFRNTL WBC HEPATIC 87519 [facility] FUNCTION 0 [facility] PANEL CREATININ 44347 [facility] E BLOOD [address] [place] [address] PANCHO BROWNING, GUIDANCE 0 BRAYAN Higuera NEEDLE RONMING PLACEMENT IMG S&I INJECTION J1040 PANCHO BROWNING, 0 BRAYAN Higuera METHYLPRE TEMSARAH DNISOLONE ACETATE 80 MG ARTHROCEN 27032 PANCHO BROWNING TESIS 0 BRAYAN Higuera ASPIR&/IN TEMSARAH J MAJOR JT/BURSA W/O BLOOD 59449 FAMILY MARCK, COUNT 0 CARE R SERJIO COMPLETE ASSOCIATE AUTO&AUTO S DIFRNTL WBC IAADIADOO 10153 FAMILY MARCK, 0 YFN BASSETT STREPTOCO ASSOCIATE CCUS S GROUP A THERAPEUT 22887 FAMILY RAYAT, IC 0 YFN BASSETT PROPHYLAC ASSOCIATE TIC/DX S INJECTION SUBQ/IM INJECTION J1030 FAMILY RAYAT, 0 YFN BASSETT METHYLPRE ASSOCIATE DNISOLONE S ACETATE 40 MG BLOOD 12604 FAMILY MARCK, COUNT 9 YFN BASSETT COMPLETE ASSOCIATE AUTO&AUTO S DIFRNTL WBC CT THORAX 30288 ANNALEE MANTILLA 9 [facility] W/CONTRAS INC INC T MATERIAL 3D 01946 ANNALEE MANTILLA RENDERING 9 [facility] W/INTERP& [place] [address] [facility] UREA 9 [facility] NITROGEN QUANTITAT BONITA COLLECTIO 48949 Law LAINEZ N VENOUS 9 CARE G BLOOD ASSOCIATE VENIPUNCT S URE CREATININ 19796 [facility] E BLOOD 9 [facility] ADMINISTR G0008 Law LAINEZ ATION OF 9 CARE G INFLUENZA ASSOCIATE VIRUS S VACCINE IIV3 86185 Law LAINEZ VACCINE 9 CARE G SPLIT ASSOCIATE VIRUS 0.5 S ML DOSAGE IM USE ECG 90641 ANNALEE MANTILLA ROUTINE 9 [facility] ECG INC INC W/LEAST 12 LDS TRCG ONLY W/O I&R RADIOLOGI 27886 ANNALEE MANTILLA C EXAM 9 [facility] HOSP CHEST 2 INC INC VIEWS FRONTAL&L ATERAL BLOOD 38413 FAMILY MARCK, COUNT 9 YFN BASSETT COMPLETE ASSOCIATE AUTO&AUTO S DIFRNTL WBC COMPREHEN 47570 [facility] SIVE 9 [facility] METABOLIC PANEL INJECTION J1030 FAMILY RAYAT, 9 YFN BASSETT METHYLPRE ASSOCIATE DNISOLONE S ACETATE 40 MG THERAPEUT 10718 FAMILY RAYAT, IC 9 YFN BASSETT PROPHYLAC ASSOCIATE TIC/DX S INJECTION SUBQ/IM COLLECTIO 79932 [facility] OF N VENOUS 9 [facility] BLOOD VENIPUNCT URE BLOOD 50984 [facility] OF COUNT 9 [facility] COMPLETE AUTOMATED CREATININ 24614 [facility] E BLOOD 9 [facility] HEPATIC 93745 [facility] OF FUNCTION 9 [facility] PANEL INJECTION J1030 [facility] MARCK, 9 YFN BASSETT METHYLPRE ASSOCIATE DNISOLONE S ACETATE 40 MG THERAPEUT 41569 [facility] MARCK, IC 9 YFN BASSETT PROPHYLAC ASSOCIATE TIC/DX S INJECTION SUBQ/IM RADEX 52133 PANCHO BROWNING, HAND 2 9 BRAYAN Higuera VIEWS TEMMING INJECTION J1030 PANCHO BROWNING, 9 BRAYAN Higuera METHYLPRE TEMMING DNISOLONE ACETATE 40 MG COLLECTIO 47930 [facility] OF N VENOUS 9 [facility] BLOOD VENIPUNCT URE HEPATIC 83927 [facility] OF FUNCTION 9 [facility] PANEL BLOOD 70415 [facility] OF [facility] OF COUNT 9 [facility] COMPLETE AUTOMATED INJECTION J1040 PANCHO BROWNING, 9 MODESTA & CHASE Higuera METHYLPRE TEMMING DNISOLONE ACETATE 80 MG INJECTION J1030 [facility] MARCK, 8 YFN BASSETT METHYLPRE ASSOCIATE DNISOLONE S ACETATE 40 MG DXA BONE 45951 PANCHO DELEON, DENSITY 8 CHASE Higuera STUDY 1/> SITES AXIAL SKEL WALKING L4386 RESPIRATO RESPIRATO BOOT 8 RY RY NON-PNEUM CONSULTAN CONSULTAN ATIC TS INC [place] [address] [facility] 8 YFN COULTER METATARSA ASSOCIATE ASSOCIATE L S S FRACTURE W/O MANIPULAT ION BONE 96265 [place] EFRAIN, &/JOINT 8 MEDICAL AIDAN Alejandre IMAGING IMAGING LIMITED ASSOCIATE AREA S TECHNETIU A9503 ANNALEE Hector TC-99M 8 [facility] MEDRONATE INC INC DX UP TO 30 MCI AMBULANCE A0429 VIOLET VIOLET SERVICE 8 CO CO BLS AMBULANCE AMBULANCE EMERGENCY SERVICE SERVICE TRANSPORT GROUND A0425 VIOLET VIOLET MILEAGE 8 CO CO PER AMBULANCE AMBULANCE STATUTE SERVICE SERVICE MILE RADEX 48760 ANNALEE MANTILLA FOOT 8 [facility] COMPLETE INC INC MINIMUM 3 VIEWS RADEX 32984 [facility] ANKLE 8 MEDICAL MEDICAL COMPLETE IMAGING IMAGING MINIMUM 3 ASSOCIATE ASSOCIATE VIEWS S S GROUND A0425 VIOLET VIOLET MILEAGE 8 CO CO PER AMBULANCE AMBULANCE STATUTE SERVICE SERVICE MILE AMBULANCE A0429 VIOLET VIOLET SERVICE 8 CO CO BLS AMBULANCE AMBULANCE EMERGENCY SERVICE SERVICE TRANSPORT Encounters Encounter Start End Date Code Location Performer Type Date OFFICE 37491 [facility] OUTPATIEN 7 7 [facility] VISIT 25 [facility] ANNALEE - 6 6 [facility] T VISIT INC [address] ACCESS 6 6 [facility] ACCESS 6 6 [facility] ACCESS 6 6 [facility] ACC[facility] 6 6 [facility] JER[facility] OFF[facility] 22736 [facility] 6 6 [facility], [address] - 6 [facility] - 6 [facility] [place] ACCESS 6 6 [facility] CRITICAL ST. ACCESS 6 6 [facility] JER[facility] OFF[facility] 29723 [facility] OUT[facility]IEN [address] [facility] LTH T VISIT ORTHOPAED ORTHOPAED 15 IC CTR IC CTR MINUTES CRITICAL ST. ACCESS 6 6 [facility] JEREMI OFFICE [address] [facility] FERNANDEZ OUTPATIEN 6 6 [facility] KEYUR T VISIT 15 PHYSIC[address] [facility] - 5 5 [facility] OUTPATIEN MED CTR T CREPE MACHINE OPERATOR ST OFFICE [address]192 ST FERNANDEZ OUTPATIEN 5 5 [facility] KEYUR T VISIT 25 PHYSICIAN MINUTES S OFFICE 48272 [facility] HOBLITZEL OUTPATIEN [address] [facility] OSIEL T VISIT ORTHOPAED 15 IC CTR MINUTES CRITICAL [facility] ACCESS 5 5 [facility] CRITICAL ST. ACCESS 5 5 [facility] CRITICAL [facility] ACCESS 5 5 [facility] JEREMI OFFICE 04882 [facility] HOBLITZEL [facility]PATIEN [address] [facility] OSIEL T NEW 30 ORTHOPAED MINUTES IC [facility] ST - 5 5 [facility] OUTPATIEN MED CTR T CREPE MACHINE OPERATOR [facility] EMERGENCY [address] 5 [facility] T VISIT CREPE MACHINE OPERATOR ST HIGH/URGE NT TONSIL [facility]OSP[facility] CRITICAL ST. ACCESS 3 3 [facility] JEREMI OFFICE 74657 TAZ ISAIAS MCGHEE GRE OUTPATIEN 3 3 T VISIT [address] - OTHER 2 2 [facility] - OTHER 2 2 [facility] ST - 2 2 [facility] OUTPATIEN T [facility] EMERGENCY [address] ST [facility]CE HIGH/[facility] - 2 2 [facility] OUTPATIEN T MEDICALCE NTER CRITICAL ST. ACCESS 2 2 [facility] ST - 2 2 [facility] OUTPATIEN T MEDICALCE NTER OFFICE 53324 [facility] OUTPATIEN 2 2 T VISIT [address] ACCESS 1 1 [facility] JEREMI OFFICE 70798 [facility]ING OUTPATIEN 1 1 ARTHRITIS BETTE T VISIT AND [address] - OTHER 1 1 [facility] MEDICALCE NTER OFFICE [address] [facility] TAZ GRE OUTPATIEN 1 1 [facility] T VISIT 25 PHYSICIAN MINUTES [facility] ST - OTHER 1 1 [facility] MEDICALCE NTER OFFICE 45401 ST TAZ GRE OUTPATIEN 1 1 [facility] T NEW 45 MED CTR MINUTES OFFICE 43214 [facility] DUE THO OUTPATIEN [address] [facility] T NEW 30 ORTHOPAE MINUTES OFFICE 82731 KUNATH, TEMMING OUTPATIEN 1 1 BYERS & BETTE T VISIT 5 TEMMING MINUTES OFFICE 72462 FAMILY MARCK OUTPATIEN 1 1 CARE R H T VISIT ASSOCIATE 15 S MINUTES HOSPITAL ANNALEE - 1 1 [facility] OUTPATIEN INC T OFFICE 55515 FAMILY MARCK OUTPATIEN 1 1 CARE R H T VISIT ASSOCIATE 15 S MINUTES OFFICE 19999 FAMILY MARCK OUTPATIEN 1 1 CARE R H T VISIT ASSOCIATE 15 S MINUTES EMERGENCY 75533 ANNALEE 1 1 [facility] DEPARTMEN INC T VISIT LOW/MODER SEVERITY [facility]OSPITAL ANNALEE - 1 1 [facility] OUTPATIEN INC T EMERGENCY 55745 LAILA STARR 1 1 EMERGENCY [facility] T VISIT HIGH/URGE NT SEVERITY [facility] - [facility] T OFFICE [id number] FAMILY MARCK OUTPATIEN 1 1 CARE R H T VISIT ASSOCIATE 25 S MINUTES [facility] - [facility] T OFFICE 08610 ABEL ABEL OUTPATIEN 1 1 TIFFANY MALLORY 45 MINUTES OFFICE 85672 Kandice IRWIN OUTPATIEN 1 1 DC MALLORY 45 MD PSC MINUTES OFFICE 58311 FAMILY MARCK OUTPATIEN 1 1 CARE R H T VISIT ASSOCIATE 25 S MINUTES OFFICE 02149 FAMILY MARCK OUTPATIEN 1 1 CARE R H T VISIT ASSOCIATE 15 S MINUTES OFFICE 26250 FAMILY RONALD J OUTPATIEN 1 1 CARE T VISIT ASSOCIATE 15 S MINUTES OFFICE 25265 NALLELY PANCHO OUTPATIEN 1 1 BYERS & BETTE T VISIT TEMMING 25 MINUTES OFFICE 80989 FAMILY RONALD J OUTPATIEN 1 1 CARE T VISIT ASSOCIATE 25 S MINUTES [facility] T OFFICE 42408 FAMILY MULBERRY OUTPATIEN 1 1 CARE TERRA T VISIT ASSOCIATE 15 S MINUTES OFFICE 15176 FAMILY RONALD J OUTPATIEN 1 1 CARE T VISIT ASSOCIATE 15 S MINUTES [facility] - [facility] T OFFICE 35977 FAMILY MARCK OUTPATIEN 1 1 CARE R H T VISIT ASSOCIATE 15 S MINUTES OFFICE 81843 FAMILY MARCK OUTPATIEN 1 1 CARE R H T VISIT ASSOCIATE 15 S MINUTES OFFICE 75184 NALLELY PANCHO OUTPATIEN 0 0 BYERS & BETTE T VISIT [place] 25 MINUTES OFFICE 24620 PANCHO BROWNING OUTPATIEN 0 0 BYERS & [facility]TE [facility] 25 MINUTES EMERGENCY 07514 [facility] 0 0 [facility] DEPART[facility] INC T VISIT MODERATE SEVERITY [facility] - [facility] T EMERGENCY 06517 LAILA GAMEZ DEPT 0 0 EMERGENCY YONNY VISIT SERVICES O HIGH SEVERITY& ASSOCIATE THREAT S FUNCJ OFFICE 49290 PANCHO BROWNING, OUTPATIEN 0 0 BYERS & CHASE E T VISIT [facility] 25 MINUTES OFFICE 59413 FAMILY MARCK, OUTPATIEN 0 0 CARE R SERJIO T VISIT ASSOCIATE 15 S MINUTES OFFICE 40313 FAMILY MARCK, OUTPATIEN 0 0 CARE R SERJIO T VISIT ASSOCIATE 15 S MINUTES OFFICE 47139 FAMILY MARCK, OUTPATIEN 9 9 CARE R SERJIO T VISIT ASSOCIATE 15 S MINUTES [facility] - [facility] T OFFICE 11595 Law LAINEZ OUTPATIEN 9 9 CARE G T VISIT ASSOCIATE 15 S MINUTES OFFICE 03400 Law LAINEZ OUTPATIEN 9 9 CARE G T VISIT ASSOCIATE 15 S MINUTES [facility] - 9 9 [facility] T OFFICE 82868 FAMILY MARCK, OUTPATIEN 9 9 CARE R SERJIO T VISIT ASSOCIATE 15 S MINUTES OFFICE 03644 PANCHO BROWNING OUTPATIEN 9 9 YBERS & CHASE E T VISIT [place] 25 MINUTES OFFICE 33728 FAMILY MARCK, OUTPATIEN 9 9 CARE R SERJIO T VISIT ASSOCIATE 15 S MINUTES OFFICE 73152 NALLELY TEMM[place], OUTPATIEN 9 9 BYERS & CHASE E T VISIT [place] 25 MINUTES OFFICE 12719 FAMILY MARCK, OUTPATIEN 9 9 CARE R SERJIO T VISIT ASSOCIATE 15 S MINUTES OFFICE 28256 FAMILY MARCK, OUTPATIEN 9 9 CARE R SERJIO T VISIT ASSOCIATE 15 S MINUTES OFFICE 96011 RON BROWNINGMING, OUTPATIEN 9 9 BYERS & CHASE E T VISIT [place] 25 MINUTES OFFICE 03869 FAMILY MARCK, OUTPATIEN 8 8 CARE R SERJIO T VISIT ASSOCIATE 15 S MINUTES OFFICE 28730 FAMILY MARCK, OUTPATIEN 8 8 CARE R SERJIO T VISIT ASSOCIATE 15 S MINUTES OFFICE 85399 NALLELY [place], OUTPATIEN 8 8 BYERS & CHASE E T VISIT [place] 25 MINUTES OFFICE 00847 FAMILY MARCK, OUTPATIEN 8 8 CARE R SERJIO T VISIT ASSOCIATE 15 S MINUTES OFFICE 59326 PANCHO TEMMING, OUTPATIEN 8 8 CHASE Higuera CHASE E T VISIT 25 MINUTES [facility] - 8 8 [facility] T OFFICE 05135 FAMILY FAMILY OUTPATIEN 8 8 CARE CARE T VISIT ASSOCIATE ASSOCIATE 15 S S MINUTES [facility] - 8 8 [facility] T EMERGENCY [id number] ANNALEE 8 8 [facility] DEPARTMEN INC T VISIT MODERATE SEVERITY OFFICE [id number] FAMILY FAMILY OUTPATIEN 8 8 CARE CARE T VISIT ASSOCIATE ASSOCIATE 15 S S MINUTES
--- OUTSIDE RECORDS SUMMARY | 2017-01-12 15:45 | External Medical Summary Rpt ---
Author Author , Organization [employer] Address Unknown Phone Unavailable Care Team Providers Care Divorce Attorney Name Role Phone ROBBY ARVIZU MD, PSC, [...] Unavailable HOBLITZEL OSIEL, Unavailable Unavailable HOBLITZEL OSIEL [facility]available [facility]available [facility], [facility] Un[facility], [facility] TAZ GRE, TAZ GRE Unavailable Unavailable TAZ GRE, TAZ GRE Unavailable Unavailable [facility], Unavailable Unavailable [facility] JAMES CRI, JAMES CRI Unavailable Unavailable LUBBERS ROBIN, LUBBERS Unavailable Unavailable ROBIN ELINOLD TER, Unavailable Unavailable ELINOLD TER ANGIE URBAN MD, Unavailable Unavailable ELENA RICHARDSON MD, JR Unavailable Unavailable F, ZAIRA HERNANDEZ, ELENA F AIDAN ZUNIGA P, Unavailable Unavailable AIDAN ZUNIGA P YURY FARZAD, YURY Unavailable Unavailable FARZAD MULBERRY TERRA, Unavailable Unavailable [facility] Unavailable [facility]available [facility], [facility] MARCK R H, Unavailable Unavailable MARCK R H MARCK, R SERJIO, Unavailable Unavailable MARCK, R SERJIO ABEL TIFFANY, Unavailable Unavailable ABEL TIFFANY ABEL TIFFANY, Unavailable Unavailable ABEL TIFFANY [facility] Unavailable [facility], [facility], Unavailable Unavailable [facility] Unavailable Unavailable OF [facility], [facility] YG TIFFANY, YG Unavailable Unavailable [facility] Unavailable [facility] KENNETH HEA, Unavailable Unavailable KENNETH HEA TARA CHR, TARA CHR Unavailable Unavailable TARA CHR, TARA CHR Unavailable Unavailable SCHULSTAD VALERIE, Unavailable Unavailable [facility] VALERIE ZAPATA CHR, ZAPATA CHR Unavailable Unavailable SOKAN BAB, SOKAN BAB Unavailable Unavailable SOKAN, YONNY O, Unavailable Unavailable SOKAN, YONNY O [facility], Unavailable Unavailable [facility] Unavailable Unavailable MINGLE OPERATOR ST, [facility] MINGLE OPERATOR [facility] Unavailable Unavailable [facility], [facility] Unavailable Unavailable PHYSICIANS, [facility] JEREMI, Unavailable Unavailable . [facility] JEREMI PANCHO JUDGE Unavailable Unavailable CHASE MEANS, [...] Unavailable [facility] Unavailable Unavailable [facility], [facility] ALDAIR RAE, ALDAIR Unavailable [...] [facility] TIS OF KNEE [id number] RA WITHOUT 05-21-2016 [facility] RHEUMATOID H [facility] RIGHT KNEE CTR [id number] PAIN IN 05-21-2016 ST. RIGHT KNEE [facility] JEREMI G38716 PAIN IN 05-21-2016 ST. LEFT ANKLE [facility] JEREMI M7121 SYNOVIAL 05-21-2016 [facility] CYST H POPLITEAL ORTHOPAEDIC SPACE [facility] CTR RIGHT KNEE T62197 POSTERIOR 05-21-2016 ST. TIBIAL [facility] TENDINITIS JEREMI LEFT LEG R600 LOCALIZED 05-21-2016 [facility] Z471 AFTERCARE 05-21-2016 [facility] JOINT [facility] REPLACEMENT SURGERY V55034 PRESENCE OF 05-21-2016 ST. RIGHT [facility] ARTIFICIAL JEREMI KNEE JOINT M1712 UNILATERAL 04-30-2016 ST. PRIMARY [facility] OSTEOARTHRI JEREMI TIS LEFT KNEE M1990 UNSPECIFIED 04-30-2016 [facility]. [facility] OSTEOARTHRI JEREMI TIS UNSPECIFIED SITE M7752 OTHER 04-30-2016 ST. ENTHESOPATH [facility] Y OF LEFT JEREMI FOOT [id number] STRESS 04-30-2016 ST. FRACTURE LT [facility] TIBIA JEREMI INITIAL ENC FRACTURE Z9889 OTHER 04-30-2016 ST. SPECIFIED [facility] POSTPROCEDU JEREMI [facility] STATES M1711 UNILATERAL 02-29-2016 [facility] PRIMARY H OSTEOARTHRI ORTHOPAEDIC TIS RIGHT CTR KNEE E0590 THYROTOXICO 02-18-2016 ST SIS UNS W/O [facility] THYROTOXIC MED CTR CRISIS/STOR M I10 ESSENTIAL 02-18-2016 ST PRIMARY [facility] HYPERTENSIO MED CTR N [id number] ENCOUNTER 02-15-2016 ST FOR OTHER [facility] PREPROCEDUR [...] ST TREATMENT [facility] NOT CARRIED MED CTR MINGLE OPERATOR OUT FOR ST OTH REASONS Z7901 JAIL 01-10-2016 ST CURRENT USE [facility] OF MED CTR MINGLE OPERATOR ANTICOAGULA ST NTS M172 BILATERAL 01-09-2016 [facility] POST-TRAUMA H TIC ORTHOPAEDIC OSTEOARTHRI CTR TIS OF KNEE B61949 PAIN IN 12-31-2015 ST. LEFT LOWER [facility] LEG JEREMI R609 EDEMA 12-31-2015 ST. UNSPECIFIED [facility] JEREMI P48952 PAIN IN 12-12-2015 ST. LEFT KNEE [facility] JEREMI M797 FIBROMYALGI 12-12-2015 [facility] A H ORTHOPAEDIC CTR M61939 PAIN IN 10-31-2015 ST. RIGHT LEG [facility] JEREMI L77250 PAIN IN 10-31-2015 ST. RIGHT LOWER [facility] LEG JEREMI N3946 MIXED 08-13-2015 ST INCONTINENC [facility] E PHYSICIANS Z1231 ENCOUNTER 08-13-2015 ST SCREENING [facility] MAMMO MALIG [facility] NEOPLASM BREAST D689 COAGULATION 08-09-2015 ST DEFECT [facility] UNSPECIFIED MED CTR MINGLE OPERATOR ST E785 HYPERLIPIDE 08-07-2015 ST MAXINE [facility] UNSPECIFIED PHYSICIANS M542 CERVICALGIA 08-07-2015 ST [facility] PHYSICIANS N951 MENOPAUSAL 08-07-2015 ST AND FEMALE [facility] CLIMACTERIC PHYSICIANS STATES R601 GENERALIZED 08-07-2015 ST EDEMA [facility] PHYSICIANS [id number] STRAIN UNS 05-21-2015 ST. 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 CHRONIC [facility] PAIN JEREMI 31313 OSTEOARTHRO 03-07-2015 ST. SIS UNSPEC [facility] WHETHER JEREMI GEN/LOC LOWER LEG 80574 EFFUSION OF 03-07-2015 . LOWER LEG [facility] JOINT JEREMI 97393 PAIN IN 03-07-2015 . JOINT, [facility] LOWER LEG JEREMI 7242 LUMBAGO 02-26-2015 RUKHSANA QUINTEROS MD,PSC 66545 SWELLING OF 02-16-2015 ST LIMB [facility] MED CTR 2720 PURE 01-04-2015 ST HYPERCHOLES [facility] TEROLEMIA MED [place] [facility] 82774 GENERALIZED 01-04-2015 ST ANXIETY [facility] DISORDER MED CTR [place] [facility] 07168 OTHER ACUTE 01-04-2015 ST PAIN [facility] [facility] 39185 ESOPHAGEAL 01-04-2015 ST REFLUX [facility] MINGLE OPERATOR ST 5641 IRRITABLE 01-04-2015 ST BOWEL [facility] SYNDROME MED CTR MINGLE OPERATOR ST 54853 CHEST PAIN 01-04-2015 ST UNSPECIFIED [facility] MED CTR MINGLE OPERATOR ST 7210 CERVICAL 05-12-2014 RUKHSANA SPONDYLOSIS MAME QUINTEROS MD,PSC MYELOPATHY V5869 LONG-TERM 05-12-2014 RUKHSANA (CURRENT) ALDAIR, USE OF ,PSC OTHER MEDICATIONS 74220 OSTEOARTHRO 12-22-2013 TA[facility] GRE S UNSPEC WHETHER GEN/LOC UNSPEC SITE 7226 DEGENERATIO 12-22-2013 TAZCesar ESPARZA N INTERVERTEB RAL DISC SITE UNSPEC 7231 CERVICALGIA 12-22-2013 TAZ ESPARZA 99227 UNSPECIFIED 12-22-2013 TAZ GRE URINARY INCONTINENC E 7220 DISPLCMT 11-23-2013 NEUROSCIENC CERV E INTERVERT ASSOICATES DISC OF N WITHOUT MYELOPATHY 5589 OTH&UNSPEC 11-10-2013 TA[facility] GRE NONINFECTIO US GASTROENTER ITIS&COLITI S 7295 PAIN IN 11-10-2013 TA[facility] GRE SOFT TISSUES OF LIMB 27899 UNS 11-05-2013 FROILAN GONZÁLEZ GASTRITIS&G ASTRODUODIT IS W/O MENTION HEMORR 33316 DIVERTICULO 11-05-2013 FROILAN GONZÁLEZ SIS OF COLON 00940 NAUSEA WITH 11-05-2013 FROILAN GONZÁLEZ VOMITING 2777 DYSMETABOLI 10-06-2013 TAZ ESPARZA C SYNDROME X 6272 SYMPTOMATIC 10-06-2013 TAZ ISAIAS MENOPAUSAL/ FEMALE CLIMACTERIC STATES 3540 CARPAL 06-15-2013 TAZ ISAIAS TUNNEL SYNDROME 5990 URINARY 06-15-2013 [facility] GRE TRACT INFECTION SITE NOT SPECIFIED 82360 EXOSTOSIS 06-15-2013 TAZ ESPARZA OF UNSPECIFIED SITE 72544 CRAMP OF 04-27-2013 TAZ ISAIAS LIMB V0481 NEED 04-27-2013 TAZ ESPARZA PROPHYLACTI C VACCINATION &INOCULATIO N FLU V700 ROUTINE 01-11-2013 TAZ ESPARZA GENERAL MEDICAL EXAM@HEALTH CARE FACL 3559 MONONEURITI 09-14-2012 ST. S OF [facility] UNSPECIFIED JEREMI SITE 7224 DEGENERATIO 09-14-2012 ST. N OF [facility] CERVICAL JEREMI INTERVERTEB RAL DISC 4739 UNSPECIFIED 08-19-2012 TAZ ESPARZA SINUSITIS 91829 NAUSEA 08-19-2012 TAZ ISAIAS ALONE 0539 HERPES [...] 04-08-2012 [facility] GRE VACCINATION AGAINST STREP PNEUMONE 82428 OTHER 02-02-2012 [facility]OPHAG[facility] OLOGY A 36418 OTHER SPEC 02-02-2012 [facility] GASTRITIS GASTROENTER WITHOUT OLOGY A MENTION HEMORRHAGE 5379 UNSPECIFIED 02-02-2012 ST DISORDER [facility] DUODENUM 7871 HEARTBURN 02-02-2012 [facility] DIGESTIVE DISORDER 96074 DYSPHAGIA 02-02-2012 [place] [address] ABDOMINAL 02-02-2012 [facility] PAIN RIGHT GASTROENTER UPPER OLOGY A QUADRANT 16695 ABDOMINAL 02-02-2012 ST [place] [address] ABDOMINAL 02-02-2012 ST PAIN OTHER [place] [address] CALCU 12-15-2011 DAMICO GALLBLADD GONZÁLEZ W/OTH CHOLECYST W/O MENTION OBST 53604 CHRONIC 12-15-2011 ST CHOLECYSTIT [facility] IS MEDICALCENT ER 5759 UNSPECIFIED 12-03-2011 DAM[facility] DISORDER GONZÁLEZ OF GALLBLADDER 48038 ABDOMINAL 11-26-2011 RADIOLOGY PAIN, ASSOCIATES UNSPECIFIED OF [facility] SITE 96597 DIARRHEA 11-17-2011 [facility] 99174 OTHER&UNSPE 10-30-2011 [facility] C NONSPECIFIC IMMUNOLOGIC AL FINDINGS 2809 UNSPECIFIED 09-30-2011 [facility] IRON DEFICIENCY ANEMIA 4779 ALLERGIC 09-15-2011 [facility] RHINITIS CAUSE UNSPECIFIED 55416 NODULAR 08-08-2011 [facility] LYMPHOMA UNSPEC SITE XTRANOD&CHENCHO ID ORGN 50702 OTH MALIG 08-06-2011 [facility] LYMPHOMAS ASSOCIATES UNS SITE OF [facility] XTRANOD&CHENCHO ID ORGN 23698 LEUKOCYTOSI 08-06-2011 RADIOLOGY S ASSOCIATES UNSPECIFIED OF [facility] 7856 ENLARGEMENT 07-31-2011 [facility] OF LYMPH NODES 20225 SPONDYLOSIS 07-14-2011 ST. UNSPEC [place] SITE W/O JEREMI MENTION MYELOPATHY 14498 EFFUSION OF 06-26-2011 [place] [place] JOINT, SITE UNSPECIFIED 82184 PAIN IN 06-26-2011 [facility] JOINT, SITE UNSPECIFIED 7804 DIZZINESS 05-05-2011 [place] [address] OBESITY, 01-24-2011 ST UNSPECIFIED [facility] MED CTR V727 DIAGNOSTIC 01-24-2011 [facility] [place] [address] PAIN IN 12-27-2010 [facility] SHOULDER REGION 99362 PAIN IN 12-27-2010 [facility] ANKLE AND FOOT V7612 OTHER 12-20-2010 [place] 46784 UNSPECIFIED 12-17-2010 [facility] OTALGIA [facility] 460 ACUTE 12-17-2010 [facility] NASOPHARYNG ASSOCIATES ITIS 7823 EDEMA 12-13-2010 [facility] 6262 EXCESSIVE 12-12-2010 [facility] [place] [facility] [address] SHORTNESS 12-12-2010 [facility] 07444 MEMORY LOSS 12-10-2010 [facility] 2449 UNSPECIFIED 12-05-2010 [facility] HYPOTHYROID INC ISM 27000 DIAB W/O 12-05-2010 [facility] COMP TYPE [facility] II/UNS NOT INC STATED UNCNTRL 2890 POLYCYTHEMI 12-05-2010 [facility] A, [facility] SECONDARY INC 3569 UNSPEC 12-05-2010 [facility] HEREDIT&IDI [facility] OPATHIC INC PERIPHERAL NEUROPATHY 7820 DISTURBANCE 12-03-2010 ABEL OF SKIN [facility] SENSATION 5693 HEMORRHAGE 11-26-2010 C HAIR OF RECTUM DC AND ANUS PSC 58550 ABDOMINAL 11-26-2010 C HAIR PAIN RIGHT DC LOWER PSC QUADRANT 39359 ABDOMINAL 11-26-2010 C HAIR PAIN, LEFT LUKASSTMARNIE LOWER PSC QUADRANT 7234 BRACHIAL 11-18-2010 [facility]ARE NEURITIS OR ASSOCIATES RADICULITIS NOS 6268 OTH D/O 11-14-2010 [facility] MENSTRUATIO [facility] N&OTH ABN BLEED FE GNT TRACT 13503 OTHER 10-21-2010 [facility] MALAISE AND [facility] FATIGUE 7239 UNSPEC 10-11-2010 [facility] MUSCULOSKEL [facility] D/O&SYMPTOM S REFERABLE NECK 6929 CONTACT 10-01-2010 [facility] DERMATITIS[facility] OTHER ECZ[place] DUE UNSPEC CAUSE 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[facility] 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 31753 ENTHESOPATH 12-13-2009 KENNETH BROWNING & UNSPECIFIED TEMMING SITE 8489 UNSPECIFIED 10-08-2009 [facility] SITE OF ASSOCIATES SPRAIN AND STRAIN 62702 ACUTE 07-25-2009 [facility] SEROUS [facility] OTITIS MEDIA 7931 NONSPEC 07-20-2009 [facility] OTH EXAM INC BODY STRUCT LUNG FIELD 490 BRONCHITIS 07-13-2009 [facility] NOT [facility]OCIATES SPECIFIED ACUTE OR CHRONIC 7850 UNSPECIFIED 06-29-2009 [facility] PROF SERV 4660 ACUTE 06-19-2009 [facility] BRONCHITIS [facility] 7243 SCIATICA 03-28-2009 [facility] 23294 OTHER 05-04-2008 [facility] INJURY OF ASSOCIATES CHEST WALL 3829 UNSPECIFIED 03-06-2008 [facility] OTITIS [facility] MEDIA 13537 UNSPECIFIED 12-02-2007 CHASE DELEON OSTEOPOROSI S 41214 CLOSED 10-11-2007 RESPIRATORY FRACTURE OF METATARSAL [facility] BONE INC E8889 UNSPECIFIED 09-25-2007 [facility] 41180 SPRAIN AND 09-24-2007 [facility] STRAIN OF MEM [...] 03 1 60 30 72 SN Ac [place] 78 -0 -0 .0 64 ID ti [...] 01 90 30 TO 72 SN Ac [place] 78 -2 -2 .0 TA 06 ID [...] 00 90 30 TO 72 SN Ac [place] 78 -2 -3 .0 TA 06 ID [...] 02 90 30 TO 71 SN Ac [place] 78 -2 -0 .0 TA 26 ID [...] 01 90 30 TO 71 SN Ac [place] 78 -2 -0 .0 TA 26 ID [...] 00 90 30 TO 71 SN Ac [place] 78 -2 -0 .0 TA 26 ID [...] DOC NO S RSN GVN INFLUENZA G8482 [facility] 7 [facility] IMMUNIZAT ION PHYSICIAN ADMIN/PRE S VIOUSLY RECEIVED DEPRESSIO G8432 [facility] N SCR NOT 7 [facility] DOCUMENTE PHYSICIAN D REASON S NOT GIVEN INJECTION J1040 [facility] 6 LTH LTH METHYLPRE ORTHOPAED ORTHOPAED DNISOLONE IC CTR IC CTR ACETATE 80 MG WALKING L4361 [facility] BOOT 6 LTH LTH PNEUMATIC ORTHOPAED ORTHOPAED AND OR IC CTR IC CTR VACUUM PREFAB ARTHROCEN 32195 [facility] TESIS 6 LTH LTH ASPIR&/IN ORTHOPAED ORTHOPAED J MAJOR IC CTR IC CTR JT/BURSA W/O US RADEX 33457 [facility]Y [facility] 6 FARZAD COMPLETE ASSOCIATE MINIMUM 3 S OF NOTH VIEWS RADIOLOGI 72342 [facility]Y [place] [address] FARZAD EXAMINATI ASSOCIATE ON KNEE 3 S OF NOTH VIEWS RADEX 05130 [facility] 6 [facility] COMPLETE JEREMI JEREMI MINIMUM 3 VIEWS RADIOLOGI [address] EXAMINATI JEREMI JEREMI ON KNEE [address] VIEWS RADEX [address] COMPLETE JEREMI JEREMI MINIMUM 3 VIEWS RADEX 42211 [facility] ANKLE 6 LTH LTH COMPLETE ORTHOPAED ORTHOPAED MINIMUM 3 IC CTR IC CTR VIEWS ANKLE L1902 [facility] ORTH 6 LTH LTH ANKLE ORTHOPAED ORTHOPAED GAUNT/SIM IC CTR IC CTR PREFAB OFF-THE-S HELF PHYS CERT G0180 [facility] MCR-COVR 6 LTH LTH MARLYN HLTH ORTHOPAED ORTHOPAED SRVC PER IC CTR IC CTR CERT PRD RADIOLOGI [address] EXAMINATI JEREMI JEREMI ON KNEE 3 VIEWS WALKER E0143 [facility] 6 STONE STONE WHEELED MEDICAL MEDICAL ADJUSTABL SVCS SV[place] [address] ST KENNETH SURG 6 [facility] SCOTT PATHOLOGY MED CTR GROSS&GONZÁLEZ ROSCOPIC EXAM RADIOLOGI 07338 RADIOLOGY [facility] C 6 SHAZIA EXAMINATI ASSOCIATE ON KNEE S OF NOTH 1/2 VIEWS ARTHRP 90724 [facility] KNE 6 LTH LTH CONDYLE&P ORTHOPAED ORTHOPAED LATU IC CTR IC CTR MEDIAL&LA T COMPARTME NTS ECG [address]0224 [facility] ROUTINE 6 [facility] ECG MED CTR W/LEAST 12 LDS I&R ONLY DRUG TST G0477 ST ST PRESUMP;C 6 [facility] DE PBL BEING READ DC PHYSICIAN PHYSICIAN OPT OBV S S ONLY PRESSURIZ 07903 ST ED/NONPRE 6 [facility] DE SSURIZED MED CTR MED CTR INHALATIO MINGLE OPERATOR ST MINGLE OPERATOR ST N TREATMENT BLOOD [address] TYPING 6 [facility] DE SEROLOGIC MED CTR MED CTR ABO MINGLE OPERATOR ST MINGLE OPERATOR ST ARTHROCEN 35973 [facility] TESIS 6 LTH LTH ASPIR&/IN ORTHOPAED ORTHOPAED J MAJOR IC CTR IC CTR JT/BURSA W/O US INJECTION J1040 [facility] 6 LTH LTH METHYLPRE ORTHOPAED ORTHOPAED DNISOLONE IC CTR IC CTR ACETATE 80 MG DUP-SCAN 58813 [facility] ROBIN MED CTR UNILATERA L/LIMITED STUDY INJECTION J1040 [facility] BURGOS [facility] 6 LTH EMERGENCY METHYLPRE ORTHOPAED DNISOLONE IC CTR AMBULANCE ACETATE S 80 MG ARTHROCEN 30758 [facility] TESIS 6 LTH LTH ASPIR&/IN ORTHOPAED ORTHOPAED J MAJOR IC CTR IC CTR JT/BURSA W/O US RADIOLOGI [address] C 6 SANT[facility] DE EXAMINATI [...] CTR IC CTR PREFAB CUSTOM FIT DUP-SCAN 39538 ST DANYA BAR XTR VEINS 6 [facility] MED CTR UNILATERA L/LIMITED STUDY PROTHROMB [address] IN TIME 5 [facility] MED CTR MED CTR MINGLE OPERATOR ST MINGLE OPERATOR ST ECG [address] ROUTINE 5 [facility] ECG MED CTR MED CTR W/LEAST MINGLE OPERATOR ST MINGLE OPERATOR ST 12 LDS TRCG ONLY W/O I&R THROMBOPL 25267 ST KELSEY TERAR ASTIN 5 [facility] TIME MED CTR PARTIAL MINGLE OPERATOR ST PLASMA/WH OLE BLOOD BLOOD [address] TYPING 5 [facility] DE SEROLOGIC MED CTR MED CTR RH (D) MINGLE OPERATOR ST MINGLE OPERATOR ST CUL [address] PRSMPTV 5 [facility] DE PTHGNC MED CTR MED CTR ORGANISM MINGLE OPERATOR ST MINGLE OPERATOR ST SCRN W/COLONY ESTIMJ BLOOD [address] COUNT 5 [facility] DE COMPLETE MED CTR MED CTR AUTO&AUTO MINGLE OPERATOR ST MINGLE OPERATOR ST DIFRNTL WBC ECG [address] ST MCDANNOLD ROUTINE [address] [facility] [address] ECG MED CTR W/LEAST 12 LDS I&R ONLY ANTIBODY [address] SCREEN 5 [facility] DE RBC EACH MED CTR MED CTR SERUM MINGLE OPERATOR ST MINGLE OPERATOR ST TECHNIQUE BLOOD [address] TYPING 5 [facility] DE SEROLOGIC MED CTR MED CTR ABO MINGLE OPERATOR ST MINGLE OPERATOR ST URNLS DIP [address] 5 [facility] DE STICK/TAB MED CTR MED CTR LET RGNT MINGLE OPERATOR ST MINGLE OPERATOR ST AUTO W/O MICROSCOP Y BMI DOC G8419 ST ST OUT NML 5 [facility] DE IQRA NO F/U PLN PHYSICIAN PHYSICIAN DOC NO S S RSN GVN INFLUENZA G8482 ST FERNANDEZ 5 S[facility] BAER IMMUNIZAT ION PHYSICIAN ADMIN/PRE S VIOUSLY RECEIVED DEPRESSIO G8432 ST ST N SCR NOT 5 [facility] DE DOCUMENTE PHYSICIAN PHYSICIAN D REASON S S NOT GIVEN RADIOLOGI [address] C 5 [facility] DE EXAMINATI JEREMI JEREMI ON KNEE 3 V[place] [address] JT LOWER 5 [facility] DE EXTREM JEREMI JEREMI W/O CONTRAST MATRL THERAPEUT [address] IC 5 [facility] DE PROPHYLAC TIC/DX PHYSICIAN PHYSICIAN INJECTION S S SUBQ/IM INJECTION J1030 ST TAZ GRE 5 [facility] METHYLPRE DNISOLONE PHYSICIAN ACETATE S [address] [facility] GRE 5 [place] METHYLPRE DNISOLONE PHYSICIAN ACETATE S 80 MG INJECTION J1040 [facility] MARYLUTZEL 5 LTH OSIEL METHYLPRE ORTHOPAED DNISOLONE IC CTR ACETATE 80 MG ARTHROCEN 26101 [facility] LEE TESIS 5 LTH OSIEL ASPIR&/IN ORTHOPAED J MAJOR IC CTR JT/BURSA W/O US RADIOLOGI [address] C 5 SANTINO SANTINO EXAMINATI JEREMI JEREMI ON KNEE 3 VIEWS RADEX 03436 RUKHSANA QUINTEROS SPINE 5 KYRA QUINTEROS LUMBOSACR ,PSC AL MINIMUM 4 VIEWS DUP-SCAN 47206 ST BARDGETT, XTR VEINS 5 [facility] JR JAM MED CTR UNILATERA L/LIMITED STUDY THER [address] PROPH/DX 5 S[facility] SANTINO NJX IV MED CTR MED CTR PUSH MINGLE OPERATOR ST MINGLE OPERATOR ST SINGLE/1S T SBST/DRUG ECG [address]759 ST ZAPATA CHR ROUTINE 5 [facility] ECG MED CTR W/LEAST 12 LDS I&R ONLY RADIOLOGI [address] C 5 [facility] SANTINO EXAMINATI MED CTR MED CTR ON CHEST MINGLE OPERATOR ST MINGLE OPERATOR ST SING[place] FRONTAL RADIOLOGI 74622 PROSCAN YG C [address] EXAMINA ON KNEE 1/2 VIEWS ECG 07596 RUKHSANA QUINTEROS ROUTINE 4 KYRA QUINTEROS ECG ,PSC W/LEAST 12 LDS W/I&R INJECTION J1885 TAZ GRE TZA GRE 4 KETOROLAC TROMETHAM INE PER 15 MG THERAPEUT 94285 TAZ GRE TAZ GRE IC 4 PROPHYLAC TIC/DX INJECTION SUBQ/IM INJECTION J1885 NEUROSCIE NEUROSCIE 4 NCE NCE KETOROLAC ASSOICATE ASSOICATE S OF N S OF N TROMETHAM INE PER 15 MG INJECTION J1030 TAZ GRE TAZ GRE 4 METHYLPRE DNISOLONE ACETATE 40 MG THERAPEUT 42455 TAZ GRE TAZ GRE IC 4 PROPHYLAC TIC/DX INJECTION SUBQ/IM INJECTION J1040 TAZ GRE TAZ GRE 4 METHYLPRE DNISOLONE ACETATE 80 MG ECG 61956 FROILAN MCGOVERN ROUTINE 4 GONZÁLEZ GONZÁLEZ ECG W/LEAST 12 LDS I&R ONLY THERAPEUT 10129 TAZ GRE TAZ GRE IC 4 PROPHYLAC TIC/DX INJECTION SUBQ/IM INJECTION J1885 TAZ GRE TAZ GRE 4 KETOROLAC TROMETHAM INE PER 15 MG THERAPEUT 34956 TAZ GRE TAZ GRE IC 3 PROPHYLAC TIC/DX INJECTION SUBQ/IM THERAPEUT 10109 TAZ GRE TAZ GRE IC 3 PROPHYLAC TIC/DX INJECTION SUBQ/IM THERAPEUT 90268 TAZ GRE TAZ GRE IC 3 PROPHYLAC TIC/DX INJECTION SUBQ/IM INJECTION J1040 TAZ GRE TAZ GRE 3 METHYLPRE DNISOLONE ACETATE 80 MG INJECTION J1030 TAZ GRE TAZ GRE 3 METHYLPRE DNISOLONE ACETATE 40 MG RADIOLOGI 96337 ANA ROSA AVILES 3 EXAMINATI ON CHEST SINGLE VIEW FRONTAL MRI [address] SPINAL 3 SANTINO SANTINO CANAL JEREMI JEREMI THORACIC W/O CONTRAST MATRL MRI [address] SPINAL 3 [facility] CANAL JEREMI JEREMI CERVICAL W/O CONTRAST MATRL INJECTION J1030 TAZ GRE TAZ GRE 3 METHYLPRE DNISOLONE ACETATE 40 MG THERAPEUT 19763 TAZ GRE TAZ GRE IC 3 PROPHYLAC TIC/DX INJECTION SUBQ/IM INJECTION J1040 TAZ GRE DECLAN 3 DEN METHYLPRE DNISOLONE ACETATE 80 MG THERAPEUT 53537 TAZ GRE TAZ GRE IC 2 PROPHYLAC TIC/DX INJECTION SUBQ/IM INJECTION J1885 TAZ GRE TAZ GRE 2 KETOROLAC TROMETHAM INE PER 15 MG INJECTION J1885 UTTER MELCHOR UTTER MELCHOR 2 KETOROLAC TROMETHAM INE PER 15 MG THERAPEUT 64514 UTTER MELCHOR UTTER MELCHOR IC 2 PROPHYLAC TIC/DX INJECTION SUBQ/IM INJECTION J1040 UTTER MELCHOR UTTER MELCHOR 2 METHYLPRE DNISOLONE ACETATE 80 MG THERAPEUT 60572 TAZ GRE TAZ GRE IC 2 PROPHYLAC TIC/DX INJECTION SUBQ/IM INJECTION J1885 TAZ GRE TZA GRE 2 KETOROLAC TROMETHAM INE PER [address] [place] [address] SURG 2 [facility] PATHOLOGY MEDICALCE MEDICALCE GROSS&GONZÁLEZ NTER NTER ROSCOPIC [place]AM [place] FLX 23216 ANGIE ADAMS W/RMVL 2 WILMAR URBAN MD OF TUMOR POLYP LESION SNARE TQ THERAPEUT 61939 TAZ GRE TAZ GRE IC 2 PROPHYLAC TIC/DX INJECTION SUBQ/IM INJECTION J1885 TAZ GRE TAZ GRE 2 KETOROLAC TROMETHAM [place] [address] [facility] SURG 2 N [facility] PATHOLOGY GASTROENT EROLOGY A GROSS&GONZÁLEZ ROSCOPIC EXAM COLLECTIO [address] ST [address] N VENOUS 2 [facility] BLOOD VENIPUNCT MEDICALCE MEDICALCE URE NTER NTER ANTINUCLE [address] AR 2 [facility] ANTIBODIE S NADEGE MEDICALCE MEDICALCE NTER NTER BLOOD [address] COUNT 2 [facility] COMPLETE AUTO&AUTO MEDICALCE MEDICALCE DIFRNTL NTER NTER WBC EGD 52006 ANGIE ADAMS TRANSORAL 2 WILMAR URBAN MD BIOPSY SINGLE/MU LTIPLE DILATION 62962 ANGIE ADAMS ESOPH 2 WILMAR URBAN MD UNGUIDED SOUND/DALLAS GIE 1/MULT PASS ANES [address] INTRAPERI 2 [facility] TONEAL UPPER MEDICALCE MEDICALCE ABDOMEN NTER NTER W/LAPS NOS BLOOD [address] COUNT 2 [facility] COMPLETE AUTO&AUTO MEDICALCE MEDICALCE DIFRNTL NTER [...] NTER INJECTION J2270 [facility] 2 [facility] 10 MEDICALCE MEDICALCE MG NTER NTER LAPAROSCO [address] PY SURG 2 [facility] CHOLECYST ECTOMY MEDICALCE MEDICALCE NTER NTER INJECTION J1100 [facility] DEXAM[facility] SONE [facility]ICAL[facility] MEDICALCE SODIUM NTER NTER PHOSPHATE [address] IN[address] [facility] SUCCINYLC HOLINE MEDICALCE MEDICALCE CHLORIDE NTER NTER UP TO [address] IN[address] [facility] DIMEN[facility]DR INATE UP MEDICALCE MEDICALCE TO 50 MG NTER NTER INJ J1720 [facility] ST HYDROCORT 2 [facility] ISONE SODIUM MEDICALCE MEDICALCE SUCCINATE NTER NTER TO [address] IN[address] [facility] ONDANSETR ON HCL MEDICALCE MEDICALCE PER 1 [place] [address] SURG 2 [facility] PATHOLOGY MEDICALCE MEDICALCE GROSS&GONZÁLEZ NTER NTER ROSCOPIC EXAM INJECTION J2710 [facility] NEOSTIGMI NE MEDICALCE MEDICALCE METHYLSUL NTER NTER FATE UP TO 0.[address] IN[address] FENTANYL 2 [facility] CITRATE 0.1 MG MEDICALCE MEDICALCE NTER NTER RADIOLOGI [address] C EXAM 2 [facility] CHEST 2 VIEWS MEDICALCE MEDICALCE FRONTAL&L NTER NTER ATERAL INJECTION J2405 [facility] ONDANSETR ON HCL MEDICALCE MEDICALCE PER 1 MG NTER NTER COLLECTIO [address] N VENOUS 2 [facility] BLOOD VENIPUNCT MEDICALCE MEDICALCE URE NTER NTER HEPATIC [address] FUNCTION 2 SANTINO SANTINO PANEL MEDICALCE MEDICALCE NTER NTER THERAPEUT [address] IC 2 SANTINO SANTINO PROPHYLAC TIC/DX MEDICALCE MEDICALCE INJECTION NTER NTER SUBQ/IM INJECTION J2270 ST ST MORPHINE 2 [facility] SULFATE UP TO 10 [place] [address] ABDOMINAL 2 [facility] REAL TIME MEDICALCE MEDICALCE W/IMAGE NTER NTER LIMITED BLOOD [address] COUNT 2 [facility] COMPLETE AUTO&AUTO MEDICALCE MEDICALCE DIFRNTL NTER NTER WBC TECHNETIU A[address] [facility] M TC-99M 2 [facility] MEBROFENI JEREMI JEREMI N DX UP TO [address] 2 [facility] SINCALIDE JEREMI JEREMI 5 MICROGRAM S INFUSION J70[address] NORMAL 2 [facility] SALINE JEREMI JEREMI SOLUTION [address] SYST 2 [facility] IMAG INC JEREMI JEREMI GB W/PHARMA INTERVENJ ECG 70595 ZAPATA CHR ZAPATA CHR ROUTINE 2 ECG W/LEAST 12 LDS I&R ONLY INJECTION J1040 TAZ GRE TAZ GRE 2 METHYLPRE DNISOLONE ACETATE 80 MG THERAPEUT 39812 TAZ GRE TAZ GRE IC 2 PROPHYLAC TIC/DX INJECTION SUBQ/IM INJECTION J1030 TAZ GRE TAZ GRE 2 METHYLPRE DNISOLONE ACETATE [address] 300-399 2 SANTINO SANTINO MG/ML IODINE MEDICALCE MEDICALCE [place] [address] ABDOMEN & 2 SANTINO SANTINO PELVIS W/CONTRAS MEDICALCE MEDICALCE T NTER NTER MATERIAL THERAPEUT 23676 TAZ GRE TAZ GRE IC 2 PROPHYLAC TIC/DX INJECTION SUBQ/IM ECG 78557 TAZ GRE TAZ GRE ROUTINE 2 ECG W/LEAST 12 LDS W/I&R THERAPEUT 46015 TAZ GRE TAZ GRE IC 2 PROPHYLAC TIC/DX INJECTION SUBQ/IM INJECTION J0696 TAZ GRE TAZ GRE 2 CEFTRIAXO NE SODIUM PER 250 MG LOCM Q9967 TARA CHR TARA CHR 300-399 1 MG/ML IODINE CONCENTRA TION PER ML CT SOFT 83436 RADIOLOGY DARDINGER TISSUE 1 SMITHA NECK ASSOCIATE W/CONTRAS S OF NOTH T MATERIAL CT THORAX 80650 RADIOLOGY DARDINGER 1 SMITHA W/CONTRAS ASSOCIATE T S OF NOTH MATERIAL RADIOLOGI [address] C EXAM 1 [facility] CHEST 2 JEREMI JEREMI VIEWS FRONTAL&L ATERAL RADEX 32178 [facility] HAND 2 1 ARTHRITIS ARTHRITIS VIEWS AND AND RHEUM RHEUM NONEMERGE A0100 LKLP BENNETTS NCY 1 [facility] TRANSP[facility] TRANSPORT ACTION ATION CO ATION; L TAXI BASIC [address] METABOLIC 1 [facility] CALCIUM MEDICAL[place] [address] AMYLASE 1 SANTINO SANTINO MEDICALCE MEDICALCE NTER NTER NONEMERGE A0100 LKLP BENNETTS NCY 1 [facility] TRANSPORT TRANSPORT [place]; [place] [address] TRIIODOTH 1 [facility] YRONINE T3 FREE MEDICALCE MEDICALCE NTER NTER BLOOD [address] COUNT 1 [facility] COM[facility] AUTOMATED MEDICALCE MEDICALCE NTER NTER CYANOCOBA [address] SERINA 1 SANTINO DE VITAMIN B-12 [place] [address] LIPASE 1 SANTINO DE MEDICALCE MEDICALCE NTER NTER THERAPEUT 84804 ST TAZ GRE IC 1 SANTINO PROPHYLAC TIC/DX PHYSICIAN INJECTION S SUBQ/IM INJECTION J1885 ST TAZ GRE 1 SANTINO KETOROLAC PHYSICIAN TROMETHAM S INE PER 15 MG NONEMERGE A0100 LKLP BENNETTS NCY 1 COMM[facility] TRANSPORT TRANSPORT ACTION ATION CO ATION; L TAXI COLLECTIO 19561 ST ST N VENOUS 1 SANTINO SANTINO BLOOD VENIPUNCT MEDICALCE MEDICALCE URE NTER NTER INJECTION J1030 PANCHO BROWNING 1 [facility]ERS [facility] BETTE METHYLPRE TEMMING DNISOLONE ACETATE 40 MG INJECTION J1020 PANCHO BROWNING 1 [facility] BETTE METHYLPRE TEMMING DNISOLONE ACETATE 20 MG INJECTION J3420 FAMILY MARCK VIT B-12 1 CARE R H ASSOCIATE CYANOCOBA S SERINA TO 1000 MCG THERAPEUT 96765 [facility] CARE R H PROPHYLAC ASSOCIATE TIC/DX S INJECTION SUBQ/IM COMPUTER- 98216 [facility] AIDED 1 MEDICAL YOHANNES DETECTION IMAGING ASS SCREENING MAMMOGRAP HY SCREENING G0202 [facility] 1 MEDICAL YOHANNES MAMMOGRAP IMAGING HY CARLOS ASS INCL CAD WHEN PERFORMD BLOOD 16580 FAMILY FAMILY COUNT 1 CARE CARE COMPLETE ASSOCIATE ASSOCIATE AUTO&AUTO S S DIFRNTL WBC INJECTION J3420 [facility] MARCK VIT B-12 1 CARE R H ASSOCIATE CYANOCOBA S SERINA TO 1000 MCG THERAPEUT 38822 [facility] MARCK IC 1 CARE R H PROPHYLAC ASSOCIATE TIC/DX S INJECTION SUBQ/IM RADIOLOGI 35121 [place] JIN C EXAM 1 MEDICAL YOHANNES CHEST 2 IMAGING VIEWS ASS FRONTAL&L ATERAL COMPREHEN 64047 ANNALEE MANTILLA SIVE 1 [facility] [place] [address] WOMEN'S BARRIE TRANSVAGI 1 [facility] ELIF REDDY [address] ANNALEE MANTILLA IC 1 [facility] PEPTIDE INC INC BLOOD 52813 ANNALEE MANTILLA COUNT 1 [facility] COMPLETE INC INC AUTO&AUTO DIFRNTL WBC MRI BRAIN 39064 [facility] EL[facility]IN BRAIN 1 MEDICAL YOHANNES STEM W/O IMAGING CONTRAST ASS MATERIAL COLLECTIO 93594 ANNALEE MANTILLA N VENOUS 1 [facility] [place] [address] ANNALEE MANTILLA FOLIC 1 [facility] ACID INC INC SERUM COMPREHEN 18481 ANNALEE MANTILLA SIVE 1 [facility] [address] ANNALEE MANTILLA THYROXINE 1 [facility] [place] [place] [address] ANNALEE MANTILLA THYROID 1 [facility] STIMULATI INC INC NG HORMONE TSH BLOOD 19186 ANNALEE MANTILLA COUNT 1 [facility] COMPLETE INC INC AUTO&AUTO DIFRNTL WBC HEMOGLOBI 67623 ANNALEE MANTILLA N 1 [facility] GLYCOSYLA INC INC SHIRLENE A1C LIPID 64902 ANNALEE MANTILLA PANEL 1 [facility] INC INC PROTEIN 45083 ANNALEE MANTILLA ELECTROPH 1 [facility] ORETIC INC INC FRACTJ&[place] [address] ANNALEE MANTILLA THIAMINE- 1 [facility] VITAMIN INC INC B-1 CYANOCOBA 38594 ANNALEE MANTILLA SERINA 1 [facility] VITAMIN INC INC B-12 NDL EMG 4 88472 COLTEN ABEL XTR W/WO 1 TIFFANY ALLEN RELATED PARASPINA L AREAS NRV CNDJ 15695 COLTEN ABEL AMPLT&LAT 1 TIFFANY ALLEN ENCY EA NRV MOTOR W/F-WAVE STD NRV CNDJ 50297 ABEL ABEL AMPLITUDE 1 TIFFANY TIFFANY & LATENCY EACH NERVE SENSORY BLOOD 18926 FAMILY FAMILY COUNT 1 CARE CARE COMPLETE ASSOCIATE ASSOCIATE AUTO&AUTO S S DIFRNTL WBC BLOOD 95274 [facility] COUNT 1 [facility] COMPLETE AUTOMATED SEDIMENTA 17104 [facility] TION RATE 1 [facility] RBC AUTOMATED HEPATIC 85462 [facility] FUNCTION 1 [facility] PANEL COLLECTIO 93215 [facility] N VENOUS 1 [facility] BLOOD VENIPUNCT URE MRI 62249 [place] JIN SPINAL 1 MEDICAL YOHANNES CANAL IMAGING CERVICAL ASS W/O CONTRAST MATRL RADEX 58737 [place] JIN SPINE 1 MEDICAL YOHANNES CERVICAL IMAGING 4 OR 5 ASS VIEWS RADEX 02339 ANNALEE MANTILLA SPINE 1 [facility] CERVICAL INC INC 6 OR MORE VIEWS IIV3 32519 FAMILY RONALD Foy VACCINE 0 CARE SPLIT ASSOCIATE VIRUS 0.5 S ML DOSAGE IM USE ADMINISTR G0008 FAMILY RONALD Foy ATION OF 0 CARE INFLUENZA ASSOCIATE VIRUS S VACCINE HEPATIC 78024 [facility] FUNCTION 0 [facility] PANEL BLOOD 37365 [facility] COUNT 0 [facility] COMPLETE AUTOMATED COLLECTIO 30147 [facility] N VENOUS 0 [facility] BLOOD VENIPUNCT URE SEDIMENTA 04189 [facility] TION RATE 0 [facility] RBC AUTOMATED COLLECTIO 28795 [facility] N VENOUS 0 [facility] BLOOD VENIPUNCT URE INJECTION J1030 NALLELY TEMMING 0 [facility]ERS [facility] BETTE METHYLPRE TEMMING DNISOLONE ACETATE 40 MG BLOOD 76906 [facility] COUNT 0 [facility] COMPLETE AUTOMATED INJECTION J1040 GIBRANATH, TEMMING 0 BYERS & BETTE METHYLPRE TEMMING DNISOLONE ACETATE 80 MG HEPATIC 93977 [facility] FUNCTION 0 [facility] PANEL CREATININ 30165 [facility] E BLOOD 0 [facility] CREATINE 37397 ANNALEE MANTILLA KINASE 0 [facility] TOTAL INC INC ECG 28663 LAILA GAMEZ, ROUTINE 0 EMERGENCY YONNY ECG SERVICES O W/LEAST 12 LDS [place]OCI[place] [address] ANNALEE MANTILLA TROPONIN 0 [facility] QUANTITAT INC INC BONITA BLOOD 01150 ANNALEE MANTILLA COUNT 0 [facility] COMPLETE INC INC AUTO&AUTO DIFRNTL WBC CREATINE 68089 ANNALEE MANTILLA KINASE MB 0 [facility] FRACTION INC INC ONLY RADEX 42057 TINYKanu JIN, ABDOMEN 1 0 MEDICAL [facility] IMAGING ANTEROPOS ASSOCIATE TERIOR S VIEW RADEX 00340 ANNALEE MANTILLA ABDOMEN 0 [facility] COMPL INC INC W/DCBTS&/ ERC VIEWS BASIC 52044 ANNALEE MANTILLA METABOLIC 0 [facility] PANEL INC INC CALCIUM TOTAL RADIOLOGI 32504 ANNALEE MANTILLA C 0 [facility] EXAMINATI INC INC [place] [address] [facility] UREA 0 [facility] NITROGEN QUANTITAT BONITA BLOOD 63387 [facility] COUNT 0 [facility] COMPLETE AUTO&AUTO DIFRNTL WBC HEPATIC 26202 [facility] FUNCTION 0 [facility] PANEL CREATININ 41834 [facility] E BLOOD 0 [facility] [place] [address] PANCHO BROWNING, GUIDANCE 0 BRAYAN Higuera NEEDLE RONMING PLACEMENT IMG S&I INJECTION J1040 PANCHO BROWNING, 0 BRAYAN Higuera METHYLPRE TEMSARAH DNISOLONE ACETATE 80 MG ARTHROCEN 33940 PANCHO BROWNING TESIS 0 BRAYAN Higuera ASPIR&/IN TEMSARAH J MAJOR JT/BURSA W/O BLOOD 05153 FAMILY MARCK, COUNT 0 CARE R SERJIO COMPLETE ASSOCIATE AUTO&AUTO S DIFRNTL WBC IAADIADOO 32009 FAMILY MARCK, 0 YFN BASSETT STREPTOCO ASSOCIATE CCUS S GROUP A THERAPEUT 71506 FAMILY RAYAT, IC 0 YFN BASSETT PROPHYLAC ASSOCIATE TIC/DX S INJECTION SUBQ/IM INJECTION J1030 FAMILY RAYAT, 0 YFN BASSETT METHYLPRE ASSOCIATE DNISOLONE S ACETATE 40 MG BLOOD 58610 FAMILY MARCK, COUNT 9 YFN BASSETT COMPLETE ASSOCIATE AUTO&AUTO S DIFRNTL WBC CT THORAX 72165 ANNALEE MANTILLA 9 [facility] W/CONTRAS INC INC T MATERIAL 3D 92922 ANNALEE MANTILLA RENDERING 9 [facility] W/INTERP& [place] [address] [facility] UREA 9 [facility] NITROGEN QUANTITAT BONITA COLLECTIO 85798 Law LAINEZ N VENOUS 9 CARE G BLOOD ASSOCIATE VENIPUNCT S URE CREATININ 58311 [facility] E BLOOD 9 [facility] ADMINISTR G0008 Law LAINEZ ATION OF 9 CARE G INFLUENZA ASSOCIATE VIRUS S VACCINE IIV3 47661 Law LAINEZ VACCINE 9 CARE G SPLIT ASSOCIATE VIRUS 0.5 S ML DOSAGE IM USE ECG 66415 ANNALEE MANTILLA ROUTINE 9 [facility] ECG INC INC W/LEAST 12 LDS TRCG ONLY W/O I&R RADIOLOGI 47645 ANNALEE MANTILLA C EXAM 9 [facility] CHEST 2 INC INC VIEWS FRONTAL&L ATERAL BLOOD 51319 FAMILY MARCK, COUNT 9 YFN BASSETT COMPLETE ASSOCIATE AUTO&AUTO S DIFRNTL WBC COMPREHEN 47356 [facility] SIVE 9 [facility] METABOLIC PANEL INJECTION J1030 FAMILY RAYAT, 9 YFN BASSETT METHYLPRE ASSOCIATE DNISOLONE S ACETATE 40 MG THERAPEUT 14808 FAMILY RAYAT, IC 9 YFN BASSETT PROPHYLAC ASSOCIATE TIC/DX S INJECTION SUBQ/IM COLLECTIO 63969 [facility] N VENOUS 9 [facility] BLOOD VENIPUNCT URE BLOOD 82488 [facility] COUNT 9 [facility] COMPLETE AUTOMATED CREATININ 02663 [facility] E BLOOD 9 [facility] HEPATIC 30564 [facility] FUNCTION 9 [facility] PANEL INJECTION J1030 [facility] MARCK, 9 YFN BASSETT METHYLPRE ASSOCIATE DNISOLONE S ACETATE 40 MG THERAPEUT 33742 [facility] MARCK, IC 9 YFN BASSETT PROPHYLAC ASSOCIATE TIC/DX S INJECTION SUBQ/IM RADEX 00731 APNCHO BROWNING, HAND 2 9 BRAYAN Higuera VIEWS TEMMING INJECTION J1030 PANCHO BROWNING, 9 BRAYAN Higuera METHYLPRE TEMMING DNISOLONE ACETATE 40 MG COLLECTIO 41301 [facility] N VENOUS 9 [facility] BLOOD VENIPUNCT URE HEPATIC 73166 [facility] FUNCTION 9 [facility] PANEL BLOOD 43501 [facility] COUNT 9 [facility] COMPLETE AUTOMATED INJECTION J1040 PANCHO BROWNING, 9 MODESTA & CHASE Higuera METHYLPRE TEMMING DNISOLONE ACETATE 80 MG INJECTION J1030 [facility] MARCK, 8 YFN BASSETT METHYLPRE ASSOCIATE DNISOLONE S ACETATE 40 MG DXA BONE 51952 PANCHO DELEON, DENSITY 8 CHASE Higuera STUDY 1/> SITES AXIAL SKEL WALKING L4386 RESPIRATO RESPIRATO BOOT 8 RY RY NON-PNEUM CONSULTAN CONSULTAN ATIC TS INC [place] [address] [facility] 8 YFN COULTER METATARSA ASSOCIATE ASSOCIATE L S S FRACTURE W/O MANIPULAT ION BONE 99220 [place] EFRAIN, &/JOINT 8 MEDICAL AIDAN Alejandre IMAGING IMAGING LIMITED ASSOCIATE AREA S TECHNETIU A9503 ANNALEE Hector TC-99M 8 [facility] MEDRONATE INC INC DX UP TO 30 MCI AMBULANCE A0429 VIOLET VIOLET SERVICE 8 CO CO BLS AMBULANCE AMBULANCE EMERGENCY SERVICE SERVICE TRANSPORT GROUND A0425 VIOLET VIOLET MILEAGE 8 CO CO PER AMBULANCE AMBULANCE STATUTE SERVICE SERVICE MILE RADEX 91151 ANNALEE MANTILLA FOOT 8 [facility] COMPLETE INC INC MINIMUM 3 VIEWS RADEX 14457 [facility] ANKLE 8 MEDICAL MEDICAL COMPLETE IMAGING IMAGING MINIMUM 3 ASSOCIATE ASSOCIATE VIEWS S S GROUND A0425 VIOLET VIOLET MILEAGE 8 CO CO PER AMBULANCE AMBULANCE STATUTE SERVICE SERVICE MILE AMBULANCE A0429 VIOLET VIOLET SERVICE 8 CO CO BLS AMBULANCE AMBULANCE EMERGENCY SERVICE SERVICE TRANSPORT Encounters Encounter Start End Date Code Location Performer Type Date OFFICE 45923 [facility] OUTPATIEN 7 7 [facility] VISIT 25 [facility] T VISIT INC [address] ACCESS 6 [facility] 6 [facility] ACC[facility] 6 [facility] ACC[facility] 6 6 [facility] JEREMI OFFICE 67601 [facility] 6 6 MD [facility], T [address] - 6 [facility] - 6 [facility]. ACCESS 6 [facility] [address] ACCESS 6 6 [facility] JEREMI OFFICE 88039 [facility] OUTPATIEN 6 6 [facility] LTH T VISIT ORTHOPAED ORTHOPAED 15 IC CTR IC CTR MINUTES CRITICAL ST. ACCESS 6 6 [facility] JEREMI OFFICE [address] [facility] FERNANDEZ OUTPATIEN 6 6 [facility] KEY[facility] T VISIT 15 PHYSICIAN [address] [facility] - 5 5 [facility] OUTPATIEN MED CTR T MINGLE OPERATOR ST OFFICE [address] ST FERNANDEZ OUTPATIEN 5 5 [facility] KEYUR T VISIT 25 PHYSICIAN MINUTES S OFFICE 11370 [facility] HOBLITZEL OUTPATIEN 5 5 [facility] OSIEL T VISIT ORTHOPAED 15 IC CTR MIN[address] [facility]ICAL [facility] ACCESS 5 [address] [facility] [address] ACCESS 5 [address] [facility] [address] ACCESS 5 5 [facility]ER[facility] OFFICE 70685 [facility] HOBLITZEL OUTPATIEN 5 5 [facility] OSIEL T NEW 30 ORTHOPAED MINUTES IC [facility] HOSPITAL ST - 5 5 [facility] OUTPATIEN MED CTR T MINGLE OPERATOR ST EMERGENCY 85000 ST 5 5 [facility] T VISIT MINGLE OPERATOR ST HIGH/URGE NT [facility] CRITICAL ST. ACCESS 3 3 [facility] JEREMI OFFICE 17545 TAZ ISAIAS MCGHEE GRE OUTPATIEN 3 3 T VISIT [address] - OTHER 2 2 [facility] ST - OTHER 2 2 [facility] ST - 2 2 [facility] OUTPATIEN T [facility] EMERGENCY [address]59 ST 2 2 [facility] T VISIT MEDICALCE HIGH/URGE NTER [facility] H[facility]PITAL ST - 2 2 [facility] OUTPATIEN T MEDICALCE NTER CRITICAL ST. ACCESS 2 2 [facility] - 2 2 [facility] OUTPATIEN T MEDICALCE NTER OFFICE 46095 [facility] OUTPATI[facility] 2 2 T VISIT [address] ACCESS 1 1 [facility] JEREMI OFF[facility] 23934 [facility] OUTPATIEN 1 1 ARTHRITIS BETTE T VISIT AND [address] - OTHER 1 1 [facility]ICALCE NTER OFFICE [address]18 ST TAZ GRE OUTPATIEN 1 1 [facility] T VISIT 25 PHYSICIAN MINUTES [facility] ST - OTHER 1 1 [facility] MEDICALCE NTER OFFICE 36769 ST TAZ GRE OUTPATIEN 1 1 S[facility] T NEW 45 MED CTR MINUTES OFFICE 48525 [facility] DUE THO OUTPATIEN 1 1 [facility] T NEW 30 ORTHOPAE MINUTES OFFICE 49912 KUNATH, TEMMING OUTPATIEN 1 1 BYERS & BETTE T VISIT 5 TEMMING MINUTES OFFICE 01878 FAMILY MARCK OUTPATIEN 1 1 CARE R H T VISIT ASSOCIATE 15 S MINUTES HOSPITAL ANNALEE - 1 1 [facility] OUTPATIEN INC T OFFICE 32769 FAMILY MARCK OUTPATIEN 1 1 CARE R H T VISIT ASSOCIATE 15 S MINUTES OFFICE 53525 FAMILY MARCK OUTPATIEN 1 1 CARE R H T VISIT ASSOCIATE 15 S MINUTES EMERGENCY 08686 ANNALEE 1 1 [facility] DEPARTMEN INC T VISIT LOW/MODER SEVERITY [facility]OSPITAL ANNALEE - 1 1 [facility] OUTPATIEN INC T EMERGENCY 52240 LAILA STARR 1 1 EMERGENCY [facility] SERVICES T VISIT HIGH/URGE NT SEVERITY [facility] ANNALEE - 1 1 [facility] OUTPATIEN INC T OFFICE 85526 FAMILY MARCK OUTPATIEN 1 1 CARE R H T VISIT ASSOCIATE 25 S MINUTES HOSPITAL ANNALEE - 1 1 [facility] OUTPATIEN INC T OFFICE 07921 ABEL ABEL OUTPATIEN 1 1 TIFFANY MALLORY 45 MINUTES OFFICE 00919 Kandice IRWIN OUTPATIEN 1 1 DC MALLORY 45 MD PSC MINUTES OFFICE 91677 FAMILY MARCK OUTPATIEN 1 1 CARE R H T VISIT ASSOCIATE 25 S MINUTES OFFICE 01774 FAMILY MARCK OUTPATIEN 1 1 CARE R H T VISIT ASSOCIATE 15 S MINUTES OFFICE 30455 FAMILY RONALD J OUTPATIEN 1 1 CARE T VISIT ASSOCIATE 15 S MINUTES OFFICE 23664 NALLELY PANCHO OUTPATIEN 1 1 [facility] BETTE T VISIT [place] 25 MINUTES OFFICE 44736 FAMILY RONALD J OUTPATIEN 1 1 CARE T VISIT ASSOCIATE 25 S MINUTES HOSPITAL ANNALEE - 1 1 [facility] OUTPATIEN INC T OFFICE 99024 FAMILY MULBERRY OUTPATIEN 1 1 CARE TERRA T VISIT ASSOCIATE 15 S MINUTES OFFICE 13592 FAMILY RONALD J OUTPATIEN 1 1 CARE T VISIT ASSOCIATE 15 S MINUTES HOSPITAL ANNALEE - 1 1 [facility] OUTPATIEN INC T OFFICE 91197 FAMILY MARCK OUTPATIEN 1 1 CARE R H T VISIT ASSOCIATE 15 S MINUTES OFFICE 99750 FAMILY MARCK OUTPATIEN 1 1 CARE R H T VISIT ASSOCIATE 15 S MINUTES OFFICE 87484 NALLELY PANCHO OUTPATIEN 0 0 BYERS & BETTE T VISIT [place] 25 MINUTES OFFICE 31958 PANCHO BROWNING OUTPATIEN 0 0 [facility] 81858 ANNALEE 0 0 [facility] DEPARTMEN INC T VISIT MODERATE SEVERITY HOSPITAL ANNALEE - 0 0 [facility] OUTPATIEN INC T EMERGENCY 68562 LAILA GAMEZ DEPT 0 0 EMERGENCY YONNY VISIT SERVICES O HIGH SEVERITY& ASSOCIATE THREAT S FUNCJ OFFICE 13072 PANCHO BROWNING, OUTPATIEN 0 0 BYERS & CHASE E T VISIT [facility] 25 MINUTES OFFICE 16333 FAMILY MARCK, OUTPATIEN 0 0 CARE R SERJIO T VISIT ASSOCIATE 15 S MINUTES OFFICE 00960 FAMILY MARCK, OUTPATIEN 0 0 CARE R SERJIO T VISIT ASSOCIATE 15 S MINUTES OFFICE 98617 FAMILY MARCK, OUTPATIEN 9 9 CARE R SERJIO T VISIT ASSOCIATE 15 S MINUTES HOSPITAL ANNALEE - 9 9 [facility] OUTPATIEN INC T OFFICE 32308 Law LAINEZ OUTPATIEN 9 9 CARE G T VISIT ASSOCIATE 15 S MINUTES OFFICE 05189 Law LAINEZ OUTPATIEN 9 9 CARE G T VISIT ASSOCIATE 15 S MINUTES HOSPITAL ANNALEE - 9 9 [facility] OUTPATIEN INC T OFFICE 62222 FAMILY MARCK, OUTPATIEN 9 9 CARE R SERJIO T VISIT ASSOCIATE 15 S MINUTES OFFICE 00949 PANCHO BROWNING OUTPATIEN 9 9 BYERS & CHASE E T VISIT [place] 25 MINUTES OFFICE 55033 FAMILY MARCK, OUTPATIEN 9 9 CARE R SERJIO T VISIT ASSOCIATE 15 S MINUTES OFFICE 13515 NALLELY TEMMING, OUTPATIEN 9 9 BYERS & CHASE E T VISIT [place] 25 MINUTES OFFICE 32421 FAMILY MARCK, OUTPATIEN 9 9 CARE R SERJIO T VISIT ASSOCIATE 15 S MINUTES OFFICE 61177 FAMILY MARCK, OUTPATIEN 9 9 CARE R SERJIO T VISIT ASSOCIATE 15 S MINUTES OFFICE 37508 RON BROWNINGMING, OUTPATIEN 9 9 BYERS & CHASE E T VISIT [place] 25 MINUTES OFFICE 20560 FAMILY MARCK, OUTPATIEN 8 8 CARE R SERJIO T VISIT ASSOCIATE 15 S MINUTES OFFICE 75310 FAMILY MARCK, OUTPATIEN 8 8 CARE R SERJIO T VISIT ASSOCIATE 15 S MINUTES OFFICE 18134 NALLELY TEMMING, OUTPATIEN 8 8 BYERS & CHASE E T VISIT [place] 25 MINUTES OFFICE 84027 FAMILY MARCK, OUTPATIEN 8 8 CARE R SERJIO T VISIT ASSOCIATE 15 S MINUTES OFFICE 08012 PANCHO [place], OUTPATIEN 8 8 CHASE Higuera CHASE E T VISIT 25 MINUTES [facility] - [facility] T OFFICE [id number] FAMILY FAMILY OUTPATIEN 8 8 CARE CARE T VISIT ASSOCIATE ASSOCIATE 15 S S MINUTES [facility] - [facility] OUT[facility] T EMERGENCY [id number] [facility] 8 8 [facility] DEPART[facility] T VISIT MODERATE SEVERITY OFFICE [id number] FAMILY FAMILY OUTPATIEN 8 8 CARE CARE T VISIT ASSOCIATE ASSOCIATE 15 S S MINUTES
--- OUTSIDE RECORDS SUMMARY | 2017-01-12 15:47 | External Medical Summary Rpt ---
Demographics Preferred Language Malay Marital Status Unknown Baptism Affiliation Unknown Race Unknown Ethnic Group Unknown Author Author , Organization [facility] Address Unknown Phone Unavailable Purpose Continuity of Care Document - 10-12-1996 through 2016 Immunization Name Date Route CVX Reacti Commen Provid Is Given on t er Refuse d Influe Histor W28221 No nza 2015 ical Quad Inform W/Pres ation - Source Unspec ified Td Intram 9 Histor H196 No (adult 1996 uscula ical ), r Inform adsorb ation ed - Source Unspec ified
--- OUTSIDE RECORDS SUMMARY | 2017-01-12 15:47 | External Medical Summary Rpt ---
Demographics Preferred Language Turkmen Marital Status Unknown Hoahaoism Affiliation Unknown Race Unknown Ethnic Group Unknown Author Author , Organization [facility] Address Unknown Phone Unavailable Purpose Continuity of Care Document - 10-12-1996 through 2016 Immunization Name Date Route CVX Reacti Commen Provid Is Given on t er Refuse d Influe Histor Y97662 No nza 2015 ical Quad Inform W/Pres ation - Source Unspec ified Td Intram 9 Histor H196 No (adult 1996 uscula ical ), r Inform adsorb ation ed - Source Unspec ified
--- OUTSIDE RECORDS SUMMARY | 2017-01-12 15:49 | External Medical Summary Rpt ---
Author Author [employer], [employer] Organization [employer] Address Unknown Phone Unavailable Results TSH Observa Value Referen Units Interpr Notes Date tion ce etation Range Thyrotr 2.240 0.270 - mcIU/mL No No Oct 01 opin 4.200 informa informa 2017 [Units/ tion in tion in 5:44 PM volume] source source in data data Serum or Plasma Free T4 Observa Value Referen Units Interpr Notes Date tion ce etation Range Thyroxi 1.21 0.80 - ng/dL No No Oct 01 ne (T4) 2.00 informa informa 2017 free tion in tion in 5:44 PM [Mass/v source source olume] data data in Serum or Plasma Auto Diff Observa Value Referen Units Interpr Notes Date tion ce etation Range Neutrop 66.5 No % No No Oct 01 hils informa informa informa 2017 [#/volu tion in tion in tion in 5:12 PM me] in source source source Blood data data data by Automat ed count Lymphoc 25.9 No % No No Oct 01 ytes informa informa informa 2017 [#/volu tion in tion in tion in 5:12 PM me] in source source source Blood data data data by Automat ed count Monocyt 4.8 No % No No Oct 01 es informa informa informa 2016 [#/volu tion in tion in tion in 5:12 PM me] in source source source Blood data data data by Automat ed count Eos 1.7 No % No No Oct 01 Percent informa informa informa 2017 tion in tion in tion in 5:12 PM source source source data data data Baso 1.1 No % No No Oct 01 Percent informa informa informa 2017 tion in tion in tion in 5:12 PM source source source data data data Neut# 7.8 1.8 - x10(3)/ High No Feb 22 7.7 mcL informa 2017 tion in 5:12 PM source data Lymph# 3.0 0.6 - x10(3)/ No No Feb 22 4.8 mcL informa informa 2017 tion in tion in 5:12 PM source source data data Dickson# 0.6 0.0 - x10(3)/ No No Feb 22 1.3 mcL informa informa 2017 tion in tion in 5:12 PM source source data data Eos# 0.2 0.0 - x10(3)/ No No Feb 22 0.5 mcL informa informa 2017 tion in tion in 5:12 PM source source data data Baso# 0.1 0.0 - x10(3)/ No No Feb 22 0.2 mcL informa informa 2017 tion in tion in 5:12 PM source source data data CBC Observa Value Referen Units Interpr Notes Date tion ce etation Range LEUKOCY 11.7 4.0 - x10(3)/ High No Feb 22 ERIN 11.0 mcL informa 2017 tion in 5:12 PM source data Erythro 4.97 3.80 - x10(6)/ No No Feb 22 cytes 5.10 mcL informa informa 2016 [#/volu tion in tion in 5:12 PM me] in source source Blood data data by Automat ed count Hemoglo 12.9 12.0 - gm/dL No No Feb 22 bin 15.6 informa informa 2016 [Mass/v tion in tion in 5:12 PM olume] source source in data data Blood Hematoc 40.0 35.7 - % No No Feb 22 rit 45.9 informa informa 2016 [Volume tion in tion in 5:12 PM source source Fractio data data n] of Blood by Automat ed count Erythro 80.4 82.5 - fL Low No Feb 22 cyte 99.8 informa 2016 mean tion in 5:12 PM corpusc source ular data volume [Entiti c volume] by Automat ed count Erythro 26.0 27.0 - pg Low No Feb 22 cyte 34.3 informa 2016 mean tion in 5:12 PM corpusc source ular data hemoglo bin [Entiti c mass] by Automat ed count Erythro 32.3 32.1 - gm/dL No No Oct 01 cyte 35.3 informa informa 2017 mean tion in tion in 5:12 PM corpusc source source ular data data hemoglo bin concent ration [Mass/v olume] by Automat ed count Erythro 16.8 11.5 - % High No Oct 01 cyte 15.0 informa 2017 distrib tion in 5:12 PM ution source width data [Ratio] by Automat ed count Platele 357 144 - x10(3)/ No No Oct 01 ts 423 mcL informa informa 2016 [#/volu tion in tion in 5:12 PM me] in source source Blood data data by Automat ed count MPV 8.5 6.8 - fL No No Oct 01 10.8 informa informa 2017 tion in tion in 5:12 PM source source data data XR ANKLE LEFT AP LATERAL AND OBLIQUE Observa Value Referen Units Interpr Notes Date ti ce etation Range No No No No May 21 016\.br informa informa informa informa 2015 \\.br\L tion in tion in tion in tion in 4:06 PM eft source source source source ankle data data data data series, 3 views:\ .br\\.b r\Histo ry: Chronic pain. No history of acute trauma. Prior compari son study,\ .br\04/11. \.br\\. br\Stab le alignme nt of the ankle mortise . No visuali zed fractur e or\.br\ signifi cant\.b r\degen erative process . Promine nt plantar bony calcane al spur. Depende nt soft\.b r\tissu e edema involvi ng the ankle and foot suspect ed.\.br \\.br\I MPRESSI ON:\.br \Impres marycarmen:\. br\\.br \Suspec t depende nt soft tissue edema of the left lower extremi ty. Stable\ .br\ali gnment of the left ankle. No evidenc e of fractur e.\.br\ XR KNEE RIGHT AP LATERAL AND AXIAL Observa Value Referen Units Interpr Notes Date ti ce etation Range No No No No May 21 016\.br informa informa informa informa 2015 \\.br\R tion in tion in tion in tion in 4:06 PM ight source source source source knee data data data data series, 3 views:\ .br\\.b r\Histo ry: Prior surgery . Compari son with 02/27/20 16 study.\ .br\\.b r\Satis factory alignme nt of tibial and femoral compone nts. No evidenc e of\.br\ fractur e. Minimal anterio r soft tissue swellin g.\.br\ \.br\IM PRESSIO N:\.br\ Impress ion:\.b r\\.br\ Satisfa ctory alignme nt, right total knee arthrop lasty.\ .br\ XR ANKLE LEFT AP LATERAL AND OBLIQUE Observa Value Referen Units Interpr Notes Date tion ce etation Range XR No No No No Apr 30 ANKLE informa informa informa informa 2015 LEFT AP tion in tion in tion in tion in 4:20 PM source source source source LATERAL data data data data AND OBLIQUE 04/30/20 16 4:20 PM\.br\ \.br\HI STORY: Pain Z98.89- Other specifi ed postpro cedural states- ICD-10- CM\.br\ M77.52- Other entheso juan of left foot-IC D-10-CM \.br\M1 9.90-Un specifi ed osteoar thritis , unspeci fied site-IC D-10-CM \.br\\. br\TECH NIQUE: 3 views\. br\\.br \COMPAR EULALIA: er 2015\.b r\\.br\ FINDING S:\.br\ \.br\Th ere is a band of scleros is again seen within the distal tibia, with\.b r\adjac ent\.br \mild periost itis at the tibial metadia physis. This is compati ble with a\.br\h igh-gra de stress fractur e. There is superim posed mild focal\. br\oste oarthri tis.\.b r\Promi nent plantar heel spur is noted.\ .br\\.b r\IMPRE SSION:\ .br\\.b r\1. High-gr mark distal tibial stress fractur e as above with adjacen t mild\.b r\perio stitis\ .br\ XR KNEE LEFT AP LATERAL AND AXIAL Observa Value Referen Units Interpr Notes Date tion ce etation Range \.br\XR No No No No Apr 21 KNEE informa informa informa informa 2015 LEFT AP tion in tion in tion in tion in 4:20 PM source source source source LATERAL data data data data AND AXIAL 04/30/20 16 4:20 PM\.br\ \.br\HI STORY: Z98.89- Other specifi ed postpro cedural states- ICD-10- CM\.br\ M77.52- Other entheso juan of left foot-IC D-10-CM \.br\M1 9.90-Un specifi ed osteoar thritis , unspeci fied site-IC D-10-CM .\.br\\ .br\\.b r\\.br\ COMPARE : December 12, 2015\.b r\\.br\ FINDING S:\.br\ \.br\Th ere is moderat e osteoar thritis in all 3 compart ments of the knee stable\ .br\fro m\.br\p rior study with moderat e medial compart ment joint space narrowi ng. Less\.b r\sever e\.br\l ateral and patello femoral joint space narrowi ng with associa true spurrin g\.br\p resent. There is a suprapa tellar joint effusio n.\.br\ \.br\Th ere is no signifi cant change from prior\. br\\.br \IMPRES MARYCARMEN:\. br\\.br \Mild to moderat e tricomp artment al osteoar thritis stable\ .br\ XR ANKLE LEFT AP LATERAL AND OBLIQUE Observa Value Referen Units Interpr Notes Date tion ce etation Range \.br\LE No No No No Sep 7 FT informa informa informa informa 2015 ANKLE 3 tion in tion in tion in tion in 3:19 PM VIEWS, source source source source data data data data 6 3:45 PM\.br\ \.br\IN DICATIO NS: Entheso juan of the LEFT foot\.b r\\.br\ FINDING S: There is a suggest ion of some mild swellin g of the distal\ .br\Ach illes\. br\tend on at the calcane al inserti on. Some age-ian ropriat e and mild\.b r\osteo arthrit ic\.br\ alterat ions are present . Numerou s transve rse growth arrest lines are\.br \presen t\.br\i nvolvin g the distal tibia. Additio vesna, there is some transve rse\.br \sclero sis of\.br\ the tibial metaphy sis with smudgy margins . No acute transco rtical fractur e.\.br\ \.br\IM PRESSIO N:\.br\ \.br\1. Mild swellin g of the distal Gregory s tendon suggest ing Deisy s\.br\t endinos is.\.br \2. Transve rsely oriente d scleros is of the distal tibial metaphy sis. This\.b r\could \.br\po tential ly reflect a stress fractur e. Correla te with clinica l factors .\.br\\ .br\Cod e jot next s day.\.b r\ XR KNEE RIGHT AP LATERAL AND AXIAL Observa Value Referen Units Interpr Notes Date tion ce etation Range EXAMINA No No No No Feb 26 TION: informa informa informa informa 2016 XR KNEE tion in tion in tion in tion in 4:22 PM RIGHT source source source source AP data data data data LATERAL AND AXIAL\. br\\.br \DATE: 02/27/20 16 4:22 PM\.br\ \.br\HI STORY: Status post knee arthrop lasty.\ .br\\.b r\JEY RISON: Right knee radiogr aphs 02/18/20 16.\.br \\.br\T ECHNIQU E: 3 views of the right knee.\. br\\.br \FINDIN GS: A noncons trained total knee prosthe sis is noted. There are also\.b r\posts urgical changes of patella r resurfa cing. There is no acute fractur e\.br\o r\.br\d esiccat ion. Soft tissue swellin g persist s, and skin may are noted\. br\ante riorly. \.br\\. br\IMPR ESSION: \.br\\. br\Stat us post patella r resurfa cing and noncons trained total knee prosthe sis\.br \placem ent without evidenc e of acute fractur e or disloca tion.\. br\ H and H Observa Value Referen Units Interpr Notes Date tion ce etation Range Call MD if Hct is less than 28 Hemoglo 11.4 12.0 - gm/dL Low No Feb 20 bin 15.6 informa 2015 [Mass/v tion in 7:45 AM olume] source in data Blood Hematoc 34.9 35.7 - % Low No Feb 20 rit 45.9 informa 2015 [Volume tion in 7:45 AM source Fractio data n] of Blood by Automat ed count H and H Observa Value Referen Units Interpr Notes Date tion ce etation Range Call MD if Hct is less than 28 Hemoglo 11.4 12.0 - gm/dL Low No Feb 19 bin 15.6 informa 2015 [Mass/v tion in 6:45 AM olume] source in data Blood Hematoc 35.4 35.7 - % Low No Feb 19 rit 45.9 informa 2016 [Volume tion in 6:45 AM source Fractio data n] of Blood by Automat ed count H and H Observa Value Referen Units Interpr Notes Date tion ce etation Range Call MD if Hct is less than 28 Hemoglo 12.3 12.0 - gm/dL No No Feb 18 bin 15.6 informa informa 2016 [Mass/v tion in tion in 6:49 AM olume] source source in data data Blood Hematoc 38.4 35.7 - % No No Feb 18 rit 45.9 informa informa 2016 [Volume tion in tion in 6:49 AM source source Fractio data data n] of Blood by Automat ed count XR KNEE RIGHT AP AND LATERAL Observa Value Referen Units Interpr Notes Date tion ce etation Range Operative Knee X-ray in PACU if not done in [place] XR KNEE No No No No Feb 17 RIGHT informa informa informa informa 2016 AP AND tion in tion in tion in tion in 1:40 PM LATERAL source source source source data data data data 02/18/20 16\.br\ \.br\HI STORY: Status post right knee arthrop lasty\. br\\.br \2 views of the right knee show prior 3 compone nt arthrop lasty has been\.b r\perfo rmed. Compone nts articul ate as expecte d. No fractur e or disloca tion\.b r\ident ified.\ .br\\.b r\Impre ssion:\ .br\1. Uncompl icated appeari ng right knee followi ng arthrop lasty.\ .br\ ABSC IgG Observa Value Referen Units Interpr Notes Date tion ce etation Range ABSC Negativ No No No No Feb 17 IgG Int e informa informa informa informa 2016 tion in tion in tion in tion in 12:47 source source source source PM data data data data ABORh Observa Value Referen Units Interpr Notes Date tion ce etation Range ABORh O POS No No No No Feb 17 Int informa informa informa informa 2016 tion in tion in tion in tion in 12:33 source source source source PM data data data data EK EKG 12 LEAD Observa Value Referen Units Interpr Notes Date tion ce etation Range Station No No No No Feb 14 sammy ECG informa informa informa informa 2016 tion in tion in tion in tion in 2:11 PM Study\. source source source source br\St. data data data data Elizabe th Edge[employer] d\.br\I nterpre tive Stateme nts\.br \SINUS TACHYCA RDIA\.b r\ABNOR MAL RHYTHM ECG\.br \Nonspe cific T wave changes \.br\El ectroni yvan Signed On 6 17:41:4 1 EDT by Power John MD ABSC IgG Observa Value Referen Units Interpr Notes Date tion ce etation Range ABSC Negativ No No No No Feb 14 IgG Int e informa informa informa informa 2016 tion in tion in tion in tion in 3:33 PM source source source source data data data data ABORh Observa Value Referen Units Interpr Notes Date ti ce etation Range ABORh O POS No No No No Feb 14 Int informa informa informa informa 2016 tion in tion in tion in tion in 3:33 PM source source source source data data data data PTT Observa Value Referen Units Interpr Notes Date ti ce etation Range Activat 32.1 26.6 - second( No Therape Feb 14 ed 37.0 s) informa uti 2016 partial tion in range 3:01 PM source for thrombp data direct lastin thrombi time n (aPTT) inhibit in ors: Blood Argatro by ban is Coagula 1.5 to tion 3 times assay the aPTT baselin e. Lepirud in is 1.5 to 2 times the aPTT baselin e. The aPTT should not exceed 100 seconds .\.br\T he dosage of Argatro ban should be decreas ed in patient s with hepatic impairm ent. The dosage of Lepirud in should be decreas ed in renal insuffi ciency. \.br\\. br\The aPTT is no longer the appropr iate test to monitor unfract ionated heparin anticoa gulatio n. PT Observa Value Referen Units Interpr Notes Date ti ce etation Range PT 11.3 10.1 - second( No No Feb 14 12.9 s) informa informa 2016 tion in tion in 3:01 PM source source data data INR in 0.98 0.88 - No No Level Feb 14 Platele 1.12 informa informa of 2016 t poor tion in tion in Therapy 3:01 PM plasma source source by data data Indicat Coagula ions tion Target assay INR Range\. br\\.br \Standa rd Dose Treatme nt and prophyl axis of venous 2.0 - 3.0\.br \ thrombo sis, pulmona ry embolis m\.br\\ .br\ High Dose High risk patient s with mechani davy 2.5 - 3.5\.br \ heart valves Auto Diff Observa Value Referen Units Interpr Notes Date ti ce etation Range Neutrop 64.0 No % No No Feb 8 hils informa informa informa 2016 [#/volu tion in tion in tion in 2:49 PM me] in source source source Blood data data data by Automat ed count Lymphoc 28.3 No % No No Feb 8 ytes informa informa informa 2016 [#/volu tion in tion in tion in 2:49 PM me] in source source source Blood data data data by Automat ed count Monocyt 6.5 No % No No Feb 8 es informa informa informa 2016 [#/volu tion in tion in tion in 2:49 PM me] in source source source Blood data data data by Automat ed count Eos 0.8 No % No No Feb 8 Percent informa informa informa 2016 tion in tion in tion in 2:49 PM source source source data data data Baso 0.4 No % No No Feb 8 Percent informa informa informa 2016 tion in tion in tion in 2:49 PM source source source data data data Neut# 7.1 1.8 - x10(3)/ No No Feb 8 7.7 mcL informa informa 2016 tion in tion in 2:49 PM source source data data Lymph# 3.1 0.6 - x10(3)/ No No Feb 8 4.8 mcL informa informa 2016 tion in tion in 2:49 PM source source data data Dickson# 0.7 0.0 - x10(3)/ No No Feb 8 1.3 mcL informa informa 2016 tion in tion in 2:49 PM source source data data Eos# 0.1 0.0 - x10(3)/ No No Feb 8 0.5 mcL informa informa 2016 tion in tion in 2:49 PM source source data data Baso# 0.0 0.0 - x10(3)/ No No Feb 8 0.2 mcL informa informa 2016 tion in tion in 2:49 PM source source data data CBC Observa Value Referen Units Interpr Notes Date tion ce etation Range LEUKOCY 11.1 4.0 - x10(3)/ High No Feb 8 ERIN 11.0 mcL informa 2016 tion in 2:49 PM source data Erythro 5.07 3.80 - x10(6)/ No No Feb 14 cytes 5.10 mcL informa informa 2016 [#/volu tion in tion in 2:49 PM me] in source source Blood data data by Automat ed count Hemoglo 13.7 12.0 - gm/dL No No Feb 14 bin 15.6 informa informa 2016 [Mass/v tion in tion in 2:49 PM olume] source source in data data Blood Hematoc 42.7 35.7 - % No No Feb 14 rit 45.9 informa informa 2016 [Volume tion in tion in 2:49 PM source source Fractio data data n] of Blood by Automat ed count Erythro 84.2 82.5 - fL No No Feb 14 cyte 99.8 informa informa 2016 mean tion in tion in 2:49 PM corpusc source source ular data data volume [Entiti c volume] by Automat ed count Erythro 27.1 27.0 - pg No No Feb 14 cyte 34.3 informa informa 2016 mean tion in tion in 2:49 PM corpusc source source ular data data hemoglo bin [Entiti c mass] by Automat ed count Erythro 32.2 32.1 - gm/dL No No Feb 14 cyte 35.3 informa informa 2016 mean tion in tion in 2:49 PM corpusc source source ular data data hemoglo bin concent ration [Mass/v olume] by Automat ed count Erythro 17.6 11.5 - % High No Feb 14 cyte 15.0 informa 2016 distrib tion in 2:49 PM ution source width data [Ratio] by Automat ed count Platele 272 144 - x10(3)/ No No Feb 14 ts 423 mcL informa informa 2016 [#/volu tion in tion in 2:49 PM me] in source source Blood data data by Automat ed count MPV 8.1 6.8 - fL No No Feb 14 10.8 informa informa 2016 tion in tion in 2:49 PM source source data data UA Observa Value Referen Units Interpr Notes Date tion ce etation Range UA Colorle No No No No Feb 14 Color ss informa informa informa informa 2016 tion in tion in tion in tion in 1:46 PM source source source source data data data data UA Clear Clear No No No Feb 14 Appear informa informa informa 2016 tion in tion in tion in 1:46 PM source source source data data data UA Negativ Negativ No No No Feb 14 Glucose e e informa informa informa 2016 tion in tion in tion in 1:46 PM source source source data data data UA Negativ Negativ No No No Feb 14 Ketones e e informa informa informa 2016 tion in tion in tion in 1:46 PM source source source data data data UA Negativ Negativ No No No Feb 14 Blood e e informa informa informa 2016 tion in tion in tion in 1:46 PM source source source data data data UA pH 6.0 4.8 - No No Referen Feb 14 8.0 informa informa ce 2016 tion in tion in range 1:46 PM source source valid data data for random specime ns only. UA Negativ Negativ No No No Feb 14 Protein e e informa informa informa 2016 tion in tion in tion in 1:46 PM source source source data data data UA Normal <=1 No No No Feb 14 Urobili mg/dl informa informa informa 2016 nogen tion in tion in tion in 1:46 PM source source source data data data UA Negativ Negativ No No No Feb 14 Nitrite e e informa informa informa 2016 tion in tion in tion in 1:46 PM source source source data data data UA Leuk Negativ Negativ No No No Feb 14 Est e e informa informa informa 2016 tion in tion in tion in 1:46 PM source source source data data data UA Spec 1.003 1.001 - No No Referen Feb 14 Grav 1.035 informa informa ce 2016 tion in tion in range 1:46 PM source source valid data data for random specime ns only. ABORh Observa Value Referen Units Interpr Notes Date tion ce etation Range ABORh O POS No No No No Jan 2 Int informa informa informa informa 2016 tion in tion in tion in tion in 1:56 PM source source source source data data data data ABSC IgG Observa Value Referen Units Interpr Notes Date tion ce etation Range ABSC Negativ No No No No Lolita 2 IgG Int e informa informa informa informa 2015 tion in tion in tion in tion in 1:56 PM source source source source data data data data PTT Observa Value Referen Units Interpr Notes Date ti ce etation Range Activat 30.6 26.6 - second( No Therape Lolita 2 ed 37.0 s) informa uti 2016 partial tion in range 12:58 source for PM thrombp data direct lastin thrombi time n (aPTT) inhibit in ors: Blood Argatro by ban is Coagula 1.5 to tion 3 times assay the aPTT baselin e. Lepirud in is 1.5 to 2 times the aPTT baselin e. The aPTT should not exceed 100 seconds .\.br\T he dosage of Argatro ban should be decreas ed in patient s with hepatic impairm ent. The dosage of Lepirud in should be decreas ed in renal insuffi ciency. \.br\\. br\The aPTT is no longer the appropr iate test to monitor unfract ionated heparin anticoa gulatio n. PT Observa Value Referen Units Interpr Notes Date ti ce etation Range PT 11.5 10.1 - second( No No Lolita 2 12.9 s) informa informa 2015 tion in tion in 12:58 source source PM data data INR in 1.00 0.88 - No No Level Lolita 2 Platele 1.12 informa informa of 2016 t poor tion in tion in Therapy 12:58 plasma source source PM by data data Indicat Coagula ions tion Target assay INR Range\. br\\.br \Standa rd Dose Treatme nt and prophyl axis of venous 2.0 - 3.0\.br \ thrombo sis, pulmona ry embolis m\.br\\ .br\ High Dose High risk patient s with mechani davy 2.5 - 3.5\.br \ heart valves UA Observa Value Referen Units Interpr Notes Date ti ce etation Range UA Yellow No No No No Lolita 2 Color informa informa informa informa 2015 tion in tion in tion in tion in 12:43 source source source source PM data data data data UA Clear Clear No No No Lolita 2 Appear informa informa informa 2016 tion in tion in tion in 12:43 source source source PM data data data UA Negativ Negativ No No No Lolita 2 Glucose e e informa informa informa 2016 tion in tion in tion in 12:43 source source source PM data data data UA Negativ Negativ No No No Lolita 2 Ketones e e informa informa informa 2016 tion in tion in tion in 12:43 source source source PM data data data UA Negativ Negativ No No No Lolita 2 Blood e e informa informa informa 2016 tion in tion in tion in 12:43 source source source PM data data data UA pH 6.0 4.8 - No No Referen Lolita 2 8.0 informa informa ce 2016 tion in tion in range 12:43 source source valid PM data data for random specime ns only. UA Negativ Negativ No No No Lolita 2 Protein e e informa informa informa 2016 tion in tion in tion in 12:43 source source source PM data data data UA Normal <=1 No No No Lolita 2 Urobili mg/dl informa informa informa 2016 nogen tion in tion in tion in 12:43 source source source PM data data data UA Negativ Negativ No No No Lolita 2 Nitrite e e informa informa informa 2016 tion in tion in tion in 12:43 source source source PM data data data UA Leuk Negativ Negativ No No No Lolita 2 Est e e informa informa informa 2016 tion in tion in tion in 12:43 source source source PM data data data UA Spec 1.011 1.001 - No No Referen Lolita 2 Grav 1.035 informa informa ce 2016 tion in tion in range 12:43 source source valid PM data data for random specime ns only. Auto Diff Observa Value Referen Units Interpr Notes Date tion ce etation Range Neutrop 86.2 No % No No Lolita 2 hils informa informa informa 2016 [#/volu tion in tion in tion in 12:42 me] in source source source PM Blood data data data by Automat ed count Lymphoc 11.1 No % No No Lolita 2 ytes informa informa informa 2016 [#/volu tion in tion in tion in 12:42 me] in source source source PM Blood data data data by Automat ed count Monocyt 2.5 No % No No Lolita 2 es informa informa informa 2016 [#/volu tion in tion in tion in 12:42 me] in source source source PM Blood data data data by Automat ed count Eos 0.0 No % No No Lolita 2 Percent informa informa informa 2016 tion in tion in tion in 12:42 source source source PM data data data Baso 0.2 No % No No Lolita 2 Percent informa informa informa 2016 tion in tion in tion in 12:42 source source source PM data data data Neut# 15.1 1.8 - x10(3)/ High No Lolita 2 7.7 mcL informa 2016 tion in 12:42 source PM data Lymph# 1.9 0.6 - x10(3)/ No No Lolita 2 4.8 mcL informa informa 2016 tion in tion in 12:42 source source PM data data Dickson# 0.4 0.0 - x10(3)/ No No Lolita 2 1.3 mcL informa informa 2016 tion in tion in 12:42 source source PM data data Eos# 0.0 0.0 - x10(3)/ No No Lolita 2 0.5 mcL informa informa 2016 tion in tion in 12:42 source source PM data data Baso# 0.0 0.0 - x10(3)/ No No Lolita 2 0.2 mcL informa informa 2016 tion in tion in 12:42 source source PM data data CBC Observa Value Referen Units Interpr Notes Date tion ce etation Range LEUKOCY 17.5 4.0 - x10(3)/ High No Lolita 2 ERIN 11.0 mcL informa 2016 tion in 12:42 source PM data Erythro 4.42 3.80 - x10(6)/ No No Lolita 2 cytes 5.10 mcL informa informa 2016 [#/volu tion in tion in 12:42 me] in source source PM Blood data data by Automat ed count Hemoglo 11.9 12.0 - gm/dL Low No Lolita 2 bin 15.6 informa 2016 [Mass/v tion in 12:42 olume] source PM in data Blood Hematoc 36.9 35.7 - % No No Lolita 2 rit 45.9 informa informa 2016 [Volume tion in tion in 12:42 source source PM Fractio data data n] of Blood by Automat ed count Erythro 83.5 82.5 - fL No No Jan 2 cyte 99.8 informa informa 2016 mean tion in tion in 12:42 corpusc source source PM ular data data volume [Entiti c volume] by Automat ed count Erythro 27.0 27.0 - pg No No Jan 09 cyte 34.3 informa informa 2016 mean tion in tion in 12:42 corpusc source source PM ular data data hemoglo bin [Entiti c mass] by Automat ed count Erythro 32.3 32.1 - gm/dL No No Jan 2 cyte 35.3 informa informa 2016 mean tion in tion in 12:42 corpusc source source PM ular data data hemoglo bin concent ration [Mass/v olume] by Automat ed count Erythro 16.2 11.5 - % High No Jan 2 cyte 15.0 inform 2016 distrib tion in 12:42 ution source PM width data [Ratio] by Automat ed count Platele 408 144 - x10(3)/ No No Lolita 2 ts 423 mcL informa informa 2016 [#/volu tion in tion in 12:42 me] in source source PM Blood data data by Automat ed count MPV 7.8 6.8 - fL No No Lolita 2 10.8 informa informa 2016 tion in tion in 12:42 source source PM data data VA US LOWER EXTREMITY VENOUS LEFT Observa Value Referen Units Interpr Notes Date tion ce etation Range This No No No No December 30 patient informa informa informa informa 2016 tion in tion in tion in tion in 1:27 PM receive source source source source d an data data data data examina tion at the [facility] are Vascula r Laborat ory.\.b r\The complet e report can be found in the [facility] ([facility]) Electro li Medical Record of the patient . XR KNEE LEFT AP LATERAL AND AXIAL Observa Value Referen Units Interpr Notes Date tion ce etation Range EXAMINA No No No No December 11 TION: informa informa informa informa 2015 XR KNEE tion in tion in tion in tion in 1:56 PM LEFT source source source source AP data data data data LATERAL AND AXIAL\. br\\.br \DATE: 1:56 PM\.br\ \.br\HI STORY: Left knee pain.\. br\\.br \COMPAR EULALIA: MRI right knee 015.\.b r\\.br\ TECHNIQ UE: 3 views of the left knee.\. br\\.br \FINDIN GS: There is mild lateral patella r trackin g.\.br\ \.br\Th e patient is osteope li. There is no displac ed fractur e or malalig nment.\ .br\Mod erate to advance d osteoar throsis is noted, with medial joint space\. br\narr owing\. br\and tricomp artment al osteoph yte formati on. There is moderat e capsula r\.br\d istenti on.\.br \\.br\D egenera tive entheso pathic changes are noted at the quadric eps tendon\ .br\ins ertion. \.br\\. br\IMPR ESSION: \.br\\. br\1. Negativ e for displac ed fractur e or malalig nment.\ .br\2. Moderat e to advance d tricomp artment al osteoar throsis .\.br\3 . Moderat e capsula r distent ion.\.b r\\.br\ The patient has finding s of an inflamm atory arthrop athy in the\.br \contra lateral \.br\kn ee. Please correla te with the patient 's history .\.br\ VA US LOWER EXTREMITY VENOUS RIGHT Observa Value Referen Units Interpr Notes Date ti ce etation Range This No No No No Oct 30 patient informa informa informa informa 2015 tion in tion in tion in tion in 3:13 PM receive source source source source d an data data data data examina tion at the [facility] are Vascula r Laborat ory.\.b r\The complet e report can be found in the [facility] ([facility]) Electro li Medical Record of the patient . ABORh Observa Value Referen Units Interpr Notes Date tion ce etation Range ABORh O POS No No No No Aug 09 Int informa informa informa informa 2014 tion in tion in tion in tion in 2:43 PM source source source source data data data data ABSC IgG Observa Value Referen Units Interpr Notes Date tion ce etation Range ABSC Negativ No No No No Aug 09 IgG Int e informa informa informa informa 2014 tion in tion in tion in tion in 2:26 PM source source source source data data data data PTT Observa Value Referen Units Interpr Notes Date tion ce etation Range Activat 31.7 26.7 - second( No Therape Aug 09 ed 35.9 s) informa utic 2014 partial tion in range 1:35 PM source for thrombp data direct lastin thrombi time n (aPTT) inhibit in ors: Blood Argatro by ban is Coagula 1.5 to tion 3 times assay the aPTT baselin e. Lepirud in is 1.5 to 2 times the aPTT baselin e. The aPTT should not exceed 100 seconds .\.br\T he dosage of Argatro ban should be decreas ed in patient s with hepatic impairm ent. The dosage of Lepirud in should be decreas ed in renal insuffi ciency. \.br\\. br\The aPTT is no longer the appropr iate test to monitor unfract ionated heparin anticoa gulatio n. PT Observa Value Referen Units Interpr Notes Date tion ce etation Range PT 10.7 9.3 - second( No No Aug 09 12.3 s) informa informa 2014 tion in tion in 1:35 PM source source data data INR in 1.00 0.87 - No No Level Aug 09 Platele 1.15 informa informa of 2014 t poor tion in tion in Therapy 1:35 PM plasma source source by data data Indicat Coagula ions tion Target assay INR Range\. br\\.br \Standa rd Dose Treatme nt and prophyl axis of venous 2.0 - 3.0\.br \ thrombo sis, pulmona ry embolis m\.br\\ .br\ High Dose High risk patient s with mechani davy 2.5 - 3.5\.br \ heart valves CBC Observa Value Referen Units Interpr Notes Date tion ce etation Range LEUKOCY 9.1 4.0 - x10(3)/ No Aug 09 ERIN 11.0 mcL informa informa 2014 tion in tion in 1:32 PM source source data data Erythro 4.59 3.80 - x10(6)/ No Aug 09 cytes 5.10 mcL informa informa 2014 [#/volu tion in tion in 1:32 PM me] in source source Blood data data by Automat ed count Hemoglo 12.8 12.0 - gm/dL No Aug 09 bin 15.6 informa informa 2014 [Mass/v tion in tion in 1:32 PM olume] source source in data data Blood Hematoc 39.4 35.7 - % No Aug 09 rit 45.9 informa informa 2014 [Volume tion in tion in 1:32 PM source source Fractio data data n] of Blood by Automat ed count Erythro 85.9 82.5 - fL No Aug 09 cyte 99.8 informa informa 2014 mean tion in tion in 1:32 PM corpusc source source ular data data volume [Entiti c volume] by Automat ed count Erythro 27.9 27.0 - pg No Aug 09 cyte 34.3 informa informa 2014 mean tion in tion in 1:32 PM corpusc source source ular data data hemoglo bin [Entiti c mass] by Automat ed count Erythro 32.5 32.1 - gm/dL No Aug 09 cyte 35.3 informa informa 2014 mean tion in tion in 1:32 PM corpusc source source ular data data hemoglo bin concent ration [Mass/v olume] by Automat ed count Erythro 15.5 11.5 - % High Aug 09 cyte 15.0 informa 2014 distrib tion in 1:32 PM ution source width data [Ratio] by Automat ed count Platele 237 144 - x10(3)/ No No Aug 09 ts 423 mcL informa informa 2014 [#/volu tion in tion in 1:32 PM me] in source source Blood data data by Automat ed count MPV 8.9 6.8 - fL No Aug 09 10.8 informa informa 2015 tion in tion in 1:32 PM source source data data Auto Diff Observa Value Referen Units Interpr Notes Date tion ce etation Range Neutrop 69.9 No % No Aug 09 hils informa informa informa 2014 [#/volu tion in tion in tion in 1:32 PM me] in source source source Blood data data data by Automat ed count Lymphoc 24.3 No % No Aug 09 ytes informa informa informa 2014 [#/volu tion in tion in tion in 1:32 PM me] in source source source Blood data data data by Automat ed count Monocyt 3.9 No % No Aug 09 es informa informa informa 2014 [#/volu tion in tion in tion in 1:32 PM me] in source source source Blood data data data by Automat ed count Eos 1.6 No % No No Aug 09 Percent informa informa informa 2015 tion in tion in tion in 1:32 PM source source source data data data Baso 0.3 No % No Aug 09 Percent informa informa informa 2015 tion in tion in tion in 1:32 PM source source source data data data Neut# 6.4 1.8 - x10(3)/ No No Aug 09 7.7 mcL informa informa 2015 tion in tion in 1:32 PM source source data data Lymph# 2.2 0.6 - x10(3)/ No No Aug 09 4.8 mcL informa informa 2015 tion in tion in 1:32 PM source source data data Dickson# 0.4 0.0 - x10(3)/ No No Aug 09 1.3 mcL informa informa 2015 tion in tion in 1:32 PM source source data data Eos# 0.1 0.0 - x10(3)/ No No Aug 09 0.5 mcL informa informa 2015 tion in tion in 1:32 PM source source data data Baso# 0.0 0.0 - x10(3)/ No No Aug 09 0.2 mcL informa informa 2014 tion in tion in 1:32 PM source source data data EK EKG 12 LEAD Observa Value Referen Units Interpr Notes Date ti ce etation Range Station No No No No Aug 09 sammy ECG informa informa informa informa 2014 tion in tion in tion in tion in 12:12 Study\. source source source source PM br\St. data data data data Eliedenbe th [employer] d\.br\I nterpre tive Stateme nts\.br \SINUS RHYTHM\ .br\Leonila ctronic ally Signed On 015 16:57:3 1 EST by Robin bhat MD UA Observa Value Referen Units Interpr Notes Date ti ce etation Range UA Light No No No No Aug 09 Color Yellow informa informa informa informa 2014 tion in tion in tion in tion in 2:58 PM source source source source data data data data UA Clear Clear No No No Aug 09 Appear informa informa informa 2014 tion in tion in tion in 2:58 PM source source source data data data UA Negativ Negativ No No No Aug 09 Glucose e e informa informa informa 2014 tion in tion in tion in 2:58 PM source source source data data data UA Negativ Negativ No No No Aug 09 Ketones e e informa informa informa 2014 tion in tion in tion in 2:58 PM source source source data data data UA Negativ Negativ No No No Aug 09 Blood e e informa informa informa 2014 tion in tion in tion in 2:58 PM source source source data data data UA pH 6.0 4.8 - No No ReferAug 09 8.0 informa informa ce 2014 tion in tion in range 2:58 PM source source valid data data for random specime ns only. UA Negativ Negativ No No No Aug 09 Protein e e informa informa informa 2014 tion in tion in tion in 2:58 PM source source source data data data UA Normal <=1 No No No Aug 09 Urobili mg/dl informa informa informa 2015 nogen tion in tion in tion in 2:58 PM source source source data data data UA Negativ Negativ No No Aug 09 Nitrite e e informa informa informa 2015 tion in tion in tion in 2:58 PM source source source data data data UA Leuk Negativ Negativ No No No Aug 09 Est e e informa informa informa 2015 tion in tion in tion in 2:58 PM source source source data data data UA Spec 1.004 1.001 - No No Referen Aug 09 Grav 1.035 informa informa ce 2015 tion in tion in range 2:58 PM source source valid data data for random specime ns only. B12 Observa Value Referen Units Interpr Notes Date tion ce etation Range CYANOCO 298 211 - pg/mL No Jul 18 BALAMIN 946 informa informa 2015 .TRUE tion in tion in 9:34 PM source source data data TSH Observa Value Referen Units Interpr Notes Date tion ce etation Range Thyrotr 1.840 0.270 - mcIU/mL No Jul 18 opin 4.200 informa informa 2015 [Units/ tion in tion in 9:25 PM volume] source source in data data Serum or Plasma Free T4 Observa Value Referen Units Interpr Notes Date tion ce etation Range Thyroxi 1.25 0.93 - ng/dL No No Jul 18 ne (T4) 1.70 informa informa 2015 free tion in tion in 9:25 PM [Mass/v source source olume] data data in Serum or Plasma Hemogram Observa Value Referen Units Interpr Notes Date tion ce etation Range LEUKOCY 9.6 4.0 - x10(3)/ No No Jul 18 ERIN 11.0 mcL informa informa 2014 tion in tion in 9:23 PM source source data data Erythro 4.48 3.80 - x10(6)/ No No Jul 18 cytes 5.10 mcL informa informa 2014 [#/volu tion in tion in 9:23 PM me] in source source Blood data data by Automat ed count Hemoglo 12.6 12.0 - gm/dL No Jul 18 bin 15.6 informa informa 2015 [Mass/v tion in tion in 9:23 PM olume] source source in data data Blood Hematoc 38.6 35.7 - % No No Jul 18 rit 45.9 informa informa 2015 [Volume tion in tion in 9:23 PM source source Fractio data data n] of Blood by Automat ed count Erythro 86.3 82.5 - fL No No Jul 18 cyte 99.8 informa informa 2015 mean tion in tion in 9:23 PM corpusc source source ular data data volume [Entiti c volume] by Automat ed count Erythro 28.1 27.0 - pg No No Jul 18 cyte 34.3 informa informa 2015 mean tion in tion in 9:23 PM corpusc source source ular data data hemoglo bin [Entiti c mass] by Automat ed count Erythro 32.6 32.1 - gm/dL No No Jul 18 cyte 35.3 informa informa 2014 mean tion in tion in 9:23 PM corpusc source source ular data data hemoglo bin concent ration [Mass/v olume] by Automat ed count Erythro 16.0 11.5 - % High No Jul 18 cyte 15.0 informa 2015 distrib tion in 9:23 PM ution source width data [Ratio] by Automat ed count Platele 260 144 - x10(3)/ No No Jul 18 ts 423 mcL informa informa 2014 [#/volu tion in tion in 9:23 PM me] in source source Blood data data by Automat ed count MPV 8.6 6.8 - fL No No Jul 18 10.8 informa informa 2014 tion in tion in 9:23 PM source source data data XR KNEE RIGHT AP LATERAL AND AXIAL Observa Value Referen Units Interpr Notes Date tion ce etation Range Examina No No No No Jun 20 tion: informa informa informa informa 2014 XR KNEE tion in tion in tion in tion in 3:10 PM RIGHT source source source source AP data data data data LATERAL AND AXIAL\. br\\.br \Date: 015 3:10 PM.\.br \\.br\H istory: M17.9-O steoart hritis of knee, unspeci fied-IC D-10-CM ;\.br\M 71.21-S ynovial \.br\cy st of poplite al space ([place]) , right knee-IC D-10-CM . The technol ogist\. br\repo rts\.br \chroni c knee pain.\. br\\.br \Compar eulalia: Right knee radiogr aphs 03/07/20 15; MRI right knee 015..\. br\\.br \Techni que: 3 views of the right knee patella r trackin g is neutral ..\.br\ \.br\Fi ndings/ \.br\Im pressio n: The patient is osteope li. Patella r trackin g is neutral . There\. br\is no\.br\ displac ed fractur e, subluxa tion, or disloca tion. There are severe\ .br\tri compart mental degener ative joint changes , with joint space reducti on\.br\ disprop ortiona tely promine nt to the amount of osteoph yte formati on. While\. br\the\ .br\fin dings of osteoph yte paucity may be seconda ry to osteope vanna, and\.br \inflam matory\ .br\art hropath y may explain these finding s as suggest ed by the promine nt\.br\ synovit is\.br\ on the compari son MRI. Densiti es within the suprapa tellar recess likely\ .br\ref lect\.b r\intra -articu lar bodies. There is moderat e to severe capsula r distent ion.\.b r\ MRI KNEE RIGHT WO CONTRAST Observa Value Referen Units Interpr Notes Date tion ce etation Range MRI No No No No May 21 KNEE informa informa informa informa 2014 RIGHT tion in tion in tion in tion in 4:20 PM WO source source source source CONTRAS data data data data T 015 4:20 PM\.br\ \.br\HI STORY: Right knee pain and swellin g, history of rheumat oid arthrit is.\.br \S86.91 1A-Stra in of unspeci fied muscle( s) and tendon( s) at lower leg level,\ .br\rig ht\.br\ leg, initial encount er-ICD- 10-CM\. br\M25. 561-Wilmar n in right knee-IC D-10-CM \.br\\. br\TECH NIQUE: Routine MRI of the right knee without contras t\.br\\ .br\COM PARISON : X-ray March 07, 2015\.b r\\.br\ FINDING S:\.br\ \.br\Th ere is a moderat e suprapa tellar joint effusio n with exubera nt synovit is\.br\ noted.\ .br\Com plete chondra l denudat ion within the patello femoral compart ment and\.br \large\ .br\are as of high-gr mark chondra l loss within the medial compart ment are noted.\ .br\Gra de\.br\ 2 and 3 chondra l thinnin g in the lateral compart ment with superim posed\. br\grad e 4\.br\c hondral fissuri ng. Periart icular edema is evident particu larly within the\.br \patell ofemora l and medial compart ments. There is subchon dral cystic change\ .br\of\ .br\the central weightb earing aspect of the medial lateral femoral condyle s\.br\a nd\.br\ medial tibial plateau .\.br\\ .br\The re is degener ative tearing involvi ng the body of the lateral meniscu s.\.br\ The\.br \medial meniscu s is intact. ACL and PCL are intact. The medial collate ral\.br \ligame nt and the lateral collate ral ligamen t complex are intact. The\.br \extens or\.br\ mechani sm and patello femoral retinac marce are intact. \.br\\. br\Ther e is no fractur e and there is no marrow replaci ng process .\.br\\ .br\IMP RESSION :\.br\\ .br\1. Severe chondra l loss with osteoph yte formati on particu larly within the\.br \patell ofemora l and medial compart ments. Interme diate grade chondra l loss\.b r\withi n\.br\t he lateral compart ment. The amount of bony hypertr ophy, as well as\.br\ asymmet tahmina\.br \involv ement of the joint, is compati ble with severe osteoar thritis .\.br\2 . There is a superim posed moderat e joint effusio n with severe synovit is.\.br \These\ .br\fin dings can be seen in the setting of osteoar thritis , however given\. br\hist ory of\.br\ rheumat oid arthrit is, an inflamm atory arthrop athy could certain ly be\.br\ involve d\.br\s econdar y to the degener ative changes as above.\ .br\3. Degener ative tearing of the body of the lateral meniscu s.\.br\ Vit D 25-OH Observa Value Referen Units Interpr Notes Date tion ce etation Range Vitamin 33.2 30.0 - ng/mL No INTERPR Sep 11 D-25 120.0 informa ETIVE 2014 OH tion in INFORMA 8:31 AM source TION: data Vitamin D, 25-Hydr oxy\.br \\.br\< 20 ng/mL Deficie ncy\.br \20 - 29 ng/mL Insuffi ciency\ .br\30 - 80 ng/mL Optimum Level\. br\>120 ng/mL Possibl e Toxicit y\.br\\ .br\NOT E: For infants and childre n up to 17 years of age, the optimum level is >=20 ng/mL. This assay accurat carlos quantif ies the sum of vitamin D3, 25-Hydr oxy and vitamin D2, 25-Hydr oxy. Glyco Observa Value Referen Units Interpr Notes Date tion ce etation Range Hemoglo 5.4 <=7.0 % No Initial Sep 11 bin informa 2014 A1c/Hem tion in Diagnos 7:13 AM oglobin source tic .total data Criteri in a\.br\< Blood 5.7 % Normal\ .br\5.7 - 6.4 % At risk for diabete s mellitu s\.br\> = 6.5 % Consist ent with diabete s mellitu s\.br\\ .br\Cheri betes monitor ing\.br \Target Value (ADA recomme nded): < 7 % Free T3 Observa Value Referen Units Interpr Notes Date tion ce etation Range T3 Free 2.78 2.00 - pg/mL No No Sep 10 4.40 informa informa 2014 tion in tion in 10:14 source source PM data data TSH Observa Value Referen Units Interpr Notes Date tion ce etation Range Thyrotr 1.280 0.270 - mcIU/mL No No Sep 10 opin 4.200 informa informa 2014 [Units/ tion in tion in 10:13 volume] source source PM in data data Serum or Plasma Lipid Scr Observa Value Referen Units Interpr Notes Date tion ce etation Range Cholest 168 <=200 mg/dL No < 200 Sep 10 lizabeth informa 2014 [Percen tion in 10:13 tile] source Desirab PM data le\.br\ 200 - 239 Borderl ine High\.b r\>= 240 High TRIGLYC 156 <=150 mg/dL High < 150 Sep 10 ERIDES. 2015 TOTAL Normal\ 10:13 .br\150 PM - 199 Borderl ine High\.b r\200 - 499 High\.b r\ >= 500 Very High CHOLEST 31 >=40 mg/dL Low > 60 Sep 10 EROLS.I 2014 N HDL Optimal 10:13 \.br\40 PM - 60 Accepta ble\.br \ < 40 Low LDL 106 <=100 mg/dL High < 100 Sep 10 Calcula 2015 true 10:13 Optimal PM \.br\10 0 - 129 Near or above optimal \.br\13 0 - 159 Borderl ine High\.b r\160 - 189 High\.b r\ >= 190 Very High Free T4 Observa Value Referen Units Interpr Notes Date tion ce etation Range Thyroxi 1.33 0.93 - ng/dL No No Sep 10 ne (T4) 1.70 informa informa 2014 free tion in tion in 10:13 [Mass/v source source PM olume] data data in Serum or Plasma B12/ FA Observa Value Referen Units Interpr Notes Date tion ce etation Range CYANOCO 336 211 - pg/mL No No Sep 10 BALAMIN 946 informa informa 2014 .TRUE tion in tion in 8:36 PM source source data data Folic 7.53 4.50 - ng/mL No No Apr 19 Acid 37.30 informa informa 2014 Lvl tion in tion in 8:36 PM source source data data XR KNEE RIGHT AP LATERAL AND AXIAL Observa Value Referen Units Interpr Notes Date tion ce etation Range Right No No No No Mar 07 knee 3 informa informa informa informa 2014 views\. tion in tion in tion in tion in 1:35 PM br\\.br source source source source \ data data data data 015\.br \\.br\C ompare: None availab le\.br\ \.br\CL INICAL HISTORY : chronic pain\.b r\\.br\ FINDING S:\.br\ \.br\Th ere is a small suprapa tellar joint effusio n\.br\\ .br\The re is a small accesso ry ossicle at the superio r pole of. There is\.br\ tricomp artment al\.br\ osteoar thritis with greates t narrowi ng in the lateral tibiofe moral\. br\comp artment .\.br\\ .br\No loose bodies. \.br\\. br\IMPR ESSION: \.br\\. br\Smal l joint effusio n. Mild tricomp artment al osteoar thritis . BMP Observa Value Referen Units Interpr Notes Date tion ce etation Range Sodium 139 136 - mmol/L No No Feb 16 145 informa informa 2014 tion in tion in 1:11 PM source source data data Potassi 3.7 3.5 - mmol/L No No Feb 16 um 5.0 informa informa 2014 [Moles/ tion in tion in 1:11 PM volume] source source in data data Serum or Plasma Chlorid 101 98 - mmol/L No No Feb 16 e 107 informa informa 2014 tion in tion in 1:11 PM source source data data Carbon 25 22 - 29 mmol/L No No Feb 16 dioxide informa informa 2014 , total tion in tion in 1:11 PM source source [Moles/ data data volume] in Serum or Plasma Anion 13 7 - 16 mmol/L No No Feb 16 Gap informa informa 2014 tion in tion in 1:11 PM source source data data CALCIUM 8.9 8.6 - mg/dL No No Feb 16 .TOTAL 10.2 informa informa 2014 tion in tion in 1:11 PM source source data data Glucose 125 74 - mg/dL High No Feb 16 Lvl 100 informa 2014 tion in 1:11 PM source data BUN 10 6 - 20 mg/dL No No Feb 16 informa informa 2014 tion in tion in 1:11 PM source source data data Creatin 0.81 0.51 - mg/dL No No Feb 16 ine 1.30 informa informa 2014 tion in tion in 1:11 PM source source data data Auto Diff Observa Value Referen Units Interpr Notes Date tion ce etation Range Neutrop 73.5 No % No No Feb 16 hils informa informa informa 2014 [#/volu tion in tion in tion in 12:53 me] in source source source PM Blood data data data by Automat ed count Lymphoc 19.6 No % No No Feb 16 ytes informa informa informa 2014 [#/volu tion in tion in tion in 12:53 me] in source source source PM Blood data data data by Automat ed count Monocyt 4.5 No % No No Feb 16 es informa informa informa 2014 [#/volu tion in tion in tion in 12:53 me] in source source source PM Blood data data data by Automat ed count Eos 1.8 No % No No Feb 16 Percent informa informa informa 2014 tion in tion in tion in 12:53 source source source PM data data data Baso 0.6 No % No No Feb 16 Percent informa informa informa 2014 tion in tion in tion in 12:53 source source source PM data data data Neut# 8.6 1.8 - x10(3)/ High No Feb 16 7.7 mcL informa 2014 tion in 12:53 source PM data Lymph# 2.3 0.6 - x10(3)/ No No Feb 16 4.8 mcL informa informa 2014 tion in tion in 12:53 source source PM data data Dickson# 0.5 0.0 - x10(3)/ No No Feb 16 1.3 mcL informa informa 2014 tion in tion in 12:53 source source PM data data Eos# 0.2 0.0 - x10(3)/ No No Feb 16 0.5 mcL informa informa 2014 tion in tion in 12:53 source source PM data data Baso# 0.1 0.0 - x10(3)/ No No Feb 16 0.2 mcL informa informa 2014 tion in tion in 12:53 source source PM data data CBC Observa Value Referen Units Interpr Notes Date tion ce etation Range LEUKOCY 11.7 4.0 - x10(3)/ High No Feb 16 ERIN 11.0 mcL informa 2014 tion in 12:53 source PM data Erythro 4.68 3.80 - x10(6)/ No No Feb 16 cytes 5.10 mcL informa informa 2014 [#/volu tion in tion in 12:53 me] in source source PM Blood data data by Automat ed count Hemoglo 13.6 12.0 - gm/dL No Feb 16 bin 15.6 informa informa 2014 [Mass/v tion in tion in 12:53 olume] source source PM in data data Blood Hematoc 41.0 35.7 - % No No Feb 16 rit 45.9 informa informa 2014 [Volume tion in tion in 12:53 source source PM Fractio data data n] of Blood by Automat ed count Erythro 87.6 82.5 - fL No No Feb 16 cyte 99.8 informa informa 2014 mean tion in tion in 12:53 corpusc source source PM ular data data volume [Entiti c volume] by Automat ed count Erythro 29.0 27.0 - pg No No Feb 16 cyte 34.3 informa informa 2014 mean tion in tion in 12:53 corpusc source source PM ular data data hemoglo bin [Entiti c mass] by Automat ed count Erythro 33.1 32.1 - gm/dL No No Feb 16 cyte 35.3 informa informa 2014 mean tion in tion in 12:53 corpusc source source PM ular data data hemoglo bin concent ration [Mass/v olume] by Automat ed count Erythro 15.0 11.5 - % No No Feb 16 cyte 15.0 informa informa 2014 distrib tion in tion in 12:53 ution source source PM width data data [Ratio] by Automat ed count Platele 235 144 - x10(3)/ No No Feb 16 ts 423 mcL informa informa 2014 [#/volu tion in tion in 12:53 me] in source source PM Blood data data by Automat ed count MPV 8.1 6.8 - fL No No Feb 16 10.8 informa informa 2014 tion in tion in 12:53 source source PM data data [facility] US LOWER EXTREMITY VENOUS RIGHT Observa Value Referen Units Interpr Notes Date ce etation Range This No No No No Feb 16 patient informa informa informa informa 2014 tion in tion in tion in tion in 12:09 receive source source source source PM d an data data data data examina tion at the [facility] are Vascula r Laborat ory.\.b r\The complet e report can be found in the [facility] ([facility]) Electro li Medical Record of the patient . XR CHEST AP PORTABLE Observa Value Referen Units Interpr Notes Date ti ce etation Range Portabl No No No No January 04 e erect informa informa informa informa 2014 chest, tion in tion in tion in tion in 10:55 source source source source AM 01/05/20 data data data data 15, 1047 hours\. br\\.br \HISTOR Y: Left-si ded chest pain. Smoker. \.br\\. br\COMP ARISON: Several priors includi ng most recent from 3 and dating\ .br\estevan k to 07/14/20 11.\.br \\.br\H eart and mediast inum are normal. There is an approxi mately 2 cm somewha t\.br\r ounded increas ed\.br\ density superim posed upon the inferio r aspect of the left first\. br\cost ochondr al junctio n and the\.br \upper inspector ior aspect of the left fifth rib. Althoug h this could represe nt\.br\ degener ative changes of\.br\ the costoch ondral junctio n, it appears increas ed from prior study and the\.br \possib ility of left\.b r\upper lobe nodule or neoplas m is not exclude d. Left mid and lower lung and\.br \the right lung are\.br \clear. \.br\\. br\IMPR ESSION: No acute finding s. There is approxi mately 2 cm increas ed\.br\ densiti es partial ly\.br\ superim posed upon the inferio r aspect left worse costoch ondral junctio n in\.br\ the posteri or left\.b r\fifth rib. This likely represe nts degener ative change of the costoch ondral\ .br\lolita ction but appears \.br\in creased . Possibi lity of lung nodule or neoplas m is not exclude d.\.br\ Surgica lly as patient has\.br \smokin g history , chest CT is suggest ed for further evaluat ion.\.b r\\.br\ Yazan er\.br\ \.br\Dr Maribell Hand er discuss ed chest x-ray finding s and recomme ndation for\.br \follow up chest CT with \.br \Tenisha at 1140 hours on 01/05/20 15. BMP Observa Value Referen Units Interpr Notes Date tion ce etation Range Sodium 141 136 - mmol/L No No January 04 145 informa informa 2014 tion in tion in 11:17 source source AM data data Potassi 4.0 3.5 - mmol/L No No January 04 um 5.0 informa informa 2014 [Moles/ tion in tion in 11:17 volume] source source AM in data data Serum or Plasma Chlorid 99 98 - mmol/L No No January 04 e 107 informa informa 2014 tion in tion in 11:17 source source AM data data Carbon 25 22 - 29 mmol/L No No January 04 dioxide informa informa 2014 , total tion in tion in 11:17 source source AM [Moles/ data data volume] in Serum or Plasma Anion 17 7 - 16 mmol/L High No January 04 Gap informa 2014 tion in 11:17 source AM data CALCIUM 9.6 8.6 - mg/dL No No January 04 .TOTAL 10.2 informa informa 2014 tion in tion in 11:17 source source AM data data Glucose 96 74 - mg/dL No No January 04 Lvl 100 informa informa 2014 tion in tion in 11:17 source source AM data data BUN 9 6 - 20 mg/dL No January 04 informa informa 2014 tion in tion in 11:17 source source AM data data Creatin 0.89 0.51 - mg/dL No No January 04 ine 1.30 informa informa 2014 tion in tion in 11:17 source source AM data data Diff Observa Value Referen Units Interpr Notes Date tion ce etation Range Neutrop 2 0 - 10 % No No January 04 hils.ba informa informa 2014 nd tion in tion in 11:12 source source AM 0 data data leukocy erin in Blood by Manual count Polychr Slight No No No January 04 om informa informa informa informa 2014 tion in tion in tion in ti in 11:12 source source source source AM data data data data Auto Diff Observa Value Referen Units Interpr Notes Date ti ce etation Range Neutrop 67.7 No % No No January 04 hils informa informa informa 2014 [#/volu tion in tion in tion in 11:12 me] in source source source AM Blood data data data by Automat ed count Lymphoc 26.0 No % No No January 04 ytes informa informa informa 2014 [#/volu tion in tion in tion in 11:12 me] in source source source AM Blood data data data by Automat ed count Monocyt 3.9 No % No No January 04 es informa informa informa 2014 [#/volu tion in tion in tion in 11:12 me] in source source source AM Blood data data data by Automat ed count Eos 1.1 No % No No January 04 Percent informa informa informa 2014 tion in tion in tion in 11:12 source source source AM data data data Baso 1.3 No % No January 04 Percent informa informa informa 2014 tion in tion in tion in 11:12 source source source AM data data data Neut# 8.1 1.8 - x10(3)/ High No January 04 7.7 [facility] informa 2014 tion in 11:12 source AM data Lymph# 3.1 0.6 - x10(3)/ No No January 04 4.8 [facility] informa informa 2014 tion in tion in 11:12 source source AM data data Dickson# 0.5 0.0 - x10(3)/ No No January 04 1.3 mcL informa informa 2014 tion in tion in 11:12 source source AM data data Eos# 0.1 0.0 - x10(3)/ No No January 04 0.5 [facility] informa informa 2014 tion in tion in 11:12 source source AM data data Baso# 0.2 0.0 - x10(3)/ No No January 04 0.2 [facility] informa informa 2014 tion in tion in 11:12 source source AM data data CBC Observa Value Referen Units Interpr Notes Date tion ce etation Range LEUKOCY 11.9 4.0 - x10(3)/ High No January 04 ERIN 11.0 [facility] informa 2014 tion in 10:54 source AM data Erythro 5.21 3.80 - x10(6)/ High No January 04 cytes 5.10 [facility] informa 2014 [#/volu tion in 10:54 me] in source AM Blood data by Automat ed count Hemoglo 15.3 12.0 - gm/dL No January 04 bin 15.6 informa informa 2014 [Mass/v tion in tion in 10:54 olume] source source AM in data data Blood Hematoc 45.4 35.7 - % No January 04 rit 45.9 informa informa 2014 [Volume tion in tion in 10:54 source source AM Fractio data data n] of Blood by Automat ed count Erythro 87.1 82.5 - fL No January 04 cyte 99.8 informa informa 2014 mean tion in tion in 10:54 corpusc source source AM ular data data volume [Entiti c volume] by Automat ed count Erythro 29.3 27.0 - pg No January 04 cyte 34.3 informa informa 2014 mean tion in tion in 10:54 corpusc source source AM ular data data hemoglo bin [Entiti c mass] by Automat ed count Erythro 33.6 32.1 - gm/dL No No January 04 cyte 35.3 informa informa 2014 mean tion in tion in 10:54 corpusc source source AM ular data data hemoglo bin concent ration [Mass/v olume] by Automat ed count Erythro 14.9 11.5 - % No No January 04 cyte 15.0 informa informa 2015 distrib tion in tion in 10:54 ution source source AM width data data [Ratio] by Automat ed count Platele 224 144 - x10(3)/ No No January 04 ts 423 mcL informa informa 2014 [#/volu tion in tion in 10:54 me] in source source AM Blood data data by Automat ed count MPV 8.6 6.8 - fL No No January 04 10.8 informa informa 2014 tion in tion in 10:54 source source AM data data EK EKG 12 LEAD Observa Value Referen Units Interpr Notes Date ti ce etation Range Station No No No No January 04 sammy ECG informa informa informa informa 2014 tion in tion in tion in tion in 10:26 Study\. source source source source AM br\St. data data data data Eliedenbe th [employer] d\.br\I nterpre tive Stateme nts\.br \SINUS RHYTHM\ .br\Leonila ctronic ally Signed On 2014-12 22:14:5 6 EDT by Samir Haskins MD Glyco Observa Value Referen Units Interpr Notes Date ti ce etation Range Hemoglo 5.0 <=7.0 % No Initial Oct 31 bin informa 2015 A1c/Hem tion in Diagnos 10:43 oglobin source tic AM .total data Criteri in a\.br\< Blood 5.7 % Normal\ .br\5.7 - 6.4 % At risk for diabete s mellitu s\.br\> = 6.5 % Consist ent with diabete s mellitu s\.br\\ .br\Cheri betes monitor ing\.br \Target Value (ADA recomme nded): < 7 % Vit D 25-OH Observa Value Referen Units Interpr Notes Date tion ce etation Range Vitamin 20.3 30.0 - ng/mL Low INTERPR Oct 24 D-25 120.0 ETIVE 2014 [place] INFORMA 8:33 AM TION: Vitamin D, 25-Hydr oxy\.br \\.br\< 20 ng/mL Deficie ncy\.br \20 - 29 ng/mL Insuffi ciency\ .br\30 - 80 ng/mL Optimum Level\. br\>120 ng/mL Possibl e Toxicit y\.br\\ .br\NOT E: For infants and childre n up to 17 years of age, the optimum level is >=20 ng/mL. This assay accurat carlos quantif ies the sum of vitamin D3, 25-Hydr oxy and vitamin D2, 25-Hydr oxy. B12/ FA Observa Value Referen Units Interpr Notes Date tion ce etation Range CYANOCO 333 211 - pg/mL No No Oct 30 BALAMIN 946 informa informa 2014 .TRUE tion in tion in 6:30 PM source source data data Folic 9.05 4.50 - ng/mL No No Oct 30 Acid 37.30 informa informa 2014 Lvl tion in tion in 6:30 PM source source data data TSH Observa Value Referen Units Interpr Notes Date tion ce etation Range Thyrotr 1.100 0.270 - mcIU/mL No No Oct 30 opin 4.200 informa informa 2014 [Units/ tion in tion in 6:19 PM volume] source source in data data Serum or Plasma Lipid Scr Observa Value Referen Units Interpr Notes Date tion ce etation Range Cholest 226 <=200 mg/dL High < 200 Oct 30 lizabeth 2015 [Percen 6:19 PM tile] Desirab le\.br\ 200 - 239 Borderl ine High\.b r\>= 240 High TRIGLYC 192 <=150 mg/dL High < 150 Oct 30 ERIDES. 2015 TOTAL Normal\ 6:19 PM .br\150 - 199 Borderl ine High\.b r\200 - 499 High\.b r\ >= 500 Very High CHOLEST 34 >=40 mg/dL Low > 60 Oct 30 EROLS.I 2014 N HDL Optimal 6:19 PM \.br\40 - 60 Accepta ble\.br \ < 40 Low LDL 154 <=100 mg/dL High < 100 Oct 30 Calcula 2015 true 6:19 PM Optimal \.br\10 0 - 129 Near or above optimal \.br\13 0 - 159 Borderl ine High\.b r\160 - 189 High\.b r\ >= 190 Very High Free T3 Observa Value Referen Units Interpr Notes Date tion ce etation Range T3 Free 2.46 2.00 - pg/mL No Oct 30 4.40 informa informa 2014 tion in tion in 6:19 PM source source data data Free T4 Observa Value Referen Units Interpr Notes Date tion ce etation Range Thyroxi 1.36 0.93 - ng/dL No Oct 30 ne (T4) 1.70 informa informa 2014 free tion in tion in 6:19 PM [Mass/v source source olume] data data in Serum or Plasma Hemogram Observa Value Referen Units Interpr Notes Date tion ce etation Range LEUKOCY 9.6 4.0 - x10(3)/ No Oct 30 ERIN 11.0 mcL informa informa 2014 tion in tion in 5:54 PM source source data data Erythro 4.77 3.80 - x10(6)/ No Oct 30 cytes 5.10 mcL informa informa 2014 [#/volu tion in tion in 5:54 PM me] in source source Blood data data by Automat ed count Hemoglo 14.5 12.0 - gm/dL No Oct 30 bin 15.6 informa informa 2014 [Mass/v tion in tion in 5:54 PM olume] source source in data data Blood Hematoc 42.4 35.7 - % No Oct 30 rit 45.9 informa informa 2014 [Volume tion in tion in 5:54 PM source source Fractio data data n] of Blood by Automat ed count Erythro 88.9 82.5 - fL No Oct 30 cyte 99.8 informa informa 2014 mean tion in tion in 5:54 PM corpusc source source ular data data volume [Entiti c volume] by Automat ed count Erythro 30.4 27.0 - pg No Oct 30 cyte 34.3 informa informa 2014 mean tion in tion in 5:54 PM corpusc source source ular data data hemoglo bin [Entiti c mass] by Automat ed count Erythro 34.2 32.1 - gm/dL No No Oct 30 cyte 35.3 informa informa 2014 mean tion in tion in 5:54 PM corpusc source source ular data data hemoglo bin concent ration [Mass/v olume] by Automat ed count Erythro 15.5 11.5 - % High No Oct 30 cyte 15.0 informa 2014 distrib tion in 5:54 PM ution source width data [Ratio] by Automat ed count Platele 232 144 - x10(3)/ No No Oct 30 ts 423 mcL informa informa 2014 [#/volu tion in tion in 5:54 PM me] in source source Blood data data by Automat ed count MPV 9.1 6.8 - fL No No Oct 30 10.8 informa informa 2014 tion in tion in 5:54 PM source source data data Auto Diff Observa Value Referen Units Interpr Notes Date tion ce etation Range Neutrop 73.7 No % No No May 30 hils informa informa informa 2012 [#/volu tion in tion in tion in 3:32 PM me] in source source source Blood data data data by Automat ed count Lymphoc 20.2 No % No No May 30 ytes informa informa informa 2012 [#/volu tion in tion in tion in 3:32 PM me] in source source source Blood data data data by Automat ed count Monocyt 4.4 No % No No May 30 es informa informa informa 2012 [#/volu tion in tion in tion in 3:32 PM me] in source source source Blood data data data by Automat ed count Eos 0.9 No % No No May 30 Percent informa informa informa 2012 tion in tion in tion in 3:32 PM source source source data data data Baso 0.8 No % No No May 30 Percent informa informa informa 2013 tion in tion in tion in 3:32 PM source source source data data data Neut# 10.0 1.8 - x10(3)/ High No May 30 7.7 mcL informa 2012 tion in 3:32 PM source data Lymph# 2.7 0.6 - x10(3)/ No No May 30 4.8 mcL informa informa 2013 tion in tion in 3:32 PM source source data data Dickson# 0.6 0.0 - x10(3)/ No No May 30 1.3 mcL informa informa 2012 tion in tion in 3:32 PM source source data data Eos# 0.1 0.0 - x10(3)/ No No May 21 0.5 mcL informa informa 2013 tion in tion in 3:32 PM source source data data Baso# 0.1 0.0 - x10(3)/ No No May 30 0.2 mcL informa informa 2013 tion in tion in 3:32 PM source source data data CBC Observa Value Referen Units Interpr Notes Date tion ce etation Range LEUKOCY 13.6 4.0 - x10(3)/ High No May 30 ERIN 11.0 mcL informa 2012 tion in 3:32 PM source data Erythro 5.10 3.80 - x10(6)/ No No May 30 cytes 5.10 [facility] informa informa 2012 [#/volu tion in tion in 3:32 PM me] in source source Blood data data by Automat ed count Hemoglo 14.2 12.0 - gm/dL No No May 30 bin 15.6 informa informa 2012 [Mass/v tion in tion in 3:32 PM olume] source source in data data Blood Hematoc 42.4 35.7 - % No No May 30 rit 45.9 informa informa 2012 [Volume tion in tion in 3:32 PM source source Fractio data data n] of Blood by Automat ed count Erythro 83.2 82.5 - fL No No May 30 cyte 99.8 informa informa 2012 mean tion in tion in 3:32 PM corpusc source source ular data data volume [Entiti c volume] by Automat ed count Erythro 27.8 27.0 - pg No No May 30 cyte 34.3 informa informa 2012 mean tion in tion in 3:32 PM corpusc source source ular data data hemoglo bin [Entiti c mass] by Automat ed count Erythro 33.4 32.1 - gm/dL No No May 30 cyte 35.3 informa informa 2012 mean tion in tion in 3:32 PM corpusc source source ular data data hemoglo bin concent ration [Mass/v olume] by Automat ed count Erythro 18.1 11.5 - % High No May 30 cyte 15.0 inform2012 distrib tion in 3:32 PM ution source width data [Ratio] by Automat ed count Platele 302 144 - x10(3)/ No No May 30 ts 423 mcL informa informa 2012 [#/volu tion in tion in 3:32 PM me] in source source Blood data data by Automat ed count MPV 7.6 6.8 - fL No No May 30 10.8 informa informa 2012 tion in tion in 3:32 PM source source data data Est Frac TMS-ARUP Observa Value Referen Units Interpr Notes Date tion ce etation Range Estradi 11.7 No pg/mL No REFEREN Apr 29 ol informa informa CE 2012 byTMS-A tion in tion in INTERVA 11:16 RUP source source L: PM data data Estradi ol by TMS\.br \\.br\A ccess complet e set of age- and/or gender- specifi c\.br\r eferenc e interva ls for this test in the [employer] or\.br \Test Directo ry ([employer]). \.br\\. br\Test develop ed and charact eristic s determi eugene by [employer]\.b r\Labor atories . See Complia nce Stateme nt B: Anipipo .[employer]/ Estrone 26.5 No pg/mL No REFEREN Apr 29 by informa informa CE 2012 TMS-ARU tion in tion in INTERVA 11:16 P source source L: PM data data Estrone by TMS\.br \\.br\A ccess complet e set of age- and/or gender- specifi c\.br\r eferenc e interva ls for this test in the [employer] ory\.br \Test Directo ry ([employer]). \.br\\. br\Test develop ed and charact eristic s determi eugene by [employer]\.b r\Labor atories . See Complia nce Stateme nt B: 100e[employer]/ Estroge 38.2 No pg/mL No \.br\Re Sep 20 ns informa informa ference 2012 Total-A tion in tion in 11:16 RUP source source interva PM data data l of estroge ns in serum in adults. \.br\\. br\Fema les: Estrone Estradi ol Total Estroge ns\.br\ (pg/ml) (pg/ml) (pg/ml) \.br\Ea rly follicu lar <150 30-100 30-250\ .br\Lat e follicu lar 100-250 100-400 200-650 \.br\Beckie teal <200 50-150 50-350\ .br\ Post-me nopausa l 3-32 2-21 5-52\.b r\REFER ENCE INTERVA L: Estroge ns Total Calcula tion\.b r\\.br\ Access complet e set of age- and/or gender- specifi c\.br\r eferenc e interva ls for this test in the [employer] ory\.br \Test Directo ry ([employer]). Testost Observa Value Referen Units Interpr Notes Date tion ce etation Range Testost 14 6 - 77 ng/dL No Apr 27 erone informa Note: 2012 Lvl tion in Referen 11:13 source ce PM data range based on 8:00 AM standar d. LH Observa Value Referen Units Interpr Notes Date tion ce etation Range Lutropi 27.8 No mIU/mL No Suggest Apr 27 n informa informa ed 2012 [Moles/ tion in tion in Referen 10:57 volume] source source ce PM in data data Ranges Serum (mIU/mL or )\.br\\ Plasma .br\Pos tmenopa usal Female 13 - 87\.br\ Follicu lar Phase Female 3 - 12\.br\ Luteal Phase Female 1 - 16 FSH Observa Value Referen Units Interpr Notes Date tion ce etation Range Follitr 52.9 No mIU/mL No Suggest Apr 27 opin informa informa ed 2012 [Moles/ tion in tion in Referen 10:57 volume] source source ce PM in data data Range Serum (mIU/mL or )\.br\\ Plasma .br\Pos tmenopa usal Female 22 - 130\.br \Follic ular Phase Female 2 - 12\.br\ Luteal Phase Female 1 - 10 Progest Observa Value Referen Units Interpr Notes Date tion ce etation Range Progest 0.2 No ng/mL No Suggest Sep 18 erone informa informa ed 2013 Lvl tion in tion in Referen 10:51 source source ce PM data data Ranges (ng/mL) \.br\\. br\Fema les:\.b r\ Follicu lar Phase 0.1 - 1.7\.br \ Luteal Phase 1.0 - 22.4\.b r\ Mid-Lut eal Phase 6.0 - 24.0\.b r\\.br\ Pregnan t Females \.br\ 4 - 12 weeks gestati on 11.0 - 43.0 Hemogram Observa Value Referen Units Interpr Notes Date tion ce etation Range LEUKOCY 10.9 4.0 - x10(3)/ No No Sep 18 ERIN 11.0 mcL informa informa 2013 tion in tion in 8:48 PM source source data data Erythro 5.22 3.80 - x10(6)/ High No Sep 18 cytes 5.10 [facility] informa 2012 [#/volu tion in 8:48 PM me] in source Blood data by Automat ed count Hemoglo 13.7 12.0 - gm/dL No No Sep 18 bin 15.6 informa informa 2012 [Mass/v tion in tion in 8:48 PM olume] source source in data data Blood Hematoc 43.3 35.7 - % No No Sep 18 rit 45.9 informa informa 2013 [Volume tion in tion in 8:48 PM source source Fractio data data n] of Blood by Automat ed count Erythro 82.9 82.5 - fL No No Sep 18 cyte 99.8 informa informa 2013 mean tion in tion in 8:48 PM corpusc source source ular data data volume [Entiti c volume] by Automat ed count Erythro 26.2 27.0 - pg Low No Sep 18 cyte 34.3 informa 2012 mean tion in 8:48 PM corpusc source ular data hemoglo bin [Entiti c mass] by Automat ed count Erythro 31.7 32.1 - gm/dL Low No Sep 18 cyte 35.3 informa 2012 mean tion in 8:48 PM corpusc source ular data hemoglo bin concent ration [Mass/v olume] by Automat ed count Erythro 21.4 11.5 - % High No Sep 18 cyte 15.0 informa 2012 distrib tion in 8:48 PM ution source width data [Ratio] by Automat ed count Platele 260 144 - x10(3)/ No No Sep 18 ts 423 mcL informa informa 2013 [#/volu tion in tion in 8:48 PM me] in source source Blood data data by Automat ed count MPV 9.0 6.8 - fL No No Sep 18 10.8 informa informa 2013 tion in tion in 8:48 PM source source data data Vit D 25-OH Observa Value Referen Units Interpr Notes Date tion ce etation Range Vitamin 48.9 30.0 - ng/mL No INTERPR Feb 24 D-25 120.0 informa ETIVE 2013 [place] tion in INFORMA 10:52 source TION: AM data Vitamin D, 25-Hydr oxy\.br \\.br\< 20 ng/mL Deficie ncy\.br \20 - 29 ng/mL Insuffi ciency\ .br\30 - 80 ng/mL Optimum Level\. br\>120 ng/mL Possibl e Toxicit y\.br\\ .br\NOT E: For infants and childre n up to 17 years of age, the optimum level is >=20 ng/mL. This assay accurat carlos quantif ies the sum of vitamin D3, 25-Hydr oxy and vitamin D2, 25-Hydr oxy.\.b r\ B12/ FA Observa Value Referen Units Interpr Notes Date tion ce etation Range CYANOCO 437 239 - pg/mL No No Feb 23 BALAMIN 931 informa informa 2013 .TRUE tion in tion in 9:54 PM source source data data Folic 7.19 3.00 - ng/mL No No Feb 23 Acid 20.00 informa informa 2012 Lvl tion in tion in 9:54 PM source source data data TSH Observa Value Referen Units Interpr Notes Date tion ce etation Range Thyrotr 1.420 0.300 - mcIU/mL No No Feb 23 opin 5.000 informa informa 2012 [Units/ tion in tion in 9:21 PM volume] source source in data data Serum or Plasma Glyco Observa Value Referen Units Interpr Notes Date tion ce etation Range Hemoglo 6.3 <=7.0 % No Initial Feb 23 bin informa 2012 A1c/Hem tion in Diagnos 9:14 PM oglobin source tic .total data Criteri in a\.br\< Blood 5.7 % Normal\ .br\5.7 - 6.4 % At risk for diabete s mellitu s\.br\> = 6.5 % Consist ent with diabete s mellitu s\.br\\ .br\Cheri betes monitor ing\.br \Target Value (ADA recomme nded): < 7 %\.br\ Free T4 Observa Value Referen Units Interpr Notes Date tion ce etation Range Thyroxi 1.5 0.8 - ng/dL No No Feb 23 ne (T4) 2.0 informa informa 2012 free tion in tion in 9:07 PM [Mass/v source source olume] data data in Serum or Plasma Free T3 Observa Value Referen Units Interpr Notes Date tion ce etation Range T3 Free 3.23 2.77 - pg/mL No No Feb 23 5.27 informa informa 2012 tion in tion in 9:07 PM source source data data Lipid Scr Observa Value Referen Units Interpr Notes Date tion ce etation Range Cholest 153 <=200 mg/dL No < 200 Feb 23 lizabeth informa 2012 [Percen tion in 8:55 PM tile] source Desirab data le\.br\ 200 - 239 Borderl ine High\.b r\>= 240 High\.b r\\.br\ TRIGLYC 206 <=150 mg/dL High < 150 Feb 23 ERIDES. 2013 TOTAL Normal\ 8:55 PM .br\150 - 199 Borderl ine High\.b r\200 - 499 High\.b r\ >= 500 Very High\.b r\ CHOLEST 27 >=40 mg/dL Low > 60 Feb 23 EROLS.I 2013 N HDL Optimal 8:55 PM \.br\40 - 60 Accepta ble\.br \ < 40 Low\.br \ LDL 85 <=100 mg/dL No < 100 Feb 23 Calcula informa 2013 true tion in 8:56 PM source Optimal data \.br\10 0 - 129 Near or above optimal \.br\13 0 - 159 Borderl ine High\.b r\160 - 189 High\.b r\ >= 190 Very High\.b r\\.br\ Hepatic Pa Observa Value Referen Units Interpr Notes Date tion ce etation Range Protein 6.7 6.0 - gm/dL No No Feb 23 8.2 informa informa 2012 [Mass/v tion in tion in 8:55 PM olume] source source in data data Serum or Plasma Albumin 3.2 3.5 - gm/dL Low No Feb 23 4.5 informa 2012 [Mass/v tion in 8:55 PM olume] source in data Serum or Plasma Bilirub 0.3 0.0 - mg/dL No No Feb 23 in.dire 0.4 informa informa 2012 ct tion in tion in 8:55 PM [Mass/v source source olume] data data in Serum or Plasma Bilirub 0.3 0.1 - mg/dL No No Feb 23 in.tota 1.3 informa informa 2013 l tion in tion in 8:55 PM [Mass/v source source olume] data data in Serum or Plasma ASPARTA 44 14 - 36 IU/L High No Feb 23 TE informa 2012 AMINOTR tion in 8:55 PM ANSFERA source SE data Alanine 75 6 - 60 IU/L High No Feb 23 informa 2012 aminotr tion in 8:55 PM ansfera source se data [Enzyma tic activit y/volum e] in Serum or Plasma Alkalin 139 41 - IU/L High No Feb 23 e 119 informa 2012 phospha tion in 8:55 PM tase source [Enzyma data tic activit y/volum e] in Serum or Plasma Hemogram Observa Value Referen Units Interpr Notes Date tion ce etation Range LEUKOCY 12.1 4.0 - x10(3)/ High No Feb 23 ERIN 11.0 mcL informa 2012 tion in 8:32 PM source data Erythro 4.33 3.80 - x10(6)/ No No Feb 23 cytes 5.10 mcL informa informa 2012 [#/volu tion in tion in 8:32 PM me] in source source Blood data data by Automat ed count Hemoglo 10.8 12.0 - gm/dL Low No Feb 23 bin 15.6 informa 2013 [Mass/v tion in 8:32 PM olume] source in data Blood Hematoc 34.2 35.7 - % Low No Feb 23 rit 45.9 informa 2012 [Volume tion in 8:32 PM source Fractio data n] of Blood by Automat ed count Erythro 79.0 82.5 - fL Low No Feb 23 cyte 99.8 informa 2012 mean tion in 8:32 PM corpusc source ular data volume [Entiti c volume] by Automat ed count Erythro 24.9 27.0 - pg Low No Feb 23 cyte 34.3 informa 2012 mean tion in 8:32 PM corpusc source ular data hemoglo bin [Entiti c mass] by Automat ed count Erythro 31.6 32.1 - gm/dL Low No Feb 23 cyte 35.3 informa 2012 mean tion in 8:32 PM corpusc source ular data hemoglo bin concent ration [Mass/v olume] by Automat ed count Erythro 18.3 11.5 - % High No Feb 23 cyte 15.0 informa 2012 distrib tion in 8:32 PM ution source width data [Ratio] by Automat ed count Platele 395 144 - x10(3)/ No No Feb 23 ts 423 mcL informa informa 2012 [#/volu tion in tion in 8:32 PM me] in source source Blood data data by Automat ed count MPV 8.0 6.8 - fL No No Feb 23 10.8 informa informa 2012 tion in tion in 8:32 PM source source data data XR CHEST AP PORTABLE Observa Value Referen Units Interpr Notes Date tion ce etation Range TEXT AP No No No No Oct 13 DIAGNOS chest, informa informa informa informa 2012 IS tion in tion in tion in tion in 1:39 PM BATTERY 3\.br\\ source source source source .br\COM data data data data [place] : 11/26/19 12\.br\ \.br\HI STORY: Chest pain\.b r\\.br\ IMPRESS ION: Lungs clear, no acute disease . EK EKG 12 LEAD Observa Value Referen Units Interpr Notes Date tion ce etation Range Sinus No No No No Oct 6 tachyca informa informa informa informa 2013 rdia\.b tion in tion in tion in tion in 12:04 r\\.br\ source source source source PM Normal data data data data ECG except for rate MRI THORACIC SPINE WO CONTRAST Observa Value Referen Units Interpr Notes Date ti ce etation Range TEXT MRI of No No No No Sep 14 DIAGNOS the informa informa informa informa 2012 IS thoraci tion in tion in tion in tion in 5:15 PM BATTERY c spine source source source source data data data data without contras t, 3HISTOR Y: Right shoulde r and rib cage pain. Right breast pain.FI NDINGS: Compari son is made with two-vie w chest x-ray dated 11/26/19 12.The thoraci c vertebr al bodies are normal in height and alignme nt. No acuteth oracic benji sionfra cture is seen. The thoraci c spinal cord is normal in caliber andsign al. No thoraci c cordcom pressio n is identif ied.At T11-T12 , mild left paracen tral discoge li changes are identif ied, whichmi ldly benji s thevent ral aspect of the thecal sac in a left paracen tral locatio n without evidenc e of thoraci ccord or nerve root benji marycarmen. The remaini ng thoraci c interve rtebral discspa berna are normal. Small benign vertebr al body hemangi omas are inciden tally noted within theT7 and T11 vertebr albodie s.IMPRE SSION: Mild left paracen tral discoge li changes at T11-T12 . Otherwi senorma l MRI of thethor acic spine without contras t. MRI CERVICAL SPINE WO CONTRAST Observa Value Referen Units Interpr Notes Date tion ce etation Range TEXT MRI of No No No No Sep 14 DIAGNOS the informa informa informa informa 2013 IS cervica tion in tion in tion in tion in 4:48 PM BATTERY l spine source source source source data data data data without contras t, 3HISTOR Y: Neck and right shoulde r pain.FI NDINGS: Compari son is made with prior cervica l spine MRI dated 02/24/20 05.The cervica l vertebr al bodies are normal in height and alignme nt. Thecerv ical spinal cord isnorma l in caliber and signal. At C2-C3, minimal central discoge li changes are identif ied, whichmi nimally indent the ventral aspect of the thecal sac without evidenc e of cervica l cord or nerve rootcom pressio n.At C3-C4, mild diffuse discoge li changes are identif ied, which appearm ore focally promine ntin right paracen tral and right foramin al locatio ns, which mildly benji sthe ventral aspect ofthe thecal sac and cause moderat e narrowi ng of the right C4 neuralf oramen. At C4-C5, mild diffuse discoge li changes are identif ied, which appearm ore focally promine ntin a right paracen tral locatio n, mildly benji s the ventral aspect of thethec al sac, slightl ygreate r in a right paracen tral locatio n.At C5-C6, mild diffuse discoge li changes are identif ied, which appearm ore focally promine ntin right paracen tral and right foramin al locatio ns, which mildly benji sthe ventral aspect ofthe thecal sac, slightl y greater in a right paracen tral locatio n andcaus e moderat e narrowi ngof the right C6 neural foramen , potenti ally causing a mechani sm forcomp ression of the right [id number] roots and nerve in right paracen tral and right foramin al locatio ns.The C6-C7 and C7-T1 interve rtebral disc spaces are normal. IMPRESS ION: Diffuse discoge li changes at C5-C6, which appear more focally promine nt in rightpa racentr al and right foramin al locatio ns, which cause moderat e narrowi ngof the right T7nyuln l foramen , potenti ally causing a mechani sm for benji marycarmen of therigh t C6 nerve roots andnerv e in right paracen tral and right foramin al locatio ns.Othe r milder multile brian discoge li changes of the cervica l spine asdescr ibed above.
--- OUTSIDE RECORDS SUMMARY | 2017-01-12 15:49 | External Medical Summary Rpt ---
[...] in 5:12 PM source source data data [place]# 0.6 0.0 - x10(3)/ No No Feb [...] Range No No No No May 21 016\\.br informa informa informa informa 2015 \\\\.br\\L tion in tion in tion in tion in 4:06 PM eft source source source source ankle data data data data series, 3 views:\\ .br\\\\.b r\\Histo ry: Chronic pain. No history of acute trauma. Prior compari son study,\\ .br\\04/11. \\.br\\\\. br\\Stab le alignme nt of the ankle mortise . No visuali zed fractur e or\\.br\\ signifi cant\\.b r\\degen erative process . Promine nt plantar bony calcane al spur. Depende nt soft\\.b r\\tissu e edema involvi ng the ankle and foot suspect ed.\\.br \\\\.br\\I MPRESSI ON:\\.br \\Impres marycarmen:\\. br\\\\.br \\Suspec t depende nt soft tissue edema of the left lower extremi ty. Stable\\ .br\\ali gnment of the left ankle. No evidenc e of fractur e.\\.br\\ XR KNEE RIGHT AP LATERAL AND AXIAL Observa Value Referen Units Interpr Notes Date ti ce etation Range No No No No May 21 016\\.br informa informa informa informa 2015 \\\\.br\\R tion in tion in tion in tion in 4:06 PM ight source source source source knee data data data data series, 3 views:\\ .br\\\\.b r\\Histo ry: Prior surgery . Compari son with 02/27/20 16 study.\\ .br\\\\.b r\\Satis factory alignme nt of tibial and femoral compone nts. No evidenc e of\\.br\\ fractur e. Minimal anterio r soft tissue swellin g.\\.br\\ \\.br\\IM PRESSIO N:\\.br\\ Impress ion:\\.b r\\\\.br\\ Satisfa ctory alignme nt, right total knee arthrop lasty.\\ .br\\ XR ANKLE LEFT AP LATERAL AND OBLIQUE Observa Value Referen Units Interpr Notes Date tion ce etation Range XR No No No No Apr 30 ANKLE informa informa informa informa 2015 LEFT AP tion in tion in tion in tion in 4:20 PM source source source source LATERAL data data data data AND OBLIQUE 04/30/20 16 4:20 PM\\.br\\ \\.br\\HI STORY: Pain Z98.89- Other specifi ed postpro cedural states- ICD-10- CM\\.br\\ M77.52- Other entheso juan of left foot-IC D-10-CM \\.br\\M1 9.90-Un specifi ed osteoar thritis , unspeci fied site-IC D-10-CM \\.br\\\\. br\\TECH NIQUE: 3 views\\. br\\\\.br \\COMPAR EULALIA: er 2015\\.b r\\\\.br\\ FINDING S:\\.br\\ \\.br\\Th ere is a band of scleros is again seen within the distal tibia, with\\.b r\\adjac ent\\.br \\mild periost itis at the tibial metadia physis. This is compati ble with a\\.br\\h igh-gra de stress fractur e. There is superim posed mild focal\\. br\\oste oarthri tis.\\.b r\\Promi nent plantar heel spur is noted.\\ .br\\\\.b r\\IMPRE SSION:\\ .br\\\\.b r\\1. High-gr mark distal tibial stress fractur e as above with adjacen t mild\\.b r\\perio stitis\\ .br\\ XR KNEE LEFT AP LATERAL AND AXIAL Observa Value Referen Units Interpr Notes Date tion ce etation Range \\.br\\XR No No No No Apr 21 KNEE informa informa informa informa 2015 LEFT AP tion in tion in tion in tion in 4:20 PM source source source source LATERAL data data data data AND AXIAL 04/30/20 16 4:20 PM\\.br\\ \\.br\\HI STORY: Z98.89- Other specifi ed postpro cedural states- ICD-10- CM\\.br\\ M77.52- Other entheso juan of left foot-IC D-10-CM \\.br\\M1 9.90-Un specifi ed osteoar thritis , unspeci fied site-IC D-10-CM .\\.br\\\\ .br\\\\.b r\\\\.br\\ COMPARE : December 12, 2015\\.b r\\\\.br\\ FINDING S:\\.br\\ \\.br\\Th ere is moderat e osteoar thritis in all 3 compart ments of the knee stable\\ .br\\fro m\\.br\\p rior study with moderat e medial compart ment joint space narrowi ng. Less\\.b r\\sever e\\.br\\l ateral and patello femoral joint space narrowi ng with associa true spurrin g\\.br\\p resent. There is a suprapa tellar joint effusio n.\\.br\\ \\.br\\Th ere is no signifi cant change from prior\\. br\\\\.br \\IMPRES MARYCARMEN:\\. br\\\\.br \\Mild to moderat e tricomp artment al osteoar thritis stable\\ .br\\ XR ANKLE LEFT AP LATERAL AND OBLIQUE Observa Value Referen Units Interpr Notes Date tion ce etation Range \\.br\\LE No No No No Sep 7 FT informa informa informa informa 2015 ANKLE 3 tion in tion in tion in tion in 3:19 PM VIEWS, source source source source data data data data 6 3:45 PM\\.br\\ \\.br\\IN DICATIO NS: Entheso juan of the LEFT foot\\.b r\\\\.br\\ FINDING S: There is a suggest ion of some mild swellin g of the distal\\ .br\\Ach illes\\. br\\tend on at the calcane al inserti on. Some age-ian ropriat e and mild\\.b r\\osteo arthrit ic\\.br\\ alterat ions are present . Numerou s transve rse growth arrest lines are\\.br \\presen t\\.br\\i nvolvin g the distal tibia. Additio vesna, there is some transve rse\\.br \\sclero sis of\\.br\\ the tibial metaphy sis with smudgy margins . No acute transco rtical fractur e.\\.br\\ \\.br\\IM PRESSIO N:\\.br\\ \\.br\\1. Mild swellin g of the distal [place] s tendon suggest ing Deisy s\\.br\\t endinos is.\\.br \\2. Transve rsely oriente d scleros is of the distal tibial metaphy sis. This\\.b r\\could \\.br\\po tential ly reflect a stress fractur e. Correla te with clinica l factors .\\.br\\\\ .br\\Cod e jot next s day.\\.b r\\ XR KNEE RIGHT AP LATERAL AND AXIAL Observa Value Referen Units Interpr Notes Date tion ce etation Range EXAMINA No No No No Feb 26 TION: informa informa informa informa 2016 XR KNEE tion in tion in tion in tion in 4:22 PM RIGHT source source source source AP data data data data LATERAL AND AXIAL\\. br\\\\.br \\DATE: 02/27/20 16 4:22 PM\\.br\\ \\.br\\HI STORY: Status post knee arthrop lasty.\\ .br\\\\.b r\\JEY RISON: Right knee radiogr aphs 02/18/20 16.\\.br \\\\.br\\T ECHNIQU E: 3 views of the right knee.\\. br\\\\.br \\FINDIN GS: A noncons trained total knee prosthe sis is noted. There are also\\.b r\\posts urgical changes of patella r resurfa cing. There is no acute fractur e\\.br\\o r\\.br\\d esiccat ion. Soft tissue swellin g persist s, and skin may are noted\\. br\\ante riorly. \\.br\\\\. br\\IMPR ESSION: \\.br\\\\. br\\Stat us post patella r resurfa cing and noncons trained total knee prosthe sis\\.br \\placem ent without evidenc e of acute fractur e or disloca tion.\\. br\\ H and H Observa Value Referen Units [...] source source data data data data 02/18/20 16\\.br\\ \\.br\\HI STORY: Status post right knee arthrop lasty\\. br\\\\.br \\2 views of the right knee show prior 3 compone nt arthrop lasty has been\\.b r\\perfo rmed. Compone nts articul ate as expecte d. No fractur e or disloca tion\\.b r\\ident ified.\\ .br\\\\.b r\\Impre ssion:\\ .br\\1. Uncompl icated appeari ng right knee followi ng arthrop lasty.\\ .br\\ ABSC IgG Observa Value Referen Units Interpr [...] in tion in tion in 2:11 PM Study\\. source source source source br\\St. data data data data Elizabe th Edgewoo d\\.br\\I nterpre tive Stateme nts\\.br \\SINUS TACHYCA RDIA\\.b r\\ABNOR MAL RHYTHM ECG\\.br \\Nonspe cific T wave changes \\.br\\El ectroni yvan Signed On 6 17:41:4 1 [...] The aPTT should not exceed 100 seconds .\\.br\\T he dosage of Argatro ban should be decreas ed in patient s with hepatic impairm ent. The dosage of Lepirud in should be decreas ed in renal insuffi ciency. \\.br\\\\. br\\The aPTT is no longer the appropr iate [...] Indicat Coagula ions tion Target assay INR Range\\. br\\\\.br \\Standa rd Dose Treatme nt and prophyl axis of venous 2.0 - 3.0\\.br \\ thrombo sis, pulmona ry embolis m\\.br\\\\ .br\\ High Dose High risk patient s with mechani davy 2.5 - 3.5\\.br \\ heart valves Auto Diff Observa Value Referen [...] in 2:49 PM source source data data [place]# 0.7 0.0 - x10(3)/ No No Feb [...] The aPTT should not exceed 100 seconds .\\.br\\T he dosage of Argatro ban should be decreas ed in patient s with hepatic impairm ent. The dosage of Lepirud in should be decreas ed in renal insuffi ciency. \\.br\\\\. br\\The aPTT is no longer the appropr iate [...] Indicat Coagula ions tion Target assay INR Range\\. br\\\\.br \\Standa rd Dose Treatme nt and prophyl axis of venous 2.0 - 3.0\\.br \\ thrombo sis, pulmona ry embolis m\\.br\\\\ .br\\ High Dose High risk patient s with mechani davy 2.5 - 3.5\\.br \\ heart valves UA Observa Value Referen Units [...] data UA Negativ Negativ No No No Loltia 2 Blood e e informa informa informa [...] in 12:42 source source PM data data [place]# 0.4 0.0 - x10(3)/ No No Lolita [...] data data data examina tion at the [facility] are Vascula r Laborat ory.\\.b r\\The complet e report can be found in the [facility] ([facility]) Electro li Medical Record of the [...] AP data data data data LATERAL AND AXIAL\\. br\\\\.br \\DATE: 1:56 PM\\.br\\ \\.br\\HI STORY: Left knee pain.\\. br\\\\.br \\COMPAR EULALIA: MRI right knee 015.\\.b r\\\\.br\\ TECHNIQ UE: 3 views of the left knee.\\. br\\\\.br \\FINDIN GS: There is mild lateral patella r trackin g.\\.br\\ \\.br\\Th e patient is osteope li. There is no displac ed fractur e or malalig nment.\\ .br\\Mod erate to advance d osteoar throsis is noted, with medial joint space\\. br\\narr owing\\. br\\and tricomp artment al osteoph yte formati on. There is moderat e capsula r\\.br\\d istenti on.\\.br \\\\.br\\D egenera tive entheso pathic changes are noted at the quadric eps tendon\\ .br\\ins ertion. \\.br\\\\. br\\IMPR ESSION: \\.br\\\\. br\\1. Negativ e for displac ed fractur e or malalig nment.\\ .br\\2. Moderat e to advance d tricomp artment al osteoar throsis .\\.br\\3 . Moderat e capsula r distent ion.\\.b r\\\\.br\\ The patient has finding s of an inflamm atory arthrop athy in the\\.br \\contra lateral \\.br\\kn ee. Please correla te with the patient 's history .\\.br\\ VA US LOWER EXTREMITY VENOUS RIGHT Observa Value Referen Units Interpr Notes Date ti ce etation Range This No No No No Oct 30 patient informa informa informa informa 2015 tion in tion in tion in tion in 3:13 PM receive source source source source d an data data data data examina tion at the [facility] are Vascula r Laborat ory.\\.b r\\The complet e report can be found in the [facility] ([facility]) Electro li Medical Record of the [...] The aPTT should not exceed 100 seconds .\\.br\\T he dosage of Argatro ban should be decreas ed in patient s with hepatic impairm ent. The dosage of Lepirud in should be decreas ed in renal insuffi ciency. \\.br\\\\. br\\The aPTT is no longer the appropr iate [...] Indicat Coagula ions tion Target assay INR Range\\. br\\\\.br \\Standa rd Dose Treatme nt and prophyl axis of venous 2.0 - 3.0\\.br \\ thrombo sis, pulmona ry embolis m\\.br\\\\ .br\\ High Dose High risk patient s with mechani davy 2.5 - 3.5\\.br \\ heart valves CBC Observa Value Referen Units [...] in 1:32 PM source source data data [place]# 0.4 0.0 - x10(3)/ No No Aug [...] tion in tion in tion in 12:12 Study\\. source source source source PM br\\St. data data data data Eliedenbe th Edgewoo d\\.br\\I nterpre tive Stateme nts\\.br \\SINUS RHYTHM\\ .br\\Leonila ctronic ally Signed On 015 16:57:3 1 [...] AP data data data data LATERAL AND AXIAL\\. br\\\\.br \\Date: 015 3:10 PM.\\.br \\\\.br\\H istory: M17.9-O steoart hritis of knee, unspeci fied-IC D-10-CM ;\\.br\\M 71.21-S ynovial \\.br\\cy st of poplite al space ([place]) , right knee-IC D-10-CM . The technol ogist\\. br\\repo rts\\.br \\chroni c knee pain.\\. br\\\\.br \\Compar eulalia: Right knee radiogr aphs 03/07/20 15; MRI right knee 015..\\. br\\\\.br \\Techni que: 3 views of the right knee patella r trackin g is neutral ..\\.br\\ \\.br\\Fi ndings/ \\.br\\Im pressio n: The patient is osteope li. Patella r trackin g is neutral . There\\. br\\is no\\.br\\ displac ed fractur e, subluxa tion, or disloca tion. There are severe\\ .br\\tri compart mental degener ative joint changes , with joint space reducti on\\.br\\ disprop ortiona tely promine nt to the amount of osteoph yte formati on. While\\. br\\the\\ .br\\fin dings of osteoph yte paucity may be seconda ry to osteope vanna, and\\.br \\inflam matory\\ .br\\art hropath y may explain these finding s as suggest ed by the promine nt\\.br\\ synovit is\\.br\\ on the compari son MRI. Densiti es within the suprapa tellar recess likely\\ .br\\ref lect\\.b r\\intra -articu lar bodies. There is moderat e to severe capsula r distent ion.\\.b r\\ MRI KNEE RIGHT WO CONTRAST Observa Value Referen Units Interpr Notes Date tion ce etation Range MRI No No No No May 21 KNEE informa informa informa informa 2014 RIGHT tion in tion in tion in tion in 4:20 PM WO source source source source CONTRAS data data data data T 015 4:20 PM\\.br\\ \\.br\\HI STORY: Right knee pain and swellin g, history of rheumat oid arthrit is.\\.br \\S86.91 1A-Stra in of unspeci fied muscle( s) and tendon( s) at lower leg level,\\ .br\\rig ht\\.br\\ leg, initial encount er-ICD- 10-CM\\. br\\M25. 561-Wilmar n in right knee-IC D-10-CM \\.br\\\\. br\\TECH NIQUE: Routine MRI of the right knee without contras t\\.br\\\\ .br\\COM PARISON : X-ray March 07, 2015\\.b r\\\\.br\\ FINDING S:\\.br\\ \\.br\\Th ere is a moderat e suprapa tellar joint effusio n with exubera nt synovit is\\.br\\ noted.\\ .br\\Com plete chondra l denudat ion within the patello femoral compart ment and\\.br \\large\\ .br\\are as of high-gr mark chondra l loss within the medial compart ment are noted.\\ .br\\Gra de\\.br\\ 2 and 3 chondra l thinnin g in the lateral compart ment with superim posed\\. br\\grad e 4\\.br\\c hondral fissuri ng. Periart icular edema is evident particu larly within the\\.br \\patell ofemora l and medial compart ments. There is subchon dral cystic change\\ .br\\of\\ .br\\the central weightb earing aspect of the medial lateral femoral condyle s\\.br\\a nd\\.br\\ medial tibial plateau .\\.br\\\\ .br\\The re is degener ative tearing involvi ng the body of the lateral meniscu s.\\.br\\ The\\.br \\medial meniscu s is intact. ACL and PCL are intact. The medial collate ral\\.br \\ligame nt and the lateral collate ral ligamen t complex are intact. The\\.br \\extens or\\.br\\ mechani sm and patello femoral retinac marce are intact. \\.br\\\\. br\\Ther e is no fractur e and there is no marrow replaci ng process .\\.br\\\\ .br\\IMP RESSION :\\.br\\\\ .br\\1. Severe chondra l loss with osteoph yte formati on particu larly within the\\.br \\patell ofemora l and medial compart ments. Interme diate grade chondra l loss\\.b r\\withi n\\.br\\t he lateral compart ment. The amount of bony hypertr ophy, as well as\\.br\\ asymmet tahmina\\.br \\involv ement of the joint, is compati ble with severe osteoar thritis .\\.br\\2 . There is a superim posed moderat e joint effusio n with severe synovit is.\\.br \\These\\ .br\\fin dings can be seen in the setting of osteoar thritis , however given\\. br\\hist ory of\\.br\\ rheumat oid arthrit is, an inflamm atory arthrop athy could certain ly be\\.br\\ involve d\\.br\\s econdar y to the degener ative changes as above.\\ .br\\3. Degener ative tearing of the body of the lateral meniscu s.\\.br\\ Vit D 25-OH Observa Value Referen Units Interpr Notes Date tion ce etation Range Vitamin 33.2 30.0 - ng/mL No INTERPR Sep 11 D-25 120.0 informa ETIVE 2014 [place] tion in INFORMA 8:31 AM source TION: data Vitamin D, 25-Hydr oxy\\.br \\\\.br\\< 20 ng/mL Deficie ncy\\.br \\20 - 29 ng/mL Insuffi ciency\\ .br\\30 - 80 ng/mL Optimum Level\\. br\\>120 ng/mL Possibl e Toxicit y\\.br\\\\ .br\\NOT E: For infants and childre n up [...] oglobin source tic .total data Criteri in a\\.br\\< Blood 5.7 % Normal\\ .br\\5.7 - 6.4 % At risk for diabete s mellitu s\\.br\\> = 6.5 % Consist ent with diabete s mellitu s\\.br\\\\ .br\\Cheri betes monitor ing\\.br \\Target Value (ADA recomme nded): < 7 % [...] in 10:13 tile] source Desirab PM data le\\.br\\ 200 - 239 Borderl ine High\\.b r\\>= 240 High TRIGLYC 156 <=150 mg/dL High < 150 Sep 10 ERIDES. 2015 TOTAL Normal\\ 10:13 .br\\150 PM - 199 Borderl ine High\\.b r\\200 - 499 High\\.b r\\ >= 500 Very High CHOLEST 31 >=40 mg/dL Low > 60 Sep 10 EROLS.I 2014 N HDL Optimal 10:13 \\.br\\40 PM - 60 Accepta ble\\.br \\ < 40 Low LDL 106 <=100 mg/dL High < 100 Sep 10 Calcula 2015 true 10:13 Optimal PM \\.br\\10 0 - 129 Near or above optimal \\.br\\13 0 - 159 Borderl ine High\\.b r\\160 - 189 High\\.b r\\ >= 190 Very High Free T4 Observa [...] knee 3 informa informa informa informa 2014 views\\. tion in tion in tion in tion in 1:35 PM br\\\\.br source source source source \\ data data data data 015\\.br \\\\.br\\C ompare: None availab le\\.br\\ \\.br\\CL INICAL HISTORY : chronic pain\\.b r\\\\.br\\ FINDING S:\\.br\\ \\.br\\Th ere is a small suprapa tellar joint effusio n\\.br\\\\ .br\\The re is a small accesso ry ossicle at the superio r pole of. There is\\.br\\ tricomp artment al\\.br\\ osteoar thritis with greates t narrowi ng in the lateral tibiofe moral\\. br\\comp artment .\\.br\\\\ .br\\No loose bodies. \\.br\\\\. br\\IMPR ESSION: \\.br\\\\. br\\Smal l joint effusio n. Mild tricomp artment [...] in 12:53 source source PM data data [place]# 0.5 0.0 - x10(3)/ No No Feb [...] data data data examina tion at the [facility] are Vascula r Laborat ory.\\.b r\\The complet e report can be found in the [facility] ([facility]) Electro li Medical Record of the patient . XR CHEST AP PORTABLE Observa Value Referen Units Interpr Notes Date ti ce etation Range Portabl No No No No January 04 e erect informa informa informa informa 2014 chest, tion in tion in tion in tion in 10:55 source source source source AM 01/05/20 data data data data 15, 1047 hours\\. br\\\\.br \\HISTOR Y: Left-si ded chest pain. Smoker. \\.br\\\\. br\\COMP ARISON: Several priors includi ng most recent from 3 and dating\\ .br\\estevan k to 07/14/20 11.\\.br \\\\.br\\H eart and mediast inum are normal. There is an approxi mately 2 cm somewha t\\.br\\r ounded increas ed\\.br\\ density superim posed upon the inferio r aspect of the left first\\. br\\cost ochondr al junctio n and the\\.br \\epic beacon specialists ior aspect of the left fifth rib. Althoug h this could represe nt\\.br\\ degener ative changes of\\.br\\ the costoch ondral junctio n, it appears increas ed from prior study and the\\.br \\possib ility of left\\.b r\\upper lobe nodule or neoplas m is not exclude d. Left mid and lower lung and\\.br \\the right lung are\\.br \\clear. \\.br\\\\. br\\IMPR ESSION: No acute finding s. There is approxi mately 2 cm increas ed\\.br\\ densiti es partial ly\\.br\\ superim posed upon the inferio r aspect left worse costoch ondral junctio n in\\.br\\ the posteri or left\\.b r\\fifth rib. This likely represe nts degener ative change of the costoch ondral\\ .br\\lolita ction but appears \\.br\\in creased . Possibi lity of lung nodule or neoplas m is not exclude d.\\.br\\ Surgica lly as patient has\\.br \\smokin g history , chest CT is suggest ed for further evaluat ion.\\.b r\\\\.br\\ Yazan er\\.br\\ \\.br\\Dr Maribell Hand er discuss ed chest x-ray finding s and recomme ndation for\\.br \\follow up chest CT with \\.br \\Tenisha at 1140 hours on 01/05/20 15. BMP [...] - x10(3)/ High No January 04 7.7 Health system informa 2014 tion in 11:12 source AM data Lymph# 3.1 0.6 - x10(3)/ No No January 04 4.8 Health system informa informa 2014 tion in tion in 11:12 source source AM data data [place]# 0.5 0.0 - x10(3)/ No No January 04 1.3 mcL informa informa 2014 tion in tion in 11:12 source source AM data data Eos# 0.1 0.0 - x10(3)/ No No January 04 0.5 Health system informa informa 2014 tion in tion in 11:12 source source AM data data Baso# 0.2 0.0 - x10(3)/ No No January 04 0.2 Health system informa informa 2014 tion in tion in 11:12 source source AM data data CBC Observa Value Referen Units Interpr Notes Date tion ce etation Range LEUKOCY 11.9 4.0 - x10(3)/ High No January 04 ERIN 11.0 Health system informa 2014 tion in 10:54 source AM data Erythro 5.21 3.80 - x10(6)/ High No January 04 cytes 5.10 Health system informa 2014 [#/volu tion in 10:54 me] [...] tion in tion in tion in 10:26 Study\\. source source source source AM br\\St. data data data data Eliedenbe th Edgewoo d\\.br\\I nterpre tive Stateme nts\\.br \\SINUS RHYTHM\\ .br\\Leonila ctronic ally Signed On 2014-12 22:14:5 6 EDT by Samir Haskins MD Glyco Observa Value Referen Units Interpr Notes Date ti ce etation Range Hemoglo 5.0 <=7.0 % No Initial Oct 31 bin informa 2015 A1c/Hem tion in Diagnos 10:43 oglobin source tic AM .total data Criteri in a\\.br\\< Blood 5.7 % Normal\\ .br\\5.7 - 6.4 % At risk for diabete s mellitu s\\.br\\> = 6.5 % Consist ent with diabete s mellitu s\\.br\\\\ .br\\Cheri betes monitor ing\\.br \\Target Value (ADA recomme nded): < 7 % Vit D 25-OH Observa Value Referen Units Interpr Notes Date tion ce etation Range Vitamin 20.3 30.0 - ng/mL Low INTERPR Oct 24 D-25 120.0 ETIVE 2014 [place] INFORMA 8:33 AM TION: Vitamin D, 25-Hydr oxy\\.br \\\\.br\\< 20 ng/mL Deficie ncy\\.br \\20 - 29 ng/mL Insuffi ciency\\ .br\\30 - 80 ng/mL Optimum Level\\. br\\>120 ng/mL Possibl e Toxicit y\\.br\\\\ .br\\NOT E: For infants and childre n up [...] lizabeth 2015 [Percen 6:19 PM tile] Desirab le\\.br\\ 200 - 239 Borderl ine High\\.b r\\>= 240 High TRIGLYC 192 <=150 mg/dL High < 150 Oct 30 ERIDES. 2015 TOTAL Normal\\ 6:19 PM .br\\150 - 199 Borderl ine High\\.b r\\200 - 499 High\\.b r\\ >= 500 Very High CHOLEST 34 >=40 mg/dL Low > 60 Oct 30 EROLS.I 2014 N HDL Optimal 6:19 PM \\.br\\40 - 60 Accepta ble\\.br \\ < 40 Low LDL 154 <=100 mg/dL High < 100 Oct 30 Calcula 2015 true 6:19 PM Optimal \\.br\\10 0 - 129 Near or above optimal \\.br\\13 0 - 159 Borderl ine High\\.b r\\160 - 189 High\\.b r\\ >= 190 Very High Free T3 Observa [...] in 3:32 PM source source data data [place]# 0.6 0.0 - x10(3)/ No No May [...] x10(6)/ No No May 30 cytes 5.10 Health system informa informa 2012 [#/volu tion in tion [...] L: PM data data Estradi ol by TMS\\.br \\\\.br\\A ccess complet e set of age- and/or gender- specifi c\\.br\\r eferenc e interva ls for this test in the [employer] or\\.br \\Test Directo ry ([facility]po[facility]). \\.br\\\\. br\\Test develop ed and charact eristic s determi eugene by [employer]\\.b r\\Labor atories . See Complia nce Stateme nt B: [employer] .[employer] Plus | QuizScore/ Estrone 26.5 No pg/mL No REFEREN Apr 29 by informa informa CE 2012 TMS-ARU tion in tion in INTERVA 11:16 P source source L: PM data data Estrone by TMS\\.br \\\\.br\\A ccess complet e set of age- and/or gender- specifi c\\.br\\r eferenc e interva ls for this test in the [employer] ory\\.br \\Test Directo ry (Spoqa). \\.br\\\\. br\\Test develop ed and charact eristic s determi eugene by [facility]\\.b r\\Labor atories . See Complia nce Stateme nt B: RollCall (roll.to)/ Estroge 38.2 No pg/mL No \\.br\\Re Sep 20 ns informa informa ference 2012 Total-A tion in tion in 11:16 RUP source source interva PM data data l of estroge ns in serum in adults. \\.br\\\\. br\\Fema les: Estrone Estradi ol Total Estroge ns\\.br\\ (pg/ml) (pg/ml) (pg/ml) \\.br\\Ea rly follicu lar <150 30-100 30-250\\ .br\\Lat e follicu lar 100-250 100-400 200-650 \\.br\\Beckie teal <200 50-150 50-350\\ .br\\ Post-me nopausa l 3-32 2-21 5-52\\.b r\\REFER ENCE INTERVA L: Estroge ns Total Calcula tion\\.b r\\\\.br\\ Access complet e set of age- and/or gender- specifi c\\.br\\r eferenc e interva ls for this test in the [facility]\\.br \\Test Directo ry ([facility]). Testost Observa Value Referen Units Interpr Notes [...] in data data Ranges Serum (mIU/mL or )\\.br\\\\ Plasma .br\\Pos tmenopa usal Female 13 - 87\\.br\\ Follicu lar Phase Female 3 - 12\\.br\\ Luteal Phase Female 1 - 16 FSH Observa Value Referen Units Interpr Notes Date tion ce etation Range Follitr 52.9 No mIU/mL No Suggest Apr 27 opin informa informa ed 2012 [Moles/ tion in tion in Referen 10:57 volume] source source ce PM in data data Range Serum (mIU/mL or )\\.br\\\\ Plasma .br\\Pos tmenopa usal Female 22 - 130\\.br \\Follic ular Phase Female 2 - 12\\.br\\ Luteal Phase Female 1 - 10 Progest Observa Value Referen Units Interpr Notes Date tion ce etation Range Progest 0.2 No ng/mL No Suggest Sep 18 erone informa informa ed 2013 Lvl tion in tion in Referen 10:51 source source ce PM data data Ranges (ng/mL) \\.br\\\\. br\\Fema les:\\.b r\\ Follicu lar Phase 0.1 - 1.7\\.br \\ Luteal Phase 1.0 - 22.4\\.b r\\ Mid-Lut eal Phase 6.0 - 24.0\\.b r\\\\.br\\ Pregnan t Females \\.br\\ 4 - 12 weeks gestati on 11.0 - 43.0 Hemogram Observa Value Referen Units Interpr Notes Date tion ce etation Range LEUKOCY 10.9 4.0 - x10(3)/ No No Sep 18 ERIN 11.0 mcL informa informa 2013 tion in tion in 8:48 PM source source data data Erythro 5.22 3.80 - x10(6)/ High No Sep 18 cytes 5.10 Health system informa 2012 [#/volu tion in 8:48 PM [...] source TION: AM data Vitamin D, 25-Hydr oxy\\.br \\\\.br\\< 20 ng/mL Deficie ncy\\.br \\20 - 29 ng/mL Insuffi ciency\\ .br\\30 - 80 ng/mL Optimum Level\\. br\\>120 ng/mL Possibl e Toxicit y\\.br\\\\ .br\\NOT E: For infants and childre n up to 17 years of age, the optimum level is >=20 ng/mL. This assay accurat carlos quantif ies the sum of vitamin D3, 25-Hydr oxy and vitamin D2, 25-Hydr oxy.\\.b r\\ B12/ FA Observa Value Referen Units Interpr [...] oglobin source tic .total data Criteri in a\\.br\\< Blood 5.7 % Normal\\ .br\\5.7 - 6.4 % At risk for diabete s mellitu s\\.br\\> = 6.5 % Consist ent with diabete s mellitu s\\.br\\\\ .br\\Cheri betes monitor ing\\.br \\Target Value (ADA recomme nded): < 7 %\\.br\\ Free T4 Observa Value Referen Units Interpr [...] in 8:55 PM tile] source Desirab data le\\.br\\ 200 - 239 Borderl ine High\\.b r\\>= 240 High\\.b r\\\\.br\\ TRIGLYC 206 <=150 mg/dL High < 150 Feb 23 ERIDES. 2013 TOTAL Normal\\ 8:55 PM .br\\150 - 199 Borderl ine High\\.b r\\200 - 499 High\\.b r\\ >= 500 Very High\\.b r\\ CHOLEST 27 >=40 mg/dL Low > 60 Feb 23 EROLS.I 2013 N HDL Optimal 8:55 PM \\.br\\40 - 60 Accepta ble\\.br \\ < 40 Low\\.br \\ LDL 85 <=100 mg/dL No < 100 Feb 23 Calcula informa 2013 true tion in 8:56 PM source Optimal data \\.br\\10 0 - 129 Near or above optimal \\.br\\13 0 - 159 Borderl ine High\\.b r\\160 - 189 High\\.b r\\ >= 190 Very High\\.b r\\\\.br\\ Hepatic Pa Observa Value Referen Units Interpr [...] tion in tion in 1:39 PM BATTERY 3\\.br\\\\ source source source source .br\\COM data data data data PARISON : 11/26/19 12\\.br\\ \\.br\\HI STORY: Chest pain\\.b r\\\\.br\\ IMPRESS ION: Lungs clear, no acute disease . EK EKG 12 LEAD Observa Value Referen Units Interpr Notes Date tion ce etation Range Sinus No No No No Oct 6 tachyca informa informa informa informa 2013 rdia\\.b tion in tion in tion in tion in 12:04 r\\\\.br\\ source source source source PM Normal data [...] mechani sm forcomp ression of the right I8iuque roots and nerve in right paracen tral and right foramin al locatio ns.The C6-C7 and C7-T1 interve rtebral disc spaces are normal. IMPRESS ION: Diffuse discoge li changes at C5-C6, which appear more focally promine nt in rightpa racentr al and right foramin al locatio ns, which cause moderat e narrowi ngof the right [id number] l foramen , potenti ally causing a mechani sm for benji marycarmen of therigh t C6 nerve roots andnerv e in right paracen tral and right foramin al locatio ns.Othe r milder multile brian discoge li changes of the cervica l spine asdescr ibed above."
[2017-01-12 15:53] LABS: URINE BILIRUBIN - DIPSTICK NEGATIVE (NEG); URINE BLOOD NEGATIVE (NEG)
[2017-01-12 16:09] LABS: AMPHETAMINES/METAMPHETAMINES NEGATIVE ng/mL (<1000)
--- NOTE | 2017-01-12 16:25 | Emergency Room Report ---
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 N Clinical Suspician of Infection? N Mental Status: 1 - Regular (Normal Baseline) Sepsis Risk:Low Sepsis Risk Have you (or family members/close friends) recently traveled outside the [place]? N If Yes, where/when: Have you had exposure to infectious disease within the past month? N TB? Other? Specify: Source patient, RN notes reviewed, family, RN/MD Exam Limitations no limitations Comment This is a 56-year-old female patient presented to emergency room by ambulance with intermittent nausea and vomiting for the past 3 months. Patient denies any abdominal pain, any fever, any diarrhea. She denies any recent travel or exposure to sick contacts. Patient advised that on a previous episodes similar complaints she was diagnosed with a urinary tract infection. Her family physician has referred her to a director technical in [facility], with whom she has an appointment within the next 5-7 days. ALLERGIES Coded Allergies: Penicillins (Mild, NA-NAUSEA 11/11/16) guaifenesin (Mild, I-RASH 11/11/16) Home Medications Reported Medications LISINOPRIL (Lisinopril) 20 MG PO DAILY Gabapentin (Gabapentin 800MG) 800 MG PO Q8 #120 Ibuprofen (Ibu) 800 MG PO PRN PRN PAIN #90 OMEPRAZOLE MAGNESIUM (Prilosec 20MG) 40 MG PO DAILY Levothyroxine Sodium (Levothyroxine 0.075MG) 0.075 MG PO DAILY Atorvastatin Calcium (Atorvastatin) 40 MG PO DAILY Ranitidine Hcl (Ranitidine 150MG) 150 MG PO BID Aripiprazole 5 MG PO DAILY History Medical History General CAD? No Angina: No [place]: No Hypertension? Yes Hyperlipidemia? Yes CHF? No DVT? No PE? No COPD? Yes Asthma? No Anemia? No GERD? Yes Gastric ulcers? No GI Bleed? No Hernia? No Thyroid Problems? Yes Hypothyroidism? Yes CVA? No Seizures? No Diabetes? No Renal Insuffiency? No End Stage Renal Disease? No UTI? No Stones? No BPH? No GB Disease: No Nephritic Syndrome? No Asplenia? No Hepatitis? No Sickle Cell Disease? No Arthritis? Yes Migraines? No Cataracts? No Glaucoma? No MRSA? No HIV? No TB? No Anxiety? No Depression? No Cancer? No More? 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 Hx LMP N/A Family History Family Hx Diabetes Yes CAD Yes Hypertension Yes Hyperlipidemia Yes Cancer Yes TB No Social History Smoking Hx Smoker: Current Every Day Smoker Tobacco: Yes Type Cigarettes Packs/day 1 1/2 - 2 Packs Alcohol Alcohol: No Review of Systems All Other Systems Reviewed and Negative Gastrointestinal nausea, vomiting Physical Exam Vital Signs Vital Signs Date Time Temp Pulse Resp B/P Pulse O2 O2 Flow FiO2 Ox Delivery Rate 01/12 1555 88 16 103/51 96 01/12 1506 98.3 98 16 101/55 92 General Appearance normal appearance, WD/WN, no apparent distress Neck normal inspection, non-tender, supple, full range of motion Respiratory Status Yes: trachea midline, chest symmetrical, non tender chest. No: respiratory distress. Lung Sounds bilateral: normal breath sounds, lungs clear. 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 When asked what her stay for pain the patient responded "just Motrin ". Surprisingly her urine drug screen is positive for opiates and marijuana. Her workup today is suggestive of a urinary tract infection, plan is to send her home with antibiotics and have her follow-up with the director technical as previously scheduled. Results/Orders Laboratory Tests 01/12/17 1535: Sodium 139, Potassium 3.3 L, Chloride 103, Carbon Dioxide 26, BUN 7, Creatinine 0.7, Estimated Creat Clear 124, Estimated GFR (MDRD) 87, Glucose 99, Calcium 8.5 , Total Bilirubin 0.4, AST 9 L, ALT 23, Alkaline Phosphatase 126 H, Total Protein 7.0, Albumin 2.7 L, Globulin 4.3 H, Albumin/Globulin Ratio 0.6 L, Amylase 24 L, Lipase 78, WBC 5.9, RBC 4.72, Hgb 12.6, Hct 38.5, MCV 81.6 L, RDW 15.4, Plt Count 304, MPV 7.3 L, Gran % 68.2, Gran # 4.1, Lymphocytes % 26.6 , Monocytes % 3.7, Eosinophils % 1.0, Basophils % 0.4, Lymphocytes # 1.6, Monocytes # 0.2, Eosinophils # 0.1, Basophils # 0.0, PUBS MCHC 32.7, MCH 26.7 L , Opiates Screen POSITIVE H, Urine Methadone Screen NEGATIVE, Barbiturates NEGATIVE, Phencyclidine Screen NEGATIVE, Amphetamines Screen NEGATIVE, Benzodiazepines Screen NEGATIVE, Cocaine Screen NEGATIVE, Marijuana (THC) Screen POSITIVE H, Urine Color YELLOW, Urine Appearance CLEAR, Urine pH 7.0, Ur Specific [place] <= 1.005, Urine Protein NEGATIVE, Urine Ketones NEGATIVE, Urine Blood NEGATIVE, Urine Nitrate NEGATIVE, Urine Bilirubin NEGATIVE, Urine Urobilinogen 0.2, Ur Leukocyte Esterase 2+ H, Urine RBC OCC, Urine WBC 20-50, Ur Squamous Epith Cells 3-5, Urine Bacteria 2+, Urine Glucose NEGATIVE Current Medication Orders Sig/Param Start time Last Medication Dose Route Stop Time Status Admin Potassium Chloride 40 MEQ ONCE ONE 01/12 1700 AC PO 01/12 1701 Sodium Chloride 10 ML PRN PRN 01/12 1545 AC IV 01/13 1535 Sodium Chloride 1,000 ML .STK-MED ONE 01/12 1544 DC IV Ondansetron HCl 0 .STK-MED ONE 01/12 1543 DC .ROUTE Ondansetron HCl 4 MG ONCE ONE 01/12 1530 DC 01/12 IV 01/12 1531 1552 Sodium Chloride 1,000 ML .Q1H1M 01/12 1530 DC 01/12 IV 01/12 1630 1552 Sodium Chloride 10 ML PRN PRN 01/12 1530 AC / IV 01/13 1522 1551 Orders Procedure Date/time Status IV SALINE LOCK 01/12 1535 Active CULTURE, URINE 01/12 1535 Active DRUG ABUSE SCREEN (10) 01/12 1524 Complete URINALYSIS/COMPLETE 01/12 1523 Complete LIPASE 01/12 1523 Complete CBC WITH AUTO DIFF 01/12 1523 Complete CHEM 12 PROFILE 01/12 1523 Complete AMYLASE 01/12 1523 Complete Departure Departure Time of Disposition 1624 Disposition DC Home or Self Care(routine) Clinical Impression Primary Impression: UTI (urinary tract infection) Qualifiers: Urinary tract infection type: acute cystitis Hematuria presence: without hematuria Qualified Code: N30.00 - Acute cystitis without hematuria Secondary Impressions: Hypokalemia Nausea and vomiting Qualifiers: Vomiting type: unspecified Vomiting Intractability: unspecified Qualified Code: R11.2 - Nausea with vomiting, unspecified Condition STABLE Patient Instructions DI for Hypokalemia, DI for Urinary Tract Infection (UTI) Additional Instructions Please take the antibiotics prescribed as directed, follow up with your director technical, as previously scheduled, at [facility] in the next 2 days. Discharge Counseling Counseled pt/family regarding diagnosis, test results, medications/RX, home care, follow up needs Comment Please take the antibiotics prescribed as directed, follow up with your director technical, as previously scheduled, at [facility] in the next 2 days. Prescriptions Current Visit Scripts Ciprofloxacin HCl (Cipro 500MG TAB) 500 MG PO BID #20 TAB POTASSIUM CHL (Potassium Chloride) 20 MEQ PO DAILY #3 TAB ED Critical Care Critical Care No at [id number]
--- NOTE | 2017-01-12 16:25 | Emergency Room Report ---
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 N Clinical Suspician of Infection? N Mental Status: 1 - Regular (Normal Baseline) Sepsis Risk:Low Sepsis Risk Have you (or family members/close friends) recently traveled outside the [place]? N If Yes, where/when: Have you had exposure to infectious disease within the past month? N TB? Other? Specify: Source patient, RN notes reviewed, family, RN/MD Exam Limitations no limitations Comment This is a 56-year-old female patient presented to emergency room by ambulance with intermittent nausea and vomiting for the past 3 months. Patient denies any abdominal pain, any fever, any diarrhea. She denies any recent travel or exposure to sick contacts. Patient advised that on a previous episodes similar complaints she was diagnosed with a urinary tract infection. Her family physician has referred her to a lofter in [facility], with whom she has an appointment within the next 5-7 days. ALLERGIES Coded Allergies: Penicillins (Mild, NA-NAUSEA 11/11/16) guaifenesin (Mild, I-RASH 11/11/16) Home Medications Reported Medications LISINOPRIL (Lisinopril) 20 MG PO DAILY Gabapentin (Gabapentin 800MG) 800 MG PO Q8 #120 Ibuprofen (Ibu) 800 MG PO PRN PRN PAIN #90 OMEPRAZOLE MAGNESIUM (Prilosec 20MG) 40 MG PO DAILY Levothyroxine Sodium (Levothyroxine 0.075MG) 0.075 MG PO DAILY Atorvastatin Calcium (Atorvastatin) 40 MG PO DAILY Ranitidine Hcl (Ranitidine 150MG) 150 MG PO BID Aripiprazole 5 MG PO DAILY History Medical History General CAD? No Angina: No [place]: No Hypertension? Yes Hyperlipidemia? Yes CHF? No DVT? No PE? No COPD? Yes Asthma? No Anemia? No GERD? Yes Gastric ulcers? No GI Bleed? No Hernia? No Thyroid Problems? Yes Hypothyroidism? Yes CVA? No Seizures? No Diabetes? No Renal Insuffiency? No End Stage Renal Disease? No UTI? No Stones? No BPH? No GB Disease: No Nephritic Syndrome? No Asplenia? No Hepatitis? No Sickle Cell Disease? No Arthritis? Yes Migraines? No Cataracts? No Glaucoma? No MRSA? No HIV? No TB? No Anxiety? No Depression? No Cancer? No More? 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 N/A Family History Family Hx Diabetes Yes CAD Yes Hypertension Yes Hyperlipidemia Yes Cancer Yes TB No Social History Smoking Hx Smoker: Current Every Day Smoker Tobacco: Yes Type Cigarettes Packs/day 1 1/2 - 2 Packs Alcohol Alcohol: No Review of Systems All Other Systems Reviewed and Negative Gastrointestinal nausea, vomiting Physical Exam Vital Signs Vital Signs Date Time Temp Pulse Resp B/P Pulse O2 O2 Flow FiO2 Ox Delivery Rate 01/12 1555 88 16 103/51 96 01/12 1506 98.3 98 16 101/55 92 General Appearance normal appearance, WD/WN, no apparent distress Neck normal inspection, non-tender, supple, full range of motion Respiratory Status Yes: trachea midline, chest symmetrical, non tender chest. No: respiratory distress. Lung Sounds bilateral: normal breath sounds, lungs clear. 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 When asked what her stay for pain the patient responded "just Motrin ". Surprisingly her urine drug screen is positive for opiates and marijuana. Her workup today is suggestive of a urinary tract infection, plan is to send her home with antibiotics and have her follow-up with the lofter as previously scheduled. Results/Orders Laboratory Tests 01/12/17 1535: Sodium 139, Potassium 3.3 L, Chloride 103, Carbon Dioxide 26, BUN 7, Creatinine 0.7, Estimated Creat Clear 124, Estimated GFR (MDRD) 87, Glucose 99, Calcium 8.5 , Total Bilirubin 0.4, AST 9 L, ALT 23, Alkaline Phosphatase 126 H, Total Protein 7.0, Albumin 2.7 L, Globulin 4.3 H, Albumin/Globulin Ratio 0.6 L, Amylase 24 L, Lipase 78, WBC 5.9, RBC 4.72, Hgb 12.6, Hct 38.5, MCV 81.6 L, RDW 15.4, Plt Count 304, MPV 7.3 L, Gran % 68.2, Gran # 4.1, Lymphocytes % 26.6 , Monocytes % 3.7, Eosinophils % 1.0, Basophils % 0.4, Lymphocytes # 1.6, Monocytes # 0.2, Eosinophils # 0.1, Basophils # 0.0, PUBS MCHC 32.7, MCH 26.7 L , Opiates Screen POSITIVE H, Urine Methadone Screen NEGATIVE, Barbiturates NEGATIVE, Phencyclidine Screen NEGATIVE, Amphetamines Screen NEGATIVE, Benzodiazepines Screen NEGATIVE, Cocaine Screen NEGATIVE, Marijuana (THC) Screen POSITIVE H, Urine Color YELLOW, Urine Appearance CLEAR, Urine pH 7.0, Ur Specific [place] <= 1.005, Urine Protein NEGATIVE, Urine Ketones NEGATIVE, Urine Blood NEGATIVE, Urine Nitrate NEGATIVE, Urine Bilirubin NEGATIVE, Urine Urobilinogen 0.2, Ur Leukocyte Esterase 2+ H, Urine RBC OCC, Urine WBC 20-50, Ur Squamous Epith Cells 3-5, Urine Bacteria 2+, Urine Glucose NEGATIVE Current Medication Orders Sig/Param Start time Last Medication Dose Route Stop Time Status Admin Potassium Chloride 40 MEQ ONCE ONE 01/12 1700 AC PO 01/12 1701 Sodium Chloride 10 ML PRN PRN 01/12 1545 AC IV 01/13 1535 Sodium Chloride 1,000 ML .STK-MED ONE 01/12 1544 DC IV Ondansetron HCl 0 .STK-MED ONE 01/12 1543 DC .ROUTE Ondansetron HCl 4 MG ONCE ONE 01/12 1530 DC 01/12 IV 01/12 1531 1552 Sodium Chloride 1,000 ML .Q1H1M 01/12 1530 DC 01/12 IV 01/12 1630 1552 Sodium Chloride 10 ML PRN PRN 01/12 1530 AC / IV 01/13 1522 1551 Orders Procedure Date/time Status IV SALINE LOCK 01/12 1535 Active CULTURE, URINE 01/12 1535 Active DRUG ABUSE SCREEN (10) 01/12 1524 Complete URINALYSIS/COMPLETE 01/12 1523 Complete LIPASE 01/12 1523 Complete CBC WITH AUTO DIFF 01/12 1523 Complete CHEM 12 PROFILE 01/12 1523 Complete AMYLASE 01/12 1523 Complete Departure Departure Time of Disposition 1624 Disposition DC Home or Self Care(routine) Clinical Impression Primary Impression: UTI (urinary tract infection) Qualifiers: Urinary tract infection type: acute cystitis Hematuria presence: without hematuria Qualified Code: N30.00 - Acute cystitis without hematuria Secondary Impressions: Hypokalemia Nausea and vomiting Qualifiers: Vomiting type: unspecified Vomiting Intractability: unspecified Qualified Code: R11.2 - Nausea with vomiting, unspecified Condition STABLE Patient Instructions DI for Hypokalemia, DI for Urinary Tract Infection (UTI) Additional Instructions Please take the antibiotics prescribed as directed, follow up with your lofter, as previously scheduled, at [facility] in the next 2 days. Discharge Counseling Counseled pt/family regarding diagnosis, test results, medications/RX, home care, follow up needs Comment Please take the antibiotics prescribed as directed, follow up with your lofter, as previously scheduled, at [facility] in the next 2 days. Prescriptions Current Visit Scripts Ciprofloxacin HCl (Cipro 500MG TAB) 500 MG PO BID #20 TAB POTASSIUM CHL (Potassium Chloride) 20 MEQ PO DAILY #3 TAB ED Critical Care Critical Care No at [id number]
[2017-01-12] MEDS ORDERED: CIPRO 500MG TA500 MG PO (16:40)
[2017-01-12] MEDS ORDERED: K-DUR 20MEQ TA20 MEQ PO (16:53)
[2017-01-12 17:25] VITALS: BP 157/111
== END 2017-01-12 17:25 | disposition home or self-care (01) ==
LOC: ER 15:05
PROVIDERS: Emergency Medicine
DX: N30.00 Acute cystitis without hematuria (principal); R11.2 Nausea with vomiting, unspecified; I10 Essential (primary) hypertension; J44.9 Chronic obstructive pulmonary disease, unspecified; K21.9 Gastro-esophageal reflux disease without esophagitis; Z72.0 Tobacco use; Z79.899 Other long term (current) drug therapy
CPT/HCPCS: J2405